=== PATIENT | male | born 1945 | race Caucasian/White ===

== ENCOUNTER 2018-11-10 18:37 | Inpatient (IN) | payer MEDICARE, OTHER ==
[2018-11-10 19:34] LABS: #Basophils 0.1 thou/uL (0.0-0.2); #Eosinphils 0.2 thou/uL (0.0-0.7); #Lymphocytes 2.7 thou/uL (1.20-3.40); #Monocytes 0.9 thou/uL (0.11-0.59); #Neutrophils 7.7 thou/uL (1.40-6.50); %Basophils 0.6 % (0.0-1.0); %Lymphocytes 23.2 % (21.0-51.0); %Neutrophils 66.1 % (42.0-75.0); Hemoglobin 15.4 g/dL (14.0-18.0); Mean Corpuscular HGB CONC 32.4 g/dL (32.0-36.0); Mean Corpuscular Hemoglobin 27.5 pg (27.0-31.0); Mean Corpuscular Volume 85.1 fL (78.0-98.0); Mean Platelet Volume 10.4 fL (7.4-10.4); Platelet Count 189 thou/uL (130-400); RBC Distribution Width 14.8 % (11.5-14.5); Red Blood Cell (RBC) Count 5.59 mill/uL (4.70-6.10); White Blood Cell (WBC) Count 11.6 thou/uL (4.8-10.8)
[2018-11-10 19:51] LABS: ALT (SGPT) 47 U/L (8-55); AST (SGOT) 32 U/L (5-34); Albumin 3.7 g/dL (3.4-4.8); Alkaline Phosphatase 95 U/L (40-150); Anion Gap 13 mmol/L (10-20); BUN (Urea Nitrogen) 23 mg/dL (8.4-25.7); Bilirubin, Total 0.4 mg/dL (0.2-1.2); CK (CPK) 64 U/L (30-200); Calc. Creatinine Clearance 0 mL/min (70-130); Carbon Dioxide 23 mmol/L (23-31); Chloride 106 mmol/L (98-107); Estimated GFR-MDRD 41; Globulin 3.9 g/dL (2.4-3.5); Glucose 282 mg/dL (83-110); Potassium 4.4 mmol/L (3.5-5.1); Protein, Total 7.6 g/dL (5.8-8.1); Sodium 138 mmol/L (136-145)
[2018-11-10] MEDS ORDERED: methylPREDNISolone Sod Succ/PF 125 MG/2 ML VIAL ONE (20:10)
[2018-11-10] MEDS ORDERED: Water For Inject, Bacteriostat 30 ML ONE (20:10)
[2018-11-10] MEDS ORDERED: Nitroglycerin 2% Ointment 1 INCH/1 GM Packet ONE (20:10)
[2018-11-10 20:13] LABS: CKMB 3.3 ng/mL (0-6.6)
[2018-11-10] MEDS ORDERED: Furosemide 40 MG/4 ML VIAL ONE (20:24)
--- NOTE | 2018-11-10 20:29 | RAD ---
PORTABLE AP CHEST X-RAY 11/10/18 HISTORY: Dyspnea. COMPARISON: 01/24/11 FINDINGS: The left subclavian Mediport catheter has been removed. The cardiac silhouette is magnified by proje ction. There is increased perihilar interstitial densities bilaterally more prominent on the left. Th e findings may be related to either asymmetric edema or an infectious process. The left lateral costo phrenic angle is excluded from view. Vascular calcifications are seen in an ectatic thoracic aorta. N o other interval change. IMPRESSION: Increased perihilar interstitial densities greater on the left which may be related to pulmonary mary a or infectious process. Follow up to resolution is recommended. POS: AMY
--- NOTE | 2018-11-10 21:33 | PDOC.FPRHP ---
- History of Present Illness Chief Complaint: dyspnea History of Present Illness: 73 yo M with PMH of HTN, T2DM, DENAE, Crohns, HLD presents for SOB. He reports always being SOB, but yesterday it began worsening. He noticed he could only walk about 15 steps before breathing hard. Today his SOB continued to worsen, so he laid down and started using his CPAP, which helped. He could not take the CPAP off without feeling more SOB. He called EMS. When they arrived, he was hypoxic to the low 80s, so he was started on Bipap and his respiratory distress improved; his O2 sats improved to low 90s. CXR showed pulmonary edema, EKG showed new LBBB, QT prolongation, and 1st degree heart block. Trop was indeterminate. He denied any chest pain or fever. He was given nitrobid paste, lasix, duoneb, and methylprednisolone His breathing improved and he was taken off Bipap, satting 92% on RA with respirations of 20/min. Patient states he has been exposed to asbestos numerous times in his life, and is being worked up at [facility] for "lung problems." - Allergies/Adverse Reactions Allergies Allergy/AdvReac Type Severity Reaction Status Date / Time Sulfa (Sulfonamide Allergy Verified 01/23/16 13:47 Antibiotics) - Home Medications Medication Instructions Recorded Confirmed Type Diphenoxylate HCl/Atropine 2 tab PO QID PRN 12/14/14 11/10/18 History [Lomotil] Insulin Aspart [NovoLOG Vial] 70 unit SC TID 12/14/14 11/10/18 History Insulin Detemir 100 UNITS/ML 105 units SC BID 12/14/14 11/10/18 History [Levemir] Metoprolol Tartrate [Lopressor] 1 tab PO BID 12/14/14 11/10/18 History Oxymetazoline HCl [Afrin Nasal 2 - 3 spray EA NARE BID PRN 12/14/14 11/10/18 History [place]] traMADol HCl [Tramadol HCl] 50 mg PO Q8HR PRN 12/14/14 11/10/18 History Amlodipine Besylate [amLODIPine 10 mg PO DAILY 11/05/15 11/10/18 History Besylate] Cyclobenzaprine [Flexeril] 10 mg PO TID PRN 11/05/15 11/10/18 History Venlafaxine HCl [Venlafaxine HCl 3 tab PO DAILY 11/05/15 11/10/18 History ER] traZODone HCl 1 tab PO HS 11/05/15 11/10/18 History rOPINIRole HCl [Ropinirole HCl] 2 mg PO HS 11/09/15 11/10/18 History Ferrous Sulfate [Feosol] 325 mg PO QAM-WM #0 tab 03/09/16 11/10/18 Rx Atorvastatin Calcium 10 mg PO DAILY 11/10/18 11/10/18 History Loperamide HCl [Imodium] 2 mg PO ASDIR PRN 11/10/18 11/10/18 History Loratadine 10 mg PO DAILY 11/10/18 11/10/18 History Multivit-Min/FA/Lycopen/Lutein 1 each PO DAILY 11/10/18 11/10/18 History [Centrum Silver Tablet] Naproxen Sodium [Aleve] 220 mg PO BID PRN 11/10/18 11/10/18 History Tamsulosin HCl 0.4 mg PO DAILY 11/10/18 11/10/18 History guaiFENesin ER [Mucinex] 600 mg PO BID PRN 11/10/18 11/10/18 History - History PMHx: DM, HTN, HLD, COPD, Crohns, DENAE, anxiety, RLS, depression PSHx: total L knee x3, Rt kidney removed for benign growth in 2003, L shoulder surgery, cholecystectomy, L femur ortho surgery FHx: Denies fam hx of cardiac issues Social: former smoker, quit 40 yrs ago, 42 yr pack history; occasional scotch use <1/month, denies drug use. Formerly in the [employer]. - Review of Systems General: reports: weight/appetite/sleep changes (unable to eat much because of SOB). denies: fever/chills Eyes: denies: eye pain, vision changes ENT: reports: nasal congestion, rhinorrhea Respiratory: reports: congestion, shortness of breath, exercise intolerance. denies: cough Cardiovascular: reports: edema (occasional minimal swelling in feet/ankles). denies: chest pain, palpitation Gastrointestinal: reports: diarrhea (occasional, crohns). denies: nausea, vomiting, constipation, abdominal pain, GI bleeding Genitourinary: denies: dysuria, polyuria Skin: denies: rashes, lesions Musculoskeletal: reports: pain (low back pain chronic). denies: stiffness, swelling, arthritis/arthralgias Neurological: denies: numbness, syncope, weakness Psychological: reports: anxiety, depression - Vital signs BP: [135/97] HR: [85] RR: [20] Tmax: [98.8] Pox: [95]% on [bipap] Wt: [133 kg ] - Physical Exam Constitutional: NAD, awake, alert and oriented HEENT: normocephalic and atraumatic, PERRLA, EOMI, conjunctiva clear, grossly normal hearing, MMM, oropharynx clear Neck: supple, no LAD Heart: RRR, normal S1/S2, no murmurs/rubs/gallops, pulses present, other (trace pitting edema in BLE) Lungs: other (Respiration 20/minute on RA, sats 92% on RA; good air movement, + expiratory wheezes more pronounced at bases) Abdomen: soft, non-tender, bowel sounds present, other (obese) Musculoskeletal: normal structure, normal tone, ROM grossly normal Neurological: no focal deficit Skin: no rash/lesions, good turgor, capillary refill <2 seconds Heme/Lymphatic: no unusual bruising or bleeding, no petechia Psychiatric: normal mood and affect, good judgment and insight, intact recent and remote memory FMR H&P: Results - Labs Result Diagrams: 11/11/18 01:28 11/11/18 01:28 Lab results: WBC 11.6 thou/uL (4.8-10.8) H 11/10/18 19:18 Hgb 15.4 g/dL (14.0-18.0) 11/10/18 19:18 Hct 47.5 % (42.0-52.0) 11/10/18 19:18 MCV 85.1 fL (78.0-98.0) 11/10/18 19:18 Plt Count 189 thou/uL (130-400) 11/10/18 19:18 Neutrophils % 66.1 % (42.0-75.0) 11/10/18 19:18 Sodium 138 mmol/L (136-145) 11/10/18 19:18 Potassium 4.4 mmol/L (3.5-5.1) 11/10/18 19:18 Chloride 106 mmol/L (98-107) 11/10/18 19:18 Carbon Dioxide 23 mmol/L (23-31) 11/10/18 19:18 BUN 23 mg/dL (8.4-25.7) 11/10/18 19:18 Creatinine 1.66 mg/dL (0.7-1.3) H 11/10/18 19:18 Glucose 282 mg/dL (83-110) H 11/10/18 19:18 Calcium 9.0 mg/dL (7.8-10.44) 11/10/18 19:18 Total Bilirubin 0.4 mg/dL (0.2-1.2) 11/10/18 19:18 AST 32 U/L (5-34) 11/10/18 19:18 ALT 47 U/L (8-55) 11/10/18 19:18 Alkaline Phosphatase 95 U/L (40-150) 11/10/18 19:18 Creatine Kinase 64 U/L (30-200) 11/10/18 19:18 CK-MB (CK-2) 3.3 ng/mL (0-6.6) 11/10/18 19:18 B-Natriuretic Peptide 400.1 pg/mL (0-100) H 11/10/18 19:18 Serum Total Protein 7.6 g/dL (5.8-8.1) 11/10/18 19:18 Albumin 3.7 g/dL (3.4-4.8) 11/10/18 19:18 - EKG Interpretation EKG: New LBBB compared to EKG in 2010, prolonged QTc (>500), WA interval of 202 ( first degree heart block) - Radiology Interpretation Chest x-ray Status: image reviewed by me, report reviewed by me Additional comment: pulmonary congestion FMR H&P: A/P - Problem List (1) Acute respiratory failure with hypoxia Current Visit: Yes Status: Acute Code(s): J96.01 - ACUTE RESPIRATORY FAILURE WITH HYPOXIA (2) New onset left bundle branch block (LBBB) Current Visit: Yes Status: Acute Code(s): I44.7 - LEFT BUNDLE-BRANCH BLOCK, UNSPECIFIED (3) GRACE (acute kidney injury) Current Visit: Yes Status: Acute Code(s): N17.9 - ACUTE KIDNEY FAILURE, UNSPECIFIED (4) CKD (chronic kidney disease) Current Visit: Yes Status: Chronic Code(s): N18.9 - CHRONIC KIDNEY DISEASE, UNSPECIFIED (5) Prolonged Q-T interval on ECG Current Visit: Yes Status: Acute Code(s): R94.31 - ABNORMAL ELECTROCARDIOGRAM [ECG] [EKG] (6) First degree heart block by electrocardiogram Current Visit: Yes Status: Acute Code(s): I44.0 - ATRIOVENTRICULAR BLOCK, FIRST DEGREE (7) T2DM (type 2 diabetes mellitus) Current Visit: Yes Status: Chronic (8) HLD (hyperlipidemia) Current Visit: Yes Status: Chronic Code(s): E78.5 - HYPERLIPIDEMIA, UNSPECIFIED (9) BPH (benign prostatic hyperplasia) Current Visit: Yes Status: Chronic Code(s): N40.0 - BENIGN PROSTATIC HYPERPLASIA WITHOUT LOWER URINRY TRACT SYMP (10) RLS (restless legs syndrome) Current Visit: Yes Status: Chronic (11) Anxiety Current Visit: Yes Status: Chronic Code(s): F41.9 - ANXIETY DISORDER, UNSPECIFIED (12) Depression Current Visit: Yes Status: Chronic Code(s): F32.9 - MAJOR DEPRESSIVE DISORDER, SINGLE EPISODE, UNSPECIFIED (13) Crohns disease Current Visit: No Status: Chronic Code(s): K50.90 - CROHN'S DISEASE, UNSPECIFIED, WITHOUT COMPLICATIONS (14) DENAE (obstructive sleep apnea) Current Visit: No Status: Chronic Code(s): G47.33 - OBSTRUCTIVE SLEEP APNEA (ADULT) (PEDIATRIC) (15) HTN (hypertension) Current Visit: No Status: Chronic Code(s): I10 - ESSENTIAL (PRIMARY) HYPERTENSION Qualifiers: Hypertension type: essential hypertension Qualified Code(s): I10 - Essential (primary) hypertension - Plan 73 yo M presents with acute hypoxic respiratory failure 2/2 COPD vs CHF #Acute hypoxic respiratory failure 2/2 COPD vs CHF - Hypoxic to 80s via EMS, placed on Bipap and respiraotry distress improved, O2 improved to low 90s on Bipap - EKG showed new LBBB, prolonged QTc and Prolonged WA - CXR showed pulmonary edema - First trop indeterminate, continue to trend - Given Lasix, nitro, bipap, and steroids - Improved to 92% on RA, taken off bipap in ED - Admit to tele inpatient - Start lasix 40 BID - fluid restrict 1800 ml/day - AM BMP - Echo tomorrow - Consult cardiology in the AM - Duoneb q4h OUSMANE, albuterol q2h PRN - 40 mg PO steroids x 4 days - Doxycycline for pneumonia prophylaxis New LBBB -Cards consult in AM GRACE vs CKD -Cr of 1.66, elevated from last record in 2016 of 1.23 -History of Rt kidney removal 2/2 benign mass -Continue to monitor, may worsen with diuresis -Strict I/Os Prolonged QTC ->500 - Aware First degree heart block -WA interval of 202 -Aware, cards consult in AM Crohns - Continue home medication of Humira, immune compromised - Doxycycline for prophylaxis DM2 - Decrease home regimen (from 100 units) to 75 units Lantus BID as starting CC diet - Aggressive SSI - CC diet with fluid restriction DENAE -Cpap HTN - Home medication HLD - Home medication, increase from 10 mg to 40 mg QHS BPH - strict I/Os - continue tamsulosin RLS - ropinorole Anxiety - Aware Depression - Aware Morbid Obesity Diet: CC, 1800 ml/day fluid restrict Ppx: lovenox, pharmacy to dose Tele inpatient Code status: Cardiac only (no intubation) Dispo: >2 midnights FMR H&P: Upper Level - Pertinent history 73 yo WM PMH HTN, DM2, Chron's disease, and unspecified lung disease undergoing evaluation at [facility]/[place]. Reports 1 day history of worsening SOB/YU. States he always has some degree of SOB at baseline for past 2-3 years. Tried to lie down which made symptoms worse. Started using his CPAP which helped with SOB. Brought to ER by EMS. Initial SpO2 was low 80s on Room air. Started on BiPAP by EMS. Was weaned off BiPAP in ER. Denies chest pain, numbness, tingling, ZHANG, or weakness. ER course: Labs, EKG, CXR, Solumedrol 125 mg, Duoneb x1, lasix 40 mg, nitro paste x1 inch. PMH Tobacco abuse, hx exposure to asbestos. - Pertinent findings Vitals: BP: 135/84, SpO2 94%/RA, otherwise WNL GEN: NAD, speaks in full sentences, A&Ox4 CV: RRR, no murmur Pulm: Normal effort, diffuse wheezing, did not appreciate bibasilar crackles. Extrem: trace edema Labs: trop 0.238, BNP 400.1, Procal 0.04 1.66, WBC 11.6 CXR: Pulmonary edema vs infiltrate EKG: rate 88, SR with PVC, LBBB (new), WA interval 202, QTc 534 - Plan Date/Time: 11/10/182132 I, Hao Crawley MD, have evaluated this patient and agree with findings/plan as outlined by internet merchant resident. Pertinent changes/additions are listed here. 1. Acute hypoxic respiratory distress (Resolved) 2/2 CHF exacerbation vs COPD exacerbation: Initially required BiPAP but was titrated off in ER. continue lasix 40 mg IVP BID, fluid restriction 1800 mL/day, daily weights. Tele monitoring. Prednisone 40 mg daily. OUSMANE q4hr Duoneb. Since he is on humeria, will start doxycycline 2. Presumed new onset CHF: No record of CHF in chart. check TTE, cardiology consult tomorrow. He is already on metoprolol so I suspect this may be a known diagnosis. Patient denies hx of CHF. 3. COPD: see #1 4. HTN: home meds, PRNs available 5. HTN urgency: improving, PRN available 6. DM2: Home meds, hold metformin, 7. DENAE: CPAP HS 8. GRACE vs CKD: repeat BMP tomorrow 9. BPH: flomax, monitor urine output. 10. Crohns disease: home meds. 11. Prolonged QTc Interval: monitor. 12. Demand ischemia: trend trop x3. - PPx: lovenox - Diet: HH, CC, fluid restrict 1800 mL - CODE: DNI - Dispo: inpatient, telemetry, >[address] Cee. Addendum - Attending - Attending Attestation Date/Time: 11/11/18 1564 I personally evaluated the patient and discussed the management with Dr. Salmon and Dr Crawley last night. I agree with the History, Examination, Assessment and Plan documented above with any addition or exceptions noted below.
[2018-11-10] MEDS ORDERED: Cyclobenzaprine 10 MG TAB PO PRN (22:54)
[2018-11-10] MEDS ORDERED: Diphenoxylate HCl/Atropine Tablet PO PRN (22:54)
[2018-11-10] MEDS ORDERED: traMADol HCl 50 MG TAB PO PRN (22:54)
[2018-11-10] MEDS ORDERED: Loratadine 10 MG TAB PO SCH (23:00)
[2018-11-10] MEDS ORDERED: Acetaminophen 325 MG TAB PO PRN ×2 (23:09→23:11)
[2018-11-10] MEDS ORDERED: Ondansetron ODT 4 MG TAB SL PRN (23:09)
[2018-11-10] MEDS ORDERED: Ondansetron PF 4 MG/2 ML Vial IVP PRN (23:09)
[2018-11-10] MEDS ORDERED: Dextrose 50% Abboject 50 ML SYRINGE SLOW IVP PRN (23:11)
[2018-11-10] MEDS ORDERED: Insulin Regular 300 UNITS/3 ML VIAL SC PRN (23:11)
[2018-11-10] MEDS ORDERED: Acetaminophen 650 MG Suppository PR PRN (23:11)
[2018-11-10] MEDS ORDERED: Dextrose 5% in Water 1,000 ML IV PRN (23:11)
[2018-11-10 23:12] LABS: Troponin I 0.308 ng/mL (< 0.028)
--- NOTE | 2018-11-11 00:05 | PDOC.EVN ---
Event Note - Event Note Event Note: Date/Time: 11/11/18 0003 I personally evaluated the patient and discussed the management with Dr. Crawley and Dr. Salmon. H&P is pending. I will review and sign when available. I agree with the History, Examination, Assessment and Plan as discussed. COPD exacerbation with some concern for CHF. GRACE vs CKD.
[2018-11-11 01:36] LABS: #Lymphocytes 1.8 thou/uL (1.20-3.40); #Monocytes 0.1 thou/uL (0.11-0.59); #Neutrophils 8.4 thou/uL (1.40-6.50); %Basophils 0.2 % (0.0-1.0); %Eosinophils 0.2 % (0.0-10.0); %Lymphocytes 17.3 % (21.0-51.0); %Monocytes 0.5 % (0.0-10.0); %Neutrophils 81.8 % (42.0-75.0); Mean Corpuscular HGB CONC 32.6 g/dL (32.0-36.0); Mean Corpuscular Hemoglobin 27.6 pg (27.0-31.0); Mean Corpuscular Volume 84.7 fL (78.0-98.0); Mean Platelet Volume 10.7 fL (7.4-10.4); Platelet Count 183 thou/uL (130-400); RBC Distribution Width 14.8 % (11.5-14.5); Red Blood Cell (RBC) Count 5.44 mill/uL (4.70-6.10); White Blood Cell (WBC) Count 10.3 thou/uL (4.8-10.8)
[2018-11-11 02:02] LABS: Troponin I 0.244 ng/mL (< 0.028)
[2018-11-11 02:06] LABS: Anion Gap 18 mmol/L (10-20); BUN (Urea Nitrogen) 25 mg/dL (8.4-25.7); Calc. Creatinine Clearance 67 mL/min (70-130); Calcium 9.2 mg/dL (7.8-10.44); Carbon Dioxide 19 mmol/L (23-31); Chloride 105 mmol/L (98-107); Estimated GFR-MDRD 36; Glucose 463 mg/dL (83-110); Sodium 138 mmol/L (136-145)
[2018-11-11] MEDS: Amlodipine 10 MG TAB PO SCH (08:39)
[2018-11-11] MEDS: Metoprolol Tartrate 100 MG TAB PO SCH ×2 (08:40→20:34)
[2018-11-11] MEDS: Doxycycline 100 MG CAP PO SCH ×2 (08:40→20:34)
[2018-11-11] MEDS: predniSONE 20 MG TAB PO SCH (08:40)
[2018-11-11] MEDS: Famotidine 20 MG TAB PO SCH (08:40)
[2018-11-11] MEDS ORDERED: Enoxaparin Sodium 40 MG/0.4 ML SYRINGE SC SCH (09:00)
[2018-11-11] MEDS ORDERED: Prevnar 13-Val Conj/PF 0.5 ML SYRINGE IM ONE (09:00)
[2018-11-11] MEDS ORDERED: Insulin Glargine 75 UNITS in Pre-Filled Syringe 1 EACH SC SCH ×2 (09:00→21:00)
--- NOTE | 2018-11-11 09:14 | PDOC.FM ---
- Subjective Subjective: Vamsi Herndon seen at bedside this morning. He came in last night with severe dyspnea, requiring BiPAP but was titrated off in the ED. Required his normal CPAP for DENAE overnight. Started on prednisone, duonebs, and doxycycline for copd exac. He is feeling better this morning, states that his dyspnea is much improved. Denies any other acute issues since moving to the floor. Denies fever, chills, chest pain, n/v, diaphoresis. - Objective MAR Reviewed: Yes Vital Signs & Weight: Vital Signs (12 hours) Temp Pulse Resp BP Pulse Ox 11/11/18 08:39 102 H 11/11/18 08:36 98.0 F 102 H 16 144/86 H 93 L 11/11/18 04:00 97.8 F 96 20 147/77 H 94 L 11/10/18 23:05 97.7 F 99 18 143/71 H 94 L Weight Weight 130.89 kg I&O: 11/10/18 11/11/18 11/12/18 06:59 06:59 06:59 Intake Total 720 240 Output Total 575 400 Balance 145 -160 Result Diagrams: 11/11/18 01:28 11/11/18 01:28 Phys Exam - Physical Examination Constitutional: NAD HEENT: moist MMs, sclera anicteric Neck: no JVD, supple, full ROM Respiratory: no rales, no rhonchi mild diffuse expiratory wheezes Cardiovascular: RRR, no significant murmur Gastrointestinal: soft, non-tender Musculoskeletal: no edema, pulses present Neurological: non-focal, normal sensation, moves all 4 limbs Psychiatric: normal affect, A&O x 3 Skin: no rash Dx/Plan (1) Acute respiratory failure with hypoxia Code(s): J96.01 - ACUTE RESPIRATORY FAILURE WITH HYPOXIA Status: Acute (2) COPD exacerbation Code(s): J44.1 - CHRONIC OBSTRUCTIVE PULMONARY DISEASE W (ACUTE) EXACERBATION Status: Acute (3) New onset of congestive heart failure Code(s): I50.9 - HEART FAILURE, UNSPECIFIED Status: Acute (4) Acute kidney injury superimposed on CKD Code(s): N17.9 - ACUTE KIDNEY FAILURE, UNSPECIFIED; N18.9 - CHRONIC KIDNEY DISEASE, UNSPECIFIED Status: Acute (5) New onset left bundle branch block (LBBB) Code(s): I44.7 - LEFT BUNDLE-BRANCH BLOCK, UNSPECIFIED Status: Acute (6) DENAE (obstructive sleep apnea) Code(s): G47.33 - OBSTRUCTIVE SLEEP APNEA (ADULT) (PEDIATRIC) Status: Chronic (7) T2DM (type 2 diabetes mellitus) Status: Chronic (8) HTN (hypertension) Code(s): I10 - ESSENTIAL (PRIMARY) HYPERTENSION Status: Chronic Qualifiers: Hypertension type: essential hypertension Qualified Code(s): I10 - Essential (primary) hypertension (9) HLD (hyperlipidemia) Code(s): E78.5 - HYPERLIPIDEMIA, UNSPECIFIED Status: Chronic (10) BPH (benign prostatic hyperplasia) Code(s): N40.0 - BENIGN PROSTATIC HYPERPLASIA WITHOUT LOWER URINRY TRACT SYMP Status: Chronic - Plan Plan: 1) Acute hypoxic respiratory distress (Resolved): - likely 2/2 COPD exacerbation, with possible new onset CHF - 50 pk year history of smoking with known COPD, 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 - Continue fluid restriction 1800 mL/day, daily weights. - Prednisone 40 mg daily. OUSMANE q4hr Duoneb, and doxycycline 2) Presumed new onset CHF: - No record of CHF in chart. - Consulted cardiology, Dr. Tran, appreciate recs. - Continue home CCB and BB - Holding off on initiating low dose ACEI and Lasix at this time due to GRACE 3) COPD: - see #1 4) HTN: - home meds, PRNs available 5) HTN urgency: - improving, PRN available 6) DM2: Home meds, hold metformin, 7) DENAE: - CPAP HS 8) GRACE vs CKD: - avoiding nephrotoxic agents, repeat BMP tomorrow 9) BPH: - flomax, monitor urine output. 10) Crohns disease: - home meds. 11) Prolonged QTc Interval: - monitor on tele, avoid QT prolonging agents 12) Demand ischemia: - 3rd trop downtrended, highest trop was 0.308 Addendum - Attending - Attending Attestation Date/Time: 11/11/18 [id number] I personally evaluated the patient and discussed the management with Dr. Alvarez. I agree with the History, Examination, Assessment and Plan documented above with any addition or exceptions noted below. Pt's breathing is better. With new onset chf will consult cardiology.
[2018-11-11 09:58] LABS: Hemoglobin A1c 7.6 % (4.0-6.0)
[2018-11-11] MEDS ORDERED: INSULIN ASPART 70 UNIT SC SCH (15:00)
[2018-11-11] MEDS: HumaLOG 300 UNITS/3 ML VIAL SC SCH ×2 (15:59→20:36)
[2018-11-11] MEDS: rOPINIRole HCl 1 MG TAB PO SCH (20:33)
[2018-11-11] MEDS: traZODone HCl 50 MG TAB PO SCH (20:34)
[2018-11-11] MEDS: Tamsulosin HCl 0.4 MG CAP PO SCH (20:34)
[2018-11-11] MEDS: Insulin Glargine 75 UNITS in Pre-Filled Syringe 1 EACH SC SCH (20:37)
[2018-11-11] MEDS ORDERED: Atorvastatin Calcium 40 MG TAB PO SCH (21:00)
[2018-11-11] MEDS ORDERED: INSULIN DETEMIR SC SCH (21:00)
--- NOTE | 2018-11-11 21:50 | CON ---
DATE OF CONSULTATION: HISTORY OF PRESENT ILLNESS: Vamsi Herndon is a 73-year-old white male, who denies any previous cardiac problems, although at times looking over his records over the past 4 or 5 years, people do state that he has coronary artery disease. He denies ever being told that he had coronary artery disease. Denies any history of myocardial infarction. He also denies any chest, arm, neck or jaw discomfort. His main problem over the last 6 months to a year has been with exertional dyspnea. He denies any episodes of PND or orthopnea. He occasionally will have some pedal edema. He now was admitted on November 10 with severe shortness of breath after just walking 15 or 20 feet. He has a CPAP machine at home and used that, but he continued to feel short of breath. He called EMS and when they arrived, his O2 sats were in the low 80s. He was placed on BiPAP. His respiratory distress improved. He was given intravenous diuretics and states that his breathing is now better. Chest x-ray in the emergency room revealed increased pulmonary vascularity consistent with pulmonary edema. He also states that he has been evaluated by a cut off operator scorer at [facility] and was told that his lung function was only 65 %. 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 OPERATIONS: Left total knee replacement in December 2014 followed by removal of the prosthesis in October 2015 secondary to infection and then placement of a new total knee in january 2016, open cholecystectomy, right kidney removal for benign growth , left shoulder surgery, left femur surgery. MEDICATIONS: 1. Amlodipine 10 mg daily. 2. Atorvastatin 10 mg daily. 3. Flexeril 10 mg t.i.d. 4. Lomotil p.r.n. 5. Ferrous sulfate 325 q.a.m. 6. Mucinex 600 mg b.i.d. p.r.n. 7. NovoLog 70 units t.i.d. 8. Levemir 105 units b.i.d. 9. Imodium p.r.n. 10. Loratadine 10 mg daily. 11. Metoprolol 100 mg b.i.d. 12. Multivitamin daily. 13. Aleve 220 mg b.i.d. p.r.n. 14. Afrin nasal spray. 15. Ropinirole 2 mg at bedtime. 16. Flomax 0.4 mg daily. 17. Tramadol 50 mg q.8 hours p.r.n. 18. Trazodone 100 mg at bedtime. 19. Venlafaxine 3 tablets daily. ALLERGIES: SULFA. SOCIAL HISTORY: Smoked 3 packs per day, but stopped over 40 years ago. He occasionally drinks scotch. FAMILY HISTORY: Unremarkable for cardiac disease. REVIEW OF SYSTEMS: A 12-point review of systems is otherwise unremarkable. PHYSICAL EXAMINATION: VITAL SIGNS: Blood pressure 129/58, pulse of 91. HEENT: PERRL. NECK: Supple. CHEST: Clear but distant. CARDIOVASCULAR: S1 and S2 normal without any S3, S4, or murmurs. ABDOMEN: Obese. Normal bowel sounds. No tenderness. EXTREMITIES: Revealed no clubbing or cyanosis. There was trace pretibial edema. NEUROLOGIC: Grossly intact. SKIN: Warm and dry. LABORATORY DATA: EKG reveals sinus rhythm with occasional PVC and left bundle-branch block (new from 2014). Hemoglobin 15.0; hematocrit 46.0; white count 10,300; platelets 186,000. Sodium 138, potassium 4.0, chloride 105, carbon dioxide 19, BUN 25, creatinine 1.87, glucose 463. Troponin I is up to 0.308. BNP 400.1. Chest x-ray reveals pulmonary edema. IMPRESSION: 1. Acute hypoxic respiratory failure. 2. Chronic obstructive pulmonary disease. 3. Possible left ventricular dysfunction with evidence of pulmonary edema on chest x-ray. 4. Hypertension. 5. Diabetes. 6. Hypercholesterolemia. 7. Former smoker. 8. Obesity. 9. Obstructive sleep apnea. 10. Restless legs syndrome. 11. Crohn disease. PLAN: The patient will continue to be gently diuresed. Echocardiogram will be performed to assess left ventricular function. Further recommendations will be dependent upon the results of his echocardiogram. Job ID: [id number] [facility]
[2018-11-12 06:02] LABS: #Lymphocytes 2.6 thou/uL (1.20-3.40); #Monocytes 1.4 thou/uL (0.11-0.59); %Basophils 0.3 % (0.0-1.0); %Eosinophils 0.1 % (0.0-10.0); %Lymphocytes 18.8 % (21.0-51.0); %Neutrophils 70.9 % (42.0-75.0); Hemoglobin 12.9 g/dL (14.0-18.0); Mean Corpuscular HGB CONC 32.8 g/dL (32.0-36.0); Mean Corpuscular Hemoglobin 27.7 pg (27.0-31.0); Mean Corpuscular Volume 84.6 fL (78.0-98.0); Mean Platelet Volume 10.7 fL (7.4-10.4); Platelet Count 196 thou/uL (130-400); RBC Distribution Width 14.7 % (11.5-14.5); Red Blood Cell (RBC) Count 4.65 mill/uL (4.70-6.10); White Blood Cell (WBC) Count 14.1 thou/uL (4.8-10.8)
[2018-11-12 06:20] LABS: Anion Gap 15 mmol/L (10-20); BUN (Urea Nitrogen) 34 mg/dL (8.4-25.7); Calc. Creatinine Clearance 76 mL/min (70-130); Calcium 9.1 mg/dL (7.8-10.44); Carbon Dioxide 22 mmol/L (23-31); Cardiac Risk 3.6 (Less than 4.5); Chloride 109 mmol/L (98-107); Cholesterol 135 mg/dl (< 200 Desired); Estimated GFR-MDRD 41; Glucose 110 mg/dL (83-110); HDL Cholesterol 37 mg/dL (>60 Neg Risk); LDL Cholesterol, Calculated 76 mg/dL; Potassium 3.7 mmol/L (3.5-5.1); Sodium 142 mmol/L (136-145); Triglycerides 108 mg/dL (Less than 150)
[2018-11-12] MEDS ORDERED: Lidocaine 1% (PF) 30 ML VIAL ONE (06:40)
--- NOTE | 2018-11-12 06:40 | PDOC.FM ---
- Subjective Subjective: Vamsi Herndon seen at bedside this morning. Yesterday, his Echo showed EF of 20- 25% and he was scheduled for cardiac cath this morning. Cath was performed successfully and showed three vessel disease and patient is now planned to undergo CABG. From a respiratory standpoint he is doing very well. Denies any respiratory distress. Denies chest pain, n/v, fevers. - Objective MAR Reviewed: Yes Vital Signs & Weight: Vital Signs (12 hours) Temp Pulse Resp BP Pulse Ox 11/12/18 04:00 99.4 F 78 18 133/60 95 11/12/18 02:18 90 16 95 11/11/18 22:12 87 16 95 11/11/18 20:20 98.8 F 90 18 131/60 92 L Weight Weight 130.89 kg I&O: 11/10/18 11/11/18 11/12/18 06:59 06:59 06:59 Intake Total 720 1240 Output Total 575 800 Balance 145 440 Result Diagrams: 11/12/18 04:25 11/12/18 04:25 Phys Exam - Physical Examination Constitutional: NAD HEENT: moist MMs, sclera anicteric Neck: supple, full ROM Respiratory: no wheezing, no rales, no rhonchi, clear to auscultation bilateral Cardiovascular: RRR, no significant murmur Gastrointestinal: soft, non-tender, no distention Musculoskeletal: no edema, pulses present Neurological: non-focal, normal sensation, moves all 4 limbs Psychiatric: normal affect, A&O x 3 Skin: no rash Dx/Plan (1) Acute respiratory failure with hypoxia Code(s): J96.01 - ACUTE RESPIRATORY FAILURE WITH HYPOXIA Status: Resolved (2) COPD exacerbation Code(s): J44.1 - CHRONIC OBSTRUCTIVE PULMONARY DISEASE W (ACUTE) EXACERBATION Status: Acute (3) New onset of congestive heart failure Code(s): I50.9 - HEART FAILURE, UNSPECIFIED Status: Acute (4) Acute kidney injury superimposed on CKD Code(s): N17.9 - ACUTE KIDNEY FAILURE, UNSPECIFIED; N18.9 - CHRONIC KIDNEY DISEASE, UNSPECIFIED Status: Acute (5) New onset left bundle branch block (LBBB) Code(s): I44.7 - LEFT BUNDLE-BRANCH BLOCK, UNSPECIFIED Status: Acute (6) DENAE (obstructive sleep apnea) Code(s): G47.33 - OBSTRUCTIVE SLEEP APNEA (ADULT) (PEDIATRIC) Status: Chronic (7) T2DM (type 2 diabetes mellitus) Status: Chronic (8) HTN (hypertension) Code(s): I10 - ESSENTIAL (PRIMARY) HYPERTENSION Status: Chronic Qualifiers: Hypertension type: essential hypertension Qualified Code(s): I10 - Essential (primary) hypertension (9) HLD (hyperlipidemia) Code(s): E78.5 - HYPERLIPIDEMIA, UNSPECIFIED Status: Chronic (10) BPH (benign prostatic hyperplasia) Code(s): N40.0 - BENIGN PROSTATIC HYPERPLASIA WITHOUT LOWER URINRY TRACT SYMP Status: Chronic - Plan Plan: 1) Acute hypoxic respiratory distress (Resolved): - likely 2/2 COPD exacerbation, with possible new onset CHF - 50 pk year history of smoking with known COPD, 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 - Continue fluid restriction 1800 mL/day, daily weights. - Prednisone 40 mg daily. PRN q4hr Duoneb, and doxycycline 2) Presumed new onset CHF: - No record of CHF in chart. - Consulted cardiology, Dr. Tran, appreciate recs. - Continue home CCB and BB - Holding off on initiating low dose ACEI and Lasix at this time due to GRACE - Echo showed depressed LV function, EF of 20-25% - Underwent Cardiac Cath this morning showed 3 vessel disease - CV Surg has been consulted for CABG 3) COPD: - see #1 4) HTN: - home meds, PRNs available 5) HTN urgency: resolved - PRN available 6) DM2: - Home meds, hold metformin 7) DENAE: - CPAP HS 8) GRACE vs CKD: - avoiding nephrotoxic agents, repeat BMP tomorrow 9) BPH: - flomax, monitor urine output. 10) Crohns disease: - home meds. 11) Prolonged QTc Interval: - monitor on tele, avoid QT prolonging agents 12) Demand ischemia: - 3rd trop downtrended, highest trop was 0.308 Addendum - Attending - Attending Attestation Date/Time: 11/12/18 0729 I personally evaluated the patient and discussed the management with Dr. Alvarez. I agree with the History, Examination, Assessment and Plan documented above with any addition or exceptions noted below. Echo shows reduced ejection fraction. Pt taken to clinical laboratory technologist today which showed multi-vessel disease. CV surg will be consulted for CABG. Continue COPD treatment as well.
[2018-11-12] MEDS ORDERED: Heparin 10,000 UNITS/1 ML VIAL ONE (06:47)
[2018-11-12] MEDS ORDERED: Sodium Chloride 0.9% 1,000 ML IV SCH ×2 (07:30→08:46)
[2018-11-12] MEDS ORDERED: Communication Order-Pharmacy FS SCH ×2 (07:30→16:23)
[2018-11-12] MEDS ORDERED: Fentanyl 100 MCG/2 ML VIAL ONE (07:44)
[2018-11-12] MEDS ORDERED: Midazolam HCl 2 mg/2 ml Vial ONE (07:44)
[2018-11-12] MEDS ORDERED: Furosemide 40 MG/4 ML VIAL ONE (08:08)
[2018-11-12] MEDS ORDERED: Nitroglycerin 4.9 GM Bottle ONE (08:11)
[2018-11-12] MEDS ORDERED: Protamine Sulfate 50 MG/5 ML VIAL ONE (08:14)
[2018-11-12] MEDS ORDERED: Nitroglycerin 0.4 MG TAB (25 Tab Bottle) SL PRN (08:44)
[2018-11-12] MEDS ORDERED: traMADol HCl 50 MG TAB PO PRN (08:44)
[2018-11-12] MEDS ORDERED: Acetaminophen/Codeine 30-300mg Tablet PO PRN (08:44)
[2018-11-12] MEDS ORDERED: Sodium Chloride 0.9% 200 ML IV PRN (08:45)
[2018-11-12] MEDS: Amlodipine 10 MG TAB PO SCH (10:23)
[2018-11-12] MEDS: predniSONE 20 MG TAB PO SCH (10:24)
[2018-11-12] MEDS: Famotidine 20 MG TAB PO SCH (10:24)
[2018-11-12] MEDS: HumaLOG 300 UNITS/3 ML VIAL SC SCH ×3 (10:24→20:28)
[2018-11-12] MEDS: Doxycycline 100 MG CAP PO SCH ×2 (10:24→20:27)
[2018-11-12] MEDS: Metoprolol Tartrate 100 MG TAB PO SCH ×2 (10:24→20:31)
[2018-11-12] MEDS: Insulin Glargine 75 UNITS in Pre-Filled Syringe 1 EACH SC SCH ×2 (10:25→20:30)
[2018-11-12] MEDS ORDERED: Iopamidol 370 76% 100 ML VIAL ONE (10:53)
[2018-11-12] MEDS ORDERED: Iopamidol 370 76% 50 ML VIAL FS ONE (10:53)
--- NOTE | 2018-11-12 14:53 | CON ---
DATE OF CONSULTATION: 11/12/2018 REQUESTING PHYSICIAN: Dr. Tran. CHIEF COMPLAINT: Shortness of breath. HISTORY OF PRESENT ILLNESS: The patient is 73-year-old diabetic man, who for about two years has had problems with dyspnea on exertion. Up until that time, he maintained a reasonably active lifestyle, taking care of his horses, but over the last two years has had to slow down to the point, where when he brings hay from the [facility], he can only unload a couple of javid at a time before having to catch his breath. He had been at about that baseline for most of the last two years during which time he had gained a considerable amount of weight because of his decreasing level of activity, but then over the new year's holiday, he became dramatically much more short of breath. He does not recall any particular chest pain, pressure, or squeezing, or any other such symptoms radiating into his throat, jaws, back, shoulders, or arms. He tried to wait until the holiday passed to get an appointment with the doctor at the [facility], but after roughly a day of these symptoms gradually getting worse, he decided to come to the emergency room instead. At that point, he was only able to walk 20 feet or so before becoming profoundly short of breath. He had noticed some swelling in his legs, but he had not had any orthopnea or PND. His initial cardiac enzymes were elevated and a followup set did rise a little bit and then fall, but he did not have a dramatic spike. His initial BNP was elevated. His EKG showed a left bundle-branch block, which was new compared to an EKG several years ago. 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 MEDICATIONS: His home medications are; 1. Norvasc 10 mg a day. 2. Lopressor 100 mg b.i.d. 3. Lipitor 10 mg a day. 4. Flomax one a day. 5. Levemir insulin 105 units b.i.d. 6. NovoLog insulin 70 units t.i.d. 7. Ropinirole 2 mg a day. 8. Trazodone 100 mg a day. 9. Effexor, unquantified dose, three tablets a day. ALLERGIES: HE REPORTS ALLERGIES TO SULFA, WHICH CAUSES ITCHING. SOCIAL HISTORY: At one time smoked about three packs of cigarettes a day, but quit about 40 years ago. FAMILY HISTORY: He denies any of family history of coronary artery disease, but his father was diabetic. 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 REVIEW OF SYSTEMS: Negative for any transient eye, speech, facial, or extremity symptoms consistent with TIAs, negative for any extremity paresthesias. Negative for any claudication symptoms. Negative for any orthopnea or PND. Positive for some dependent edema. PHYSICAL EXAMINATION: VITAL SIGNS: He is 5 feet 11 inches, weighs 288 pounds, and appears reasonably comfortable. Heart rate is 84, blood pressure 143/67, temperature is 97.7, and room air O2 saturations are now 95%. By report, they were in the low 80s when EMS arrived. In the emergency room, there were 88% on room air, but came up to 99% on BiPAP. NECK: He has no JVD. No carotid bruits. CHEST: Clear to auscultation. HEART: He has regular rate and rhythm. ABDOMEN: His abdomen is protuberant, but soft and nontender. He has easily palpable radial, dorsalis pedis, and posterior tibial pulses. He has brisk capillary refill in his feet. He has 1+ pitting edema at the ankle. NEUROLOGIC: Grossly nonfocal. LABORATORY DATA: White count 11.6, hemoglobin 15.4, hematocrit 47.5, and platelets 189,000. Sodium 138, potassium 4.4, chloride 106, CO2 of 23, glucose 282, BUN 23, creatinine 1.66, estimated GFR was 41. His creatinine has remained stable during this brief hospitalization. His hemoglobin A1c was 7.6, calcium was 9.0, protein 7.6, albumin 3.7, bilirubin 0.4, alkaline phosphatase 95, AST 32, ALT 47. His initial troponin at about 0715 hours in the evening of the 1st was 0.238, at about 1030 hours was 0.308, and about 0115 hours on the 2nd, it was 0.244. His initial BNP was 400.1. Creatinine this morning was 1.66. Fasting lipids, triglycerides 108, cholesterol 135, LDL 76, HDL 37. DIAGNOSTIC DATA: His chest x-ray shows prominent pulmonary markings consistent with pulmonary edema. His EKG shows a left bundle-branch block. His cardiac catheterization shows right dominant system. He has a long area of high-grade stenosis between the relatively distal takeoff of a ramus type vessel bifurcated first diagonal, that diagonal has a high-grade lesion in its main trunk. The ramus type vessel is bifurcated and is large and reasonably normal. The groove circumflex appears to give off an occluded obtuse marginal filled by left-sided collaterals. The right coronary system has about a 60% or 70% mid lesion in it with a fairly large posterior descending. LVEF is around 20% to 30%. Aortic pressure is 138/72. LV pressures were 139/9 and 134/16 with EDPs of 29 and 36 respectively. IMPRESSION AND RECOMMENDATIONS: The patient may or may not have had a [id number] myocardial infarction precipitating this acute decompensation. He has been having failure symptoms that sound like they have been attributed to pulmonary disease for about two years now. When I asked him blow out hard against my hand, he was able to do so fairly forcefully, while at increased risk primarily from his cardiomyopathy. His best long-term outlook would be from successful coronary artery bypass surgery given his mild renal insufficiency at baseline and is dilated today. We will defer coronary artery bypass grafting to Friday. Job ID: [id number]
[2018-11-12] MEDS: Atorvastatin Calcium 20 MG TAB PO SCH (20:27)
[2018-11-12] MEDS: traZODone HCl 50 MG TAB PO SCH (20:31)
[2018-11-12] MEDS: Tamsulosin HCl 0.4 MG CAP PO SCH (20:31)
[2018-11-12] MEDS: Acetaminophen/Codeine 30-300mg Tablet PO PRN (20:36)
[2018-11-12] MEDS: rOPINIRole HCl 1 MG TAB PO SCH (22:46)
[2018-11-13 06:12] LABS: #Basophils 0.1 thou/uL (0.0-0.2); #Lymphocytes 3.5 thou/uL (1.20-3.40); #Monocytes 1.2 thou/uL (0.11-0.59); #Neutrophils 8.9 thou/uL (1.40-6.50); %Basophils 0.7 % (0.0-1.0); %Eosinophils 0.3 % (0.0-10.0); %Lymphocytes 25.3 % (21.0-51.0); %Monocytes 8.6 % (0.0-10.0); %Neutrophils 65.1 % (42.0-75.0); Hemoglobin 13.9 g/dL (14.0-18.0); Mean Corpuscular HGB CONC 32.2 g/dL (32.0-36.0); Mean Corpuscular Hemoglobin 27.4 pg (27.0-31.0); Mean Corpuscular Volume 85.1 fL (78.0-98.0); Mean Platelet Volume 10.2 fL (7.4-10.4); Platelet Count 199 thou/uL (130-400); Red Blood Cell (RBC) Count 5.05 mill/uL (4.70-6.10); White Blood Cell (WBC) Count 13.7 thou/uL (4.8-10.8)
[2018-11-13 06:32] LABS: Anion Gap 14 mmol/L (10-20); BUN (Urea Nitrogen) 30 mg/dL (8.4-25.7); Calc. Creatinine Clearance 86 mL/min (70-130); Calcium 8.5 mg/dL (7.8-10.44); Carbon Dioxide 22 mmol/L (23-31); Chloride 107 mmol/L (98-107); Estimated GFR-MDRD 49; Glucose 84 mg/dL (83-110); Potassium 4.2 mmol/L (3.5-5.1); Sodium 139 mmol/L (136-145)
--- NOTE | 2018-11-13 06:37 | PDOC.FM ---
- Subjective Subjective: Vamsi Herndon seen at bedside this morning. He is feeling well, he has no complaints and had no acute events overnight. From a respiratory standpoint, he is doing well. He is scheduled for a CABG on Friday11/16/18. Denies fever, chills, chest pain, dyspnea, n/v. - Objective MAR Reviewed: Yes Vital Signs & Weight: Vital Signs (12 hours) Temp Pulse Resp BP Pulse Ox 11/13/18 05:35 97 11/13/18 04:00 98.4 F 72 20 118/67 97 11/12/18 19:10 97.1 F L 83 18 139/64 95 Weight Weight 128.82 kg I&O: 11/11/18 11/12/18 11/13/18 06:59 06:59 06:59 Intake Total 720 2200 2440 Output Total 575 1425 3825 Balance 145 775 -1385 Result Diagrams: 11/13/18 05:58 11/13/18 05:58 Phys Exam - Physical Examination Constitutional: NAD HEENT: moist MMs, sclera anicteric Neck: supple, full ROM Respiratory: no wheezing, no rales, no rhonchi Cardiovascular: RRR, no significant murmur Gastrointestinal: soft, non-tender, no distention Musculoskeletal: no edema, pulses present Neurological: non-focal, normal sensation Psychiatric: normal affect, A&O x 3 Skin: no rash Dx/Plan (1) Acute respiratory failure with hypoxia Code(s): J96.01 - ACUTE RESPIRATORY FAILURE WITH HYPOXIA Status: Resolved (2) COPD exacerbation Code(s): J44.1 - CHRONIC OBSTRUCTIVE PULMONARY DISEASE W (ACUTE) EXACERBATION Status: Resolved (3) New onset of congestive heart failure Code(s): I50.9 - HEART FAILURE, UNSPECIFIED Status: Acute (4) Acute kidney injury superimposed on CKD Code(s): N17.9 - ACUTE KIDNEY FAILURE, UNSPECIFIED; N18.9 - CHRONIC KIDNEY DISEASE, UNSPECIFIED Status: Acute (5) New onset left bundle branch block (LBBB) Code(s): I44.7 - LEFT BUNDLE-BRANCH BLOCK, UNSPECIFIED Status: Acute (6) DENAE (obstructive sleep apnea) Code(s): G47.33 - OBSTRUCTIVE SLEEP APNEA (ADULT) (PEDIATRIC) Status: Chronic (7) T2DM (type 2 diabetes mellitus) Status: Chronic (8) HTN (hypertension) Code(s): I10 - ESSENTIAL (PRIMARY) HYPERTENSION Status: Chronic Qualifiers: Hypertension type: essential hypertension Qualified Code(s): I10 - Essential (primary) hypertension (9) HLD (hyperlipidemia) Code(s): E78.5 - HYPERLIPIDEMIA, UNSPECIFIED Status: Chronic (10) BPH (benign prostatic hyperplasia) Code(s): N40.0 - BENIGN PROSTATIC HYPERPLASIA WITHOUT LOWER URINRY TRACT SYMP Status: Chronic (11) CAD (coronary artery disease) Code(s): I25.10 - ATHSCL HEART DISEASE OF [place] CORONARY ARTERY W/O ANG PCTRS Status: Acute - Plan Plan: 1) Acute hypoxic respiratory distress (Resolved): - likely 2/2 COPD exacerbation, with possible new onset CHF - 50 pk year history of smoking with known COPD, 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 - Continue fluid restriction 1800 mL/day, daily weights. - Prednisone 40 mg daily. PRN q4hr Duoneb, and doxycycline 2) New onset CHF: - No record of CHF in chart. - Consulted cardiology, Dr. Tran, appreciate recs. - Continue home CCB and BB - Mild improvement in kidney function, starting low dose ACEI for cardiac remodeling - Echo showed depressed LV function, EF of 20-25% - Underwent Cardiac Cath this morning showed 3 vessel disease - CV Surg has been consulted for CABG 3) COPD: - see #1 4) HTN: - home meds, PRNs available 5) HTN urgency: resolved - PRN available 6) DM2: - Home meds, hold metformin 7) DENAE: - CPAP HS 8) GRACE vs CKD: - avoiding nephrotoxic agents, repeat BMP tomorrow 9) BPH: - flomax, monitor urine output. 10) Crohns disease: - home meds. 11) Prolonged QTc Interval: - monitor on tele, avoid QT prolonging agents 12) Demand ischemia: - 3rd trop downtrended, highest trop was 0.308 13) CAD: - known 3 vessel disease, s/p cardiac cath - scheduled for CABG on 11/16/18 Addendum - Attending - Attending Attestation Date/Time: 11/13/18 6598 I personally evaluated the patient and discussed the management with Dr. Antonio. I agree with the History, Examination, Assessment and Plan documented above with any addition or exceptions noted below. The patient is doing well. Will have cabg on Friday. Pt is helping administer his own insulin according to the sliding scale he follows.
[2018-11-13] MEDS: Doxycycline 100 MG CAP PO SCH ×2 (08:55→21:46)
[2018-11-13] MEDS: predniSONE 20 MG TAB PO SCH (08:55)
[2018-11-13] MEDS: Metoprolol Tartrate 100 MG TAB PO SCH ×2 (08:55→21:47)
[2018-11-13] MEDS: Amlodipine 10 MG TAB PO SCH (08:56)
[2018-11-13] MEDS: Acetaminophen/Codeine 30-300mg Tablet PO PRN (08:56)
[2018-11-13] MEDS: HumaLOG 300 UNITS/3 ML VIAL SC SCH ×3 (08:57→21:59)
[2018-11-13] MEDS: Famotidine 20 MG TAB PO SCH (08:57)
[2018-11-13] MEDS: Insulin Glargine 75 UNITS in Pre-Filled Syringe 1 EACH SC SCH ×2 (09:43→22:00)
[2018-11-13] MEDS: Lisinopril 2.5 MG TAB PO SCH (09:45)
--- NOTE | 2018-11-13 11:49 | PQF ---
CLINICAL DOCUMENTATION IMPROVEMENT CLARIFICATION FORM: ICD-10 Updated PLEASE DO AN ADDENDUM TO THE PROGRESS NOTE WITH ANY DOCUMENTATION UPDATES OR ADDITIONS AND CARRY THROUGH TO DC SUMMARY. THANK YOU. DATE: 11/13/18 ATTN : DR. ARMAS Please exercise your independent, professional judgment in responding to the clarification form. Clinical indicators are provided on the bottom of this form for your review Please check appropriate box(s): HEART FAILURE: A. TYPE: [ ] Systolic / HFrEF [ ] Diastolic / HFpEF [ x ] Combined Systolic / Diastolic B. ACUITY [ x ] Acute [ ] Acute on Chronic [ ] Chronic [ ] Other diagnosis [ ] Unable to determine In addition, please specify: Present on Admission (POA): [ x ] Yes [ ] No [ ] Unable to determine For continuity of documentation, please document condition throughout progress notes and discharge summary. Thank You. CLINICAL INDICATORS - SIGNS / SYMPTOMS / LABS PROGRESS NOTE 11/13: "NEW ONSET OF CONGESTIVE HEART FAILURE" ECHO REPORT: "EJECTION FRACTION IS VISUALLY ESTIMATED AT 20-25 %. BNP 400.1 RISKS: GRACE MORBID OBESITY HYPERTENSION TREATMENT: LASIX IV (ER) BIPAP DUONEBS (ER) NORVASC (1-PRESENT) LISINOPRIL (ORDERED 11/13) CARDIAC MONITORING CARDIOLOGY CONSULT ECHOCARDIOGRAM FLUID RESTRICTION MTDD
--- NOTE | 2018-11-13 15:12 | PDOC.CTH ---
Cardiology Progress Note - Subjective The pt seen and examined. No overnight events. No cardiac complaints. - Objective Vital Signs Temp Pulse Resp BP Pulse Ox 11/13/18 12:08 98.5 F 67 19 141/71 H 93 L 11/13/18 07:45 97.9 F 67 23 H 143/70 H 94 L 11/13/18 05:35 97 11/13/18 04:00 98.4 F 72 20 118/67 97 Weight 284 lb 11/12/18 11/13/18 11/14/18 06:59 06:59 06:59 Intake Total 2200 2440 Output Total 1425 3825 Balance 775 -1385 - Physical Examination General/Neuro: alert & oriented x3 Neck: no JVD present Lungs: CTA Heart: RRR Abdomen: soft Extremities: other: (No edema) - Telemetry Telemetry Rhythm: SR 70s - Labs Result Diagrams: 11/13/18 05:58 11/13/18 05:58 Troponin/CKMB CK-MB (CK-2) 3.3 ng/mL (0-6.6) 11/10/18 19:18 Troponin I 0.244 ng/mL (< 0.028) H 11/11/18 01:16 - Assessment/Plan 1. CAD with S/p LHC on 11/12/2018 with 30% stenosis in LMCA, 70% in Dig1, 70% in mid LAD, 100% in OM1, and 70% in prox. RCA - stable with Bblocker, statin and QUAN. Plan for CABG on Friday. Will start Heparin 500units SUBQ BID. Acute on chronic systolic HF with EF 20-25% - stable with no Diuretic and Bblocker and QUAN. Cont. to monitor 2. Acute hypoxic respiratory distress - stable 3. COPD ex - stable 4. HTN - stable with current med 5. GRACE - improving 6. DM type 2 - HgbA1c was 7.6. managed by PCP 7. Hyperlipidemia - on Statin 8. DENAE - on Home Cpap 9. Obesity - weight management education given to the pt. 10. Ex-smoker - smoking cessation education given to the pt 11. Crohns disease - MAR reviewed * Dr Tran's pt. Pt. seen and eval. by me. I agree with the A/P by the ACCOUNTS RECEIVABLE REPRESENTATIVE. He denies any complaints at this time. Chest clear. RRR. Plan for CABG next week.Add lovenox for now. Review of Systems - Review of Systems Constitutional: reports: no symptoms reported EENTM: reports: no symptoms reported Respiratory: reports: no symptoms reported Cardiac (ROS): reports: no symptoms reported ABD/GI: reports: no symptoms reported : reports: no symptoms reported Musculoskeletal: reports: no symptoms reported Skin: reports: no symptoms reported
[2018-11-13] MEDS: rOPINIRole HCl 1 MG TAB PO SCH (21:45)
[2018-11-13] MEDS: Tamsulosin HCl 0.4 MG CAP PO SCH (21:46)
[2018-11-13] MEDS: Atorvastatin Calcium 20 MG TAB PO SCH (21:46)
[2018-11-13] MEDS: Heparin 5,000 UNITS/ML VIAL SC SCH (21:47)
[2018-11-13] MEDS: traZODone HCl 50 MG TAB PO SCH (21:47)
--- NOTE | 2018-11-14 05:33 | PDOC.FM ---
- Subjective Subjective: Vamsi Herdnon seen at bedside this morning. He is doing well, has no complaints other than wanting to make sure he can watch the [employer] playoff game today. There were no acute events overnight. He has been sleeping well with CPAP. He is scheduled for CABG on Friday. Denies fever, chills, chest pain, dyspnea, n/v/ d. - Objective MAR Reviewed: Yes Vital Signs & Weight: Vital Signs (12 hours) Temp Pulse Resp BP Pulse Ox 11/14/18 03:20 96 11/14/18 03:09 98.1 F 64 14 124/60 94 L 11/13/18 20:40 98.6 F 69 19 147/70 H 94 L Weight Weight 128.82 kg I&O: 11/12/18 11/13/18 11/14/18 06:59 06:59 06:59 Intake Total 2200 2440 Output Total 1425 3825 Balance 775 -1385 Result Diagrams: 11/14/18 05:46 11/14/18 05:46 Phys Exam - Physical Examination Constitutional: NAD HEENT: moist MMs, sclera anicteric Neck: no JVD, supple, full ROM Respiratory: no wheezing, no rales, no rhonchi, clear to auscultation bilateral Cardiovascular: RRR, no significant murmur Gastrointestinal: soft, non-tender, no distention Musculoskeletal: no edema, pulses present Neurological: non-focal, normal sensation, moves all 4 limbs Psychiatric: normal affect, A&O x 3 Dx/Plan (1) Acute respiratory failure with hypoxia Code(s): J96.01 - ACUTE RESPIRATORY FAILURE WITH HYPOXIA Status: Resolved (2) COPD exacerbation Code(s): J44.1 - CHRONIC OBSTRUCTIVE PULMONARY DISEASE W (ACUTE) EXACERBATION Status: Resolved (3) New onset of congestive heart failure Code(s): I50.9 - HEART FAILURE, UNSPECIFIED Status: Acute (4) Acute kidney injury superimposed on CKD Code(s): N17.9 - ACUTE KIDNEY FAILURE, UNSPECIFIED; N18.9 - CHRONIC KIDNEY DISEASE, UNSPECIFIED Status: Acute (5) New onset left bundle branch block (LBBB) Code(s): I44.7 - LEFT BUNDLE-BRANCH BLOCK, UNSPECIFIED Status: Acute (6) DENAE (obstructive sleep apnea) Code(s): G47.33 - OBSTRUCTIVE SLEEP APNEA (ADULT) (PEDIATRIC) Status: Chronic (7) T2DM (type 2 diabetes mellitus) Status: Chronic (8) HTN (hypertension) Code(s): I10 - ESSENTIAL (PRIMARY) HYPERTENSION Status: Chronic Qualifiers: Hypertension type: essential hypertension Qualified Code(s): I10 - Essential (primary) hypertension (9) HLD (hyperlipidemia) Code(s): E78.5 - HYPERLIPIDEMIA, UNSPECIFIED Status: Chronic (10) BPH (benign prostatic hyperplasia) Code(s): N40.0 - BENIGN PROSTATIC HYPERPLASIA WITHOUT LOWER URINRY TRACT SYMP Status: Chronic (11) CAD (coronary artery disease) Code(s): I25.10 - ATHSCL HEART DISEASE OF [place] CORONARY ARTERY W/O ANG PCTRS Status: Acute - Plan Plan: 1) Acute hypoxic respiratory distress (Resolved): - likely 2/2 COPD exacerbation, with possible new onset CHF - 50 pk year history of smoking with known COPD, 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 - Day #4 of Prednisone 40 mg daily. PRN q4hr Duoneb, and doxycycline day #4 2) New onset CHF: - No record of CHF in chart. - Consulted cardiology, Dr. Tran, appreciate recs. - Continue home CCB and BB and ACEI - Mild improvement in kidney function - Echo showed depressed LV function, EF of 20-25% - Underwent Cardiac Cath this morning showed 3 vessel disease - CV Surg consulted, scheduled for CABG on Friday 3) COPD: - see #1 4) HTN: - home meds, PRNs available 5) HTN urgency: resolved - PRN available 6) DM2: - Home meds, hold metformin 7) DENAE: - CPAP HS 8) GRACE vs CKD: - avoiding nephrotoxic agents, repeat BMP tomorrow 9) BPH: - flomax, monitor urine output. 10) Crohns disease: - home meds. 11) Prolonged QTc Interval: - monitor on tele, avoid QT prolonging agents 12) Demand ischemia: - 3rd trop downtrended, highest trop was 0.308 13) CAD: - known 3 vessel disease, s/p cardiac cath - scheduled for CABG on 11/16/18 Addendum - Attending - Attending Attestation Date/Time: 11/14/18 0955 I personally evaluated the patient and discussed the management with Dr. Alvarez. I agree with the History, Examination, Assessment and Plan documented above with any addition or exceptions noted below. Patient doing well. Awaiting CABG Friday. Adjust HTN meds as needed in the interim. No concerns at this time.
[2018-11-14 06:49] LABS: #Basophils 0.1 thou/uL (0.0-0.2); #Eosinphils 0.1 thou/uL (0.0-0.7); #Lymphocytes 4.2 thou/uL (1.20-3.40); #Monocytes 1.3 thou/uL (0.11-0.59); #Neutrophils 7.8 thou/uL (1.40-6.50); %Basophils 0.9 % (0.0-1.0); %Eosinophils 0.9 % (0.0-10.0); %Lymphocytes 31.3 % (21.0-51.0); %Monocytes 9.4 % (0.0-10.0); %Neutrophils 57.5 % (42.0-75.0); Hemoglobin 13.7 g/dL (14.0-18.0); Mean Corpuscular HGB CONC 30.6 g/dL (32.0-36.0); Mean Corpuscular Hemoglobin 26.3 pg (27.0-31.0); Mean Corpuscular Volume 85.9 fL (78.0-98.0); Mean Platelet Volume 10.7 fL (7.4-10.4); Platelet Count 209 thou/uL (130-400); RBC Distribution Width 14.8 % (11.5-14.5); Red Blood Cell (RBC) Count 5.21 mill/uL (4.70-6.10); White Blood Cell (WBC) Count 13.5 thou/uL (4.8-10.8)
[2018-11-14 06:58] LABS: Anion Gap 12 mmol/L (10-20); BUN (Urea Nitrogen) 25 mg/dL (8.4-25.7); Calc. Creatinine Clearance 60 mL/min (70-130); Calcium 8.4 mg/dL (7.8-10.44); Carbon Dioxide 23 mmol/L (23-31); Chloride 106 mmol/L (98-107); Estimated GFR-MDRD 52; Glucose 129 mg/dL (83-110); Potassium 4.2 mmol/L (3.5-5.1); Sodium 137 mmol/L (136-145)
[2018-11-14] MEDS: Metoprolol Tartrate 100 MG TAB PO SCH ×2 (08:58→20:38)
[2018-11-14] MEDS: Famotidine 20 MG TAB PO SCH (08:58)
[2018-11-14] MEDS: Amlodipine 10 MG TAB PO SCH (08:58)
[2018-11-14] MEDS: Lisinopril 2.5 MG TAB PO SCH (08:58)
[2018-11-14] MEDS: Doxycycline 100 MG CAP PO SCH ×2 (08:58→20:38)
[2018-11-14] MEDS: Heparin 5,000 UNITS/ML VIAL SC SCH ×2 (08:59→20:38)
[2018-11-14] MEDS: HumaLOG 300 UNITS/3 ML VIAL SC SCH ×3 (08:59→20:37)
[2018-11-14] MEDS: Insulin Glargine 75 UNITS in Pre-Filled Syringe 1 EACH SC SCH ×2 (08:59→20:37)
[2018-11-14] MEDS: predniSONE 20 MG TAB PO SCH (09:05)
--- NOTE | 2018-11-14 12:09 | RAD ---
CHEST 2 VIEWS: Date: 11/14/18 HISTORY: CHF. COMPARISON: 11/10/18. FINDINGS: Cardiac silhouette and pulmonary vasculature are now unremarkable. Lungs remain slightly hyperinflate d. Mild left basilar atelectasis. Pleural thickening along the lateral margin of each hemithorax is s imilar in appearance to the prior study. No confluent air space consolidation, pneumothorax, or pleur al fluid. diet technician registered leads overlie the chest. IMPRESSION: Interval improvement and resolution of pulmonary vascular congestion. No new abnormalities are demons trated. POS: SONIDO
[2018-11-14] MEDS: rOPINIRole HCl 1 MG TAB PO SCH (20:38)
[2018-11-14] MEDS: Atorvastatin Calcium 20 MG TAB PO SCH (20:38)
[2018-11-14] MEDS: traZODone HCl 50 MG TAB PO SCH (20:38)
[2018-11-14] MEDS: Tamsulosin HCl 0.4 MG CAP PO SCH (20:38)
--- NOTE | 2018-11-14 21:17 | PDOC.CTH ---
Cardiology Progress Note - Subjective The pt seen and examined. No overnight events. No cardiac complaints. - Objective Vital Signs Temp Pulse Resp BP Pulse Ox 11/14/18 15:50 98.0 F 68 18 116/59 L 94 L 11/14/18 12:21 97.9 F 68 18 123/56 L 93 L Weight 288 lb 3.2 oz 11/13/18 11/14/18 11/15/18 06:59 06:59 06:59 Intake Total 2440 240 Output Total 3825 1175 Balance -1385 -935 - Physical Examination General/Neuro: alert & oriented x3 Neck: no JVD present Lungs: CTA Heart: RRR Abdomen: soft Extremities: other: - Telemetry Telemetry Rhythm: SR 70s - Labs Result Diagrams: 11/14/18 05:46 11/14/18 05:46 Troponin/CKMB CK-MB (CK-2) 3.3 ng/mL (0-6.6) 11/10/18 19:18 Troponin I 0.244 ng/mL (< 0.028) H 11/11/18 01:16 - Assessment/Plan 1. CAD with S/p LHC on 11/12/2018 with 30% stenosis in LMCA, 70% in Dig1, 70% in mid LAD, 100% in OM1, and 70% in prox. RCA - stable with Bblocker, statin, Heparin subq, and QUAN. Plan for CABG on Friday. 2. Acute on chronic systolic HF with EF 20-25% - stable with no Diuretic. On Bblocker and QUAN. Cont. to monitor 3. Acute hypoxic respiratory distress - stable 4. COPD ex - stable 5. HTN - stable with current med 6. GRACE - improving 7. DM type 2 - HgbA1c was 7.6. managed by PCP 8. Hyperlipidemia - on Statin 9. DENAE - on Home Cpap 10. Obesity - weight management education given to the pt. 11. Ex-smoker - smoking cessation education given to the pt 12. Crohns disease - MAR reviewed * Dr Tran's pt. Review of Systems - Review of Systems Constitutional: reports: no symptoms reported EENTM: reports: no symptoms reported Respiratory: reports: no symptoms reported Cardiac (ROS): reports: no symptoms reported ABD/GI: reports: no symptoms reported : reports: no symptoms reported Musculoskeletal: reports: no symptoms reported Skin: reports: no symptoms reported
--- NOTE | 2018-11-15 05:36 | PDOC.FM ---
- Subjective Subjective: Vamsi Herndon seen at bedside this morning. He is doing well, he has no complaints, and there were no acute events overnight. He states that he is ready to get his surgery done. Scheduled for CABG tomorrow morning. He denies any chest pain, fever, chills, dyspnea, n/v. - Objective MAR Reviewed: Yes Vital Signs & Weight: Vital Signs (12 hours) Temp Pulse Resp BP Pulse Ox 11/15/18 04:00 97.7 F 64 16 132/71 93 L 11/14/18 20:00 96 11/14/18 19:56 98.2 F 71 16 135/64 96 Weight Weight 136.35 kg I&O: 11/13/18 11/14/18 11/15/18 06:59 06:59 06:59 Intake Total 2440 240 Output Total 3825 1175 Balance -1385 -935 Result Diagrams: 11/14/18 05:46 11/15/18 06:01 Phys Exam - Physical Examination Constitutional: NAD HEENT: moist MMs, sclera anicteric Neck: supple, full ROM Respiratory: no wheezing, no rales, no rhonchi, clear to auscultation bilateral Cardiovascular: RRR, no significant murmur Gastrointestinal: soft, non-tender, no distention Musculoskeletal: no edema, pulses present Neurological: non-focal, normal sensation, moves all 4 limbs Psychiatric: normal affect, A&O x 3 Skin: no rash Dx/Plan (1) Acute respiratory failure with hypoxia Code(s): J96.01 - ACUTE RESPIRATORY FAILURE WITH HYPOXIA Status: Resolved (2) COPD exacerbation Code(s): J44.1 - CHRONIC OBSTRUCTIVE PULMONARY DISEASE W (ACUTE) EXACERBATION Status: Resolved (3) New onset of congestive heart failure Code(s): I50.9 - HEART FAILURE, UNSPECIFIED Status: Acute (4) Acute kidney injury superimposed on CKD Code(s): N17.9 - ACUTE KIDNEY FAILURE, UNSPECIFIED; N18.9 - CHRONIC KIDNEY DISEASE, UNSPECIFIED Status: Acute (5) New onset left bundle branch block (LBBB) Code(s): I44.7 - LEFT BUNDLE-BRANCH BLOCK, UNSPECIFIED Status: Acute (6) DENAE (obstructive sleep apnea) Code(s): G47.33 - OBSTRUCTIVE SLEEP APNEA (ADULT) (PEDIATRIC) Status: Chronic (7) T2DM (type 2 diabetes mellitus) Status: Chronic (8) HTN (hypertension) Code(s): I10 - ESSENTIAL (PRIMARY) HYPERTENSION Status: Chronic Qualifiers: Hypertension type: essential hypertension Qualified Code(s): I10 - Essential (primary) hypertension (9) HLD (hyperlipidemia) Code(s): E78.5 - HYPERLIPIDEMIA, UNSPECIFIED Status: Chronic (10) BPH (benign prostatic hyperplasia) Code(s): N40.0 - BENIGN PROSTATIC HYPERPLASIA WITHOUT LOWER URINRY TRACT SYMP Status: Chronic (11) CAD (coronary artery disease) Code(s): I25.10 - ATHSCL HEART DISEASE OF [place] CORONARY ARTERY W/O ANG PCTRS Status: Acute - Plan Plan: 1) Acute hypoxic respiratory distress (Resolved): - likely 2/2 COPD exacerbation, with possible new onset CHF - 50 pk year history of smoking with known COPD, 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 - Day #5 of Prednisone 40 mg daily. PRN q4hr Duoneb, and doxycycline day #5 2) New onset CHF: - No record of CHF in chart. - Consulted cardiology, Dr. Tran, appreciate recs. - Continue home CCB and BB and ACEI - Mild improvement in kidney function - Echo showed depressed LV function, EF of 20-25% - Underwent Cardiac Cath, showed 3 vessel disease - CV Surg consulted, scheduled for CABG on Friday 3) COPD: - see #1 4) HTN: - home meds, PRNs available 5) HTN urgency: resolved - PRN available 6) DM2: - Home meds, hold metformin 7) DENAE: - CPAP HS 8) GRACE vs CKD: improving - avoiding nephrotoxic agents 9) BPH: - flomax 10) Crohns disease: - home meds. 11) Prolonged QTc Interval: - monitor on tele, avoid QT prolonging agents 12) Demand ischemia: - 3rd trop downtrended, highest trop was 0.308 13) CAD: - known 3 vessel disease, s/p cardiac cath - scheduled for CABG on 11/16/18 Addendum - Attending - Attending Attestation Date/Time: 11/15/18 8418 I personally evaluated the patient and discussed the management with Dr. Alvarez. I agree with the History, Examination, Assessment and Plan documented above with any addition or exceptions noted below. Patient doing well and in good spirits this morning. Awaiting CABG tomorrow. No acute events and no changes to regimen today.
[2018-11-15 06:24] LABS: INR-International Normal Ratio 1.1; PTT 30.4 SEC (22.9-36.1); Prothrombin Time 14.3 SEC (12.0-14.7)
[2018-11-15 06:38] LABS: Anion Gap 13 mmol/L (10-20); BUN (Urea Nitrogen) 26 mg/dL (8.4-25.7); Calc. Creatinine Clearance 90 mL/min (70-130); Calcium 8.8 mg/dL (7.8-10.44); Carbon Dioxide 23 mmol/L (23-31); Chloride 106 mmol/L (98-107); Estimated GFR-MDRD 50; Glucose 105 mg/dL (83-110); Potassium 3.8 mmol/L (3.5-5.1); Sodium 138 mmol/L (136-145)
[2018-11-15] MEDS: Heparin 5,000 UNITS/ML VIAL SC SCH ×2 (09:09→20:46)
[2018-11-15] MEDS: Doxycycline 100 MG CAP PO SCH ×2 (09:10→20:46)
[2018-11-15] MEDS: Metoprolol Tartrate 100 MG TAB PO SCH ×2 (09:10→20:45)
[2018-11-15] MEDS: Lisinopril 2.5 MG TAB PO SCH (09:10)
[2018-11-15] MEDS: predniSONE 20 MG TAB PO SCH (09:10)
[2018-11-15] MEDS: Amlodipine 10 MG TAB PO SCH (09:10)
[2018-11-15] MEDS: Famotidine 20 MG TAB PO SCH (09:10)
[2018-11-15] MEDS: Insulin Glargine 75 UNITS in Pre-Filled Syringe 1 EACH SC SCH (09:11)
[2018-11-15] MEDS: HumaLOG 300 UNITS/3 ML VIAL SC SCH (13:50)
[2018-11-15] MEDS: NOVOLOG SC SCH ×2 (13:50→18:52)
[2018-11-15] MEDS ORDERED: NOVOLOG SC SCH (17:00)
--- NOTE | 2018-11-15 17:44 | PDOC.CTH ---
Cardiology Progress Note - Subjective The pt seen and examined. No overnight events. No cardiac complaints. - Objective Vital Signs Temp Pulse Resp BP Pulse Ox 11/15/18 15:51 98.0 F 70 18 140/67 94 L 11/15/18 12:00 98.1 F 68 18 121/68 94 L 11/15/18 09:15 95 11/15/18 07:35 97.9 F 76 18 140/72 95 Weight 290 lb 4.8 oz 11/14/18 11/15/18 11/16/18 06:59 06:59 06:59 Intake Total 240 Output Total 1175 Balance -935 - Physical Examination General/Neuro: alert & oriented x3 Neck: no JVD present Lungs: other: (diminished at bases) Heart: RRR Abdomen: soft Extremities: other: (No edema) - Telemetry Telemetry Rhythm: SR - Labs Result Diagrams: 11/14/18 05:46 11/16/18 05:16 Troponin/CKMB CK-MB (CK-2) 3.3 ng/mL (0-6.6) 11/10/18 19:18 Troponin I 0.244 ng/mL (< 0.028) H 11/11/18 01:16 - Assessment/Plan 1. CAD with S/p LHC on 11/12/2018 with 30% stenosis in LMCA, 70% in Dig1, 70% in mid LAD, 100% in OM1, and 70% in prox. RCA - stable with Bblocker, statin, Heparin subq, and QUAN. Plan for CABG on Friday. 2. Acute on chronic systolic HF with EF 20-25% - stable with no Diuretic. On Bblocker and QUAN. Cont. to monitor 3. Acute hypoxic respiratory distress - stable 4. COPD ex - stable 5. HTN - stable with current med 6. GRACE - improving 7. DM type 2 - HgbA1c was 7.6. managed by PCP 8. Hyperlipidemia - on Statin 9. DENAE - on Home Cpap 10. Obesity - weight management education given to the pt. 11. Ex-smoker - smoking cessation education given to the pt 12. Crohns disease - MAR reviewed Pt. seen and eval. by me. I agree with the A/P by the COMMUNITY DIETITIAN. Chest clear. RRR, No edema.Pt. waiting for CABG. * Dr Tran's pt. * Plan for CABG on Friday by Dr Tran. Review of Systems - Review of Systems Constitutional: reports: no symptoms reported EENTM: reports: no symptoms reported Respiratory: reports: no symptoms reported Cardiac (ROS): reports: no symptoms reported ABD/GI: reports: no symptoms reported : reports: no symptoms reported Musculoskeletal: reports: no symptoms reported
[2018-11-15] MEDS: traZODone HCl 50 MG TAB PO SCH (20:45)
[2018-11-15] MEDS: Tamsulosin HCl 0.4 MG CAP PO SCH (20:46)
[2018-11-15] MEDS: Atorvastatin Calcium 20 MG TAB PO SCH (20:46)
[2018-11-15] MEDS: rOPINIRole HCl 1 MG TAB PO SCH (20:48)
[2018-11-15] MEDS ORDERED: LEVEMIR SC SCH (21:00)
[2018-11-15] MEDS ORDERED: HumaLOG 300 UNITS/3 ML VIAL SC SCH (21:00)
[2018-11-16] MEDS: Lisinopril 2.5 MG TAB PO SCH (05:40)
[2018-11-16] MEDS: Metoprolol Tartrate 100 MG TAB PO SCH (05:41)
[2018-11-16 06:14] LABS: Anion Gap 14 mmol/L (10-20); BUN (Urea Nitrogen) 29 mg/dL (8.4-25.7); Calc. Creatinine Clearance 103 mL/min (70-130); Calcium 8.7 mg/dL (7.8-10.44); Carbon Dioxide 25 mmol/L (23-31); Chloride 105 mmol/L (98-107); Estimated GFR-MDRD 44; Glucose 179 mg/dL (83-110); Potassium 4.7 mmol/L (3.5-5.1); Sodium 139 mmol/L (136-145)
[2018-11-16] MEDS ORDERED: CABG-Vancomycin 1 GM in Premix Bag 1 BAG IVPB SCH (06:30)
[2018-11-16] MEDS ORDERED: Albumin 5% 500 ML ONE (06:42)
[2018-11-16] MEDS ORDERED: Midazolam HCl 2 mg/ml Syrup 5 ml UD Cup ONE (07:05)
[2018-11-16] MEDS ORDERED: Fentanyl 250 MCG/5 ML VIAL ONE (07:22)
[2018-11-16] MEDS ORDERED: Midazolam HCl 5 mg/5 ml Vial ONE (07:23)
[2018-11-16] MEDS ORDERED: Heparin 10,000 UNITS/1 ML VIAL 30,000 UNITS in Sodium Chloride 0.9% 1,000 ML FS SCH (08:15)
[2018-11-16] MEDS ORDERED: Ondansetron PF 4 MG/2 ML Vial IVP PRN (08:33)
[2018-11-16] MEDS ORDERED: Mag-Al 1200 mg/1200 mg/30 ML UDCUP PO PRN (08:33)
[2018-11-16] MEDS ORDERED: hydrALAZINE 20 MG/ML VIAL SLOW IVP PRN (08:33)
[2018-11-16] MEDS ORDERED: Nitroglycerin 50 MG/250 ML BOT 250 ML IVPB PRN (08:33)
[2018-11-16] MEDS ORDERED: Fentanyl 100 MCG/2 ML VIAL SLOW IVP PRN (08:33)
[2018-11-16] MEDS ORDERED: Bisacodyl 10 MG SUPP PR PRN (08:33)
[2018-11-16] MEDS ORDERED: Hetastarch 6% 500 ML 500 ML IVPB PRN (08:33)
[2018-11-16] MEDS ORDERED: Acetaminophen 325 MG TAB PO PRN (08:33)
[2018-11-16] MEDS ORDERED: Promethazine HCl 25 MG/ML VIAL IM PRN (08:33)
[2018-11-16] MEDS ORDERED: Bisacodyl 5 MG TAB PO PRN (08:33)
[2018-11-16] MEDS ORDERED: Post-Op Insulin Drip Protocol IVPB ONE (08:33)
[2018-11-16] MEDS ORDERED: Guaifenesin DM 100-10/5 ML UDCUP PO PRN (08:33)
[2018-11-16] MEDS ORDERED: Insulin Regular 300 UNITS/3 ML VIAL SC PRN (08:56)
[2018-11-16] MEDS ORDERED: Dextrose 50% Abboject 50 ML SYRINGE SLOW IVP PRN (08:56)
[2018-11-16] MEDS ORDERED: HUMULIN R 100 UNITS in Sodium Chloride 0.9% 100 ML IVPB SCH (08:56)
[2018-11-16] MEDS ORDERED: Dextrose 5% in Water 1,000 ML IV PRN (08:56)
[2018-11-16] MEDS ORDERED: Milrinone 10 MG/10 ML VIAL ONE (09:15)
[2018-11-16] MEDS ORDERED: PHENYLEPHRINE-NS 100 MCG/ML 10 ML SYRINGE ONE ×3 (09:31→13:40)
--- NOTE | 2018-11-16 09:34 | PDOC.FM ---
- Subjective Subjective: Vamsi Herndon seen early this morning at bedside prior being taken down to OR for CABG. He is doing well, in good spirits. States he is ready to get this operation over. He has no complaints and there were not acute events overnight. He denies any fever, chills, chest pain, dyspnea, n/v, abdominal pain. - Objective MAR Reviewed: Yes Vital Signs & Weight: Vital Signs (12 hours) Temp Pulse Resp BP BP Pulse Ox 11/16/18 05:40 70 145/73 H 11/16/18 04:00 98 F 70 14 145/73 H 95 Weight Weight 167.194 kg I&O: 11/15/18 11/16/18 11/17/18 06:59 06:59 06:59 Intake Total 400 Output Total 1475 Balance -1075 Result Diagrams: 11/17/18 05:37 11/17/18 05:37 Phys Exam - Physical Examination Constitutional: NAD HEENT: moist MMs, sclera anicteric Neck: no JVD, supple, full ROM Respiratory: no wheezing, no rales, no rhonchi, clear to auscultation bilateral Cardiovascular: RRR, no significant murmur Gastrointestinal: soft, non-tender, no distention Musculoskeletal: no edema, pulses present Neurological: non-focal, normal sensation, moves all 4 limbs Psychiatric: normal affect, A&O x 3 Skin: no rash Dx/Plan (1) Acute respiratory failure with hypoxia Code(s): J96.01 - ACUTE RESPIRATORY FAILURE WITH HYPOXIA Status: Resolved (2) COPD exacerbation Code(s): J44.1 - CHRONIC OBSTRUCTIVE PULMONARY DISEASE W (ACUTE) EXACERBATION Status: Resolved (3) New onset of congestive heart failure Code(s): I50.9 - HEART FAILURE, UNSPECIFIED Status: Acute (4) Acute kidney injury superimposed on CKD Code(s): N17.9 - ACUTE KIDNEY FAILURE, UNSPECIFIED; N18.9 - CHRONIC KIDNEY DISEASE, UNSPECIFIED Status: Acute (5) New onset left bundle branch block (LBBB) Code(s): I44.7 - LEFT BUNDLE-BRANCH BLOCK, UNSPECIFIED Status: Acute (6) DENAE (obstructive sleep apnea) Code(s): G47.33 - OBSTRUCTIVE SLEEP APNEA (ADULT) (PEDIATRIC) Status: Chronic (7) T2DM (type 2 diabetes mellitus) Status: Chronic (8) HTN (hypertension) Code(s): I10 - ESSENTIAL (PRIMARY) HYPERTENSION Status: Chronic Qualifiers: Hypertension type: essential hypertension Qualified Code(s): I10 - Essential (primary) hypertension (9) HLD (hyperlipidemia) Code(s): E78.5 - HYPERLIPIDEMIA, UNSPECIFIED Status: Chronic (10) BPH (benign prostatic hyperplasia) Code(s): N40.0 - BENIGN PROSTATIC HYPERPLASIA WITHOUT LOWER URINRY TRACT SYMP Status: Chronic (11) CAD (coronary artery disease) Code(s): I25.10 - ATHSCL HEART DISEASE OF [place] CORONARY ARTERY W/O ANG PCTRS Status: Acute - Plan Plan: 1) Acute hypoxic respiratory distress (Resolved): - likely 2/2 COPD exacerbation, with possible new onset CHF - 50 pk year history of smoking with known COPD, 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 - Completed full course of prednisone and is on Day #6 of Doxycycline - Duonebs prn 2) New onset CHF: - No record of CHF in chart. - Consulted cardiology, Dr. Tran, appreciate recs. - Continue home CCB and BB and ACEI - Echo showed depressed LV function, EF of 20-25% - Underwent Cardiac Cath, showed 3 vessel disease - CV Surg consulted, going down for CABG this morning 3) COPD: - see #1 4) HTN: - home meds, PRNs available 5) HTN urgency: resolved - PRN available 6) DM2: - Home meds, hold metformin 7) DENAE: - CPAP HS 8) GRACE vs CKD: improving - avoiding nephrotoxic agents - kidney function has stabilized 9) BPH: - flomax 10) Crohns disease: - home meds. 11) Prolonged QTc Interval: - monitor on tele, avoid QT prolonging agents 12) Demand ischemia: - 3rd trop downtrended, highest trop was 0.308 13) CAD: - known 3 vessel disease, s/p cardiac cath - scheduled for CABG on 11/16/18 Addendum - Attending - Attending Attestation Date/Time: 11/16/18 1750 I personally discussed the management with Dr. Alvarez I agree with the History, Examination, Assessment and Plan documented above with any addition or exceptions noted below. Will follow alongside CV surg while in ICU. s/p CABG. Delgado
[2018-11-16] MEDS ORDERED: Insulin Regular 300 UNITS/3 ML VIAL ONE (10:31)
[2018-11-16] MEDS: Sodium Chloride 0.9% 1,000 ML IV SCH ×2 (12:55→22:56)
[2018-11-16] MEDS: Norepinephrine 8 MG/0.9% NS 250 ML IVPB PRN ×2 (12:55→21:51)
[2018-11-16 12:56] LABS: Actual Bicarbonate (HCO3a) 21.1 mEq/L (22-28); Base Excess (BEa) -4.4 mEq/L (-2.0 to +3.0); CO2 Tension 40.2 mmHg (35.0-45.0); Calcium, Ionized 1.14 mmol/L (1.12-1.30); Carboxyhemoglobin (COHb) 1.9 gm% (0.0-3.0); Hemoglobin (Hb) 12.6 g/dL (14.0-18.0); Potassium - ABG Lab 3.87 mmol/L (3.70-5.30); pH, Arterial 7.34 (7.35-7.45)
[2018-11-16 12:57] LABS: O2 Tension (PaO2) 58.5 mmHg (> 70.0)
[2018-11-16 12:58] LABS: Puncture Site ALINE
[2018-11-16 12:59] LABS: Hemoglobin 11.8 g/dL (14.0-18.0); Mean Corpuscular HGB CONC 32.2 g/dL (32.0-36.0); Mean Corpuscular Hemoglobin 27.1 pg (27.0-31.0); Mean Corpuscular Volume 84.2 fL (78.0-98.0); Mean Platelet Volume 10.4 fL (7.4-10.4); Platelet Count 157 thou/uL (130-400); RBC Distribution Width 14.3 % (11.5-14.5); Red Blood Cell (RBC) Count 4.37 mill/uL (4.70-6.10); White Blood Cell (WBC) Count 38.4 thou/uL (4.8-10.8)
[2018-11-16 13:10] LABS: INR-International Normal Ratio 1.3; Prothrombin Time 16.1 SEC (12.0-14.7)
[2018-11-16 13:12] LABS: PTT 18.8 SEC (22.9-36.1)
[2018-11-16 13:17] LABS: Potassium 3.9 mmol/L (3.5-5.1)
[2018-11-16 13:18] LABS: Anion Gap 12 mmol/L (10-20); BUN (Urea Nitrogen) 28 mg/dL (8.4-25.7); Calc. Creatinine Clearance 103 mL/min (70-130); Calcium 7.8 mg/dL (7.8-10.44); Carbon Dioxide 19 mmol/L (23-31); Chloride 111 mmol/L (98-107); Estimated GFR-MDRD 44; Glucose 238 mg/dL (83-110); Potassium 3.9 mmol/L (3.5-5.1); Sodium 138 mmol/L (136-145)
[2018-11-16 13:22] LABS: Band 16 % (5-11); Lymphocytes 6 % (21-51); MDiff Complete? YES; Monocytes 8 % (0-10); Neutrophil 70 % (42-75); Platelet Morphology Comment Appears Adequate
[2018-11-16] MEDS: Famotidine/PF 20 mg/2ml Vial SLOW IVP SCH ×2 (13:26→19:55)
[2018-11-16] MEDS: Aspirin 325 MG TAB PO SCH (13:26)
[2018-11-16] MEDS ORDERED: PROPOFOL 200 MG/20 ML VIAL ONE (13:40)
[2018-11-16] MEDS ORDERED: Heparin 5,000 UNITS/ML VIAL ONE (13:40)
[2018-11-16] MEDS ORDERED: Lidocaine 2% PF 100 mg/5 ml Syringe ONE (13:40)
[2018-11-16] MEDS ORDERED: Heparin 30,000 units/30 ml VIAL ONE (13:40)
[2018-11-16] MEDS ORDERED: Cardioplegic Soln 1,000 ML BAG ONE (13:40)
[2018-11-16] MEDS ORDERED: Ondansetron PF 4 MG/2 ML Vial ONE (13:40)
[2018-11-16] MEDS ORDERED: DOPamine 400 MG/10 ML VIAL ONE (13:40)
[2018-11-16] MEDS ORDERED: Potassium Chloride 60 MEQ/30 ML VIAL ONE (13:40)
[2018-11-16] MEDS ORDERED: Calcium Chloride 1 GM/10 ML Abboject SYRINGE ONE (13:40)
[2018-11-16] MEDS ORDERED: Vecuronium 10 MG VIAL ONE (13:40)
[2018-11-16] MEDS ORDERED: Thrombin 5000 UNITS/5 ML VIAL ONE (13:40)
[2018-11-16] MEDS ORDERED: Aminocaproic Acid 5 GM/20 ML VIAL ONE (13:40)
[2018-11-16] MEDS ORDERED: Rocuronium Bromide 10 MG/ML (10ML VIAL) ONE (13:40)
[2018-11-16] MEDS ORDERED: Magnesium 5 GM/10 ML VIAL ONE (13:40)
[2018-11-16] MEDS ORDERED: Mannitol 12.5 GM/50 ML ONE (13:40)
[2018-11-16] MEDS ORDERED: Protamine Sulfate 250 MG/25 ML VIAL ONE (13:40)
[2018-11-16] MEDS ORDERED: Papaverine 60 MG/2 ML VIAL ONE (13:40)
[2018-11-16] MEDS ORDERED: Albumin 25% 25 GM/100 ML BOT ONE (13:40)
[2018-11-16] MEDS ORDERED: Sodium Bicarb 50 MEQ/50 ML Abboject 8.4% SYRINGE ONE (13:40)
[2018-11-16] MEDS: Potassium Chloride 20 MEQ/100 ML PREMIX BAG IVPB PRN ×2 (14:07→18:21)
--- NOTE | 2018-11-16 14:28 | RAD ---
CHEST 1 VIEW: HISTORY: Post CABG. COMPARISON: Radiograph 2 days prior. FINDINGS: The exam is limited due to rightward patient rotation. The central venous catheter tip is at the inf erior SVC. There is new ectasia of the aortic knob. Bilateral effusions. Endotracheal tube tip is above the clavicles. Mediastinal drains are present. IMPRESSION: New enlargement of soft tissue attenuation around the aortic knob. Close attention on followup imagi ng is recommended. The remainder of the findings are expected post coronary artery bypass graft. POS: CET
[2018-11-16] MEDS: DOPamine 400 MG/D5W 250 ML 250 ML IVPB SCH ×2 (15:35→22:26)
--- NOTE | 2018-11-16 17:23 | EKG ---
Test Reason : POST CABG Blood Pressure : / mmHG Vent. Rate : 094 BPM Atrial Rate : 094 BPM P-R Int : 164 ms QRS Dur : 100 ms QT Int : 394 ms P-R-T Axes : 070 037 088 degrees QTc Int : 492 ms Normal sinus rhythm Low voltage QRS Nonspecific ST and T wave abnormality Prolonged QT Abnormal ECG Confirmed by DR. Ez JIMÉNEZ (3) on 11/16/2018 5:23:16 PM Referred By: NELLIE Confirmed By:DR. Ez JIMÉNEZ
[2018-11-16 17:38] LABS: Actual Bicarbonate (HCO3a) 23.1 mEq/L (22-28); Base Excess (BEa) -3.4 mEq/L (-2.0 to +3.0); CO2 Tension 47.3 mmHg (35.0-45.0); Calcium, Ionized 1.13 mmol/L (1.12-1.30); Carboxyhemoglobin (COHb) 1.5 gm% (0.0-3.0); Potassium - ABG Lab 3.78 mmol/L (3.70-5.30); pH, Arterial 7.31 (7.35-7.45)
[2018-11-16 17:48] LABS: ALV-art Gradient 207.625 (0-20); O2 Tension (PaO2) 54.1 mmHg (> 70.0); Puncture Site ALINE
[2018-11-16] MEDS: Fentanyl 100 MCG/2 ML VIAL SLOW IVP PRN ×2 (17:54→19:55)
[2018-11-16] MEDS: HYDROcodone/Acetaminophen 5/325 mg Tablet PO PRN (19:00)
--- NOTE | 2018-11-16 21:38 | OP ---
DATE OF PROCEDURE: 11/16/2018 PROCEDURES PERFORMED: Coronary artery bypass grafting x4 with left internal mammary artery to the mid LAD and reverse greater saphenous vein graft from the aorta to the PDA, and sequential reverse greater saphenous vein graft from the aorta to the medial branch of the diagonal to the obtuse marginal branch; bilateral femoral arterial line placement with ultrasound guidance. PREOPERATIVE DIAGNOSIS: Coronary artery disease with ischemic cardiomyopathy. POSTOPERATIVE DIAGNOSIS: Coronary artery disease with ischemic cardiomyopathy. CONSTRUCTION PRODUCER: Gino. ANESTHESIA: General endotracheal anesthesia. INDICATIONS: The patient is a 73-year-old poorly-controlled diabetic man with significant obesity. He presented with worsening of his baseline failure symptoms. He was found to have significantly decreased LV function and 3-vessel coronary disease. He was diuresed and taken to the operating room for surgical revascularization. FINDINGS: Pump time 95 minutes. Cross-clamp time 47 minutes. Large heart, good quality. Left internal mammary artery utilized. Saphenous vein was of good quality, but it required harvest from both thighs because of large size of the heart. The distal location of targets and the vein becoming quite thin-walled in the distal thighs. The LAD was about 2.5 mm, intramyocardial vessel were grafted. The proximal trunk in the lateral branch of the diagonal were involved with hard plaque. The medial branch was of better quality and about 1.5 to 2 mm in diameter. The posterior lateral branch of the circumflex system was about 1.5 mm. The PDA proximally had heavy plaquing, but just beyond that where it was grafted. It was a good quality 2.5 mm vessel. The pericardium was closed. Problems with the preoperatively placed right radial arterial line prompted placement of a left femoral arterial line under ultrasonographic guidance toward the end of the case. The left femoral arterial line began to damp. There was significant disparity in pressure readings, prompting placement of a right femoral arterial line for pressure monitoring. NARRATIVE REPORT: After informed consent was obtained, the patient was taken to the operating room and placed in supine position on the operating table. Ultrasonographic mapping of his left greater saphenous vein and his left common femoral artery were performed. The patient's right upper chest was prepped and draped in sterile fashion. A triple lumen central line kit was used to place a right subclavian central line by the Seldinger technique. All 3 ports of the line were aspirated and flushed, and the line was secured. The patient's torso, groins, and lower extremities were prepped and draped in sterile fashion. Saphenous vein was exposed just above the left knee and was endoscopically immobilized from that point proximally up to the groin and for about a handbreadth below the knee. The endoscopic technique was converted to an open technique, however, because of difficulties with visualization and manipulation of the cautery component of the endoscopic instrument. Since the heart was very large and the vein in the distal thigh proved to be somewhat small and very thin walled, the vein was harvested by an open technique from the right thigh. Those harvest sites were closed in layers of subcutaneous and subcuticular Vicryl. Meanwhile, a median sternotomy was performed and the left internal mammary artery was mobilized as a skeletonized in-situ graft through an extrapleural exposure. One rent in the pleura along the hilar aspect where it was being mobilized, was repaired with 6-0 Prolene suture. The patient was heparinized. The mammary was ligated and divided distally. There was excellent flow through the mammary, which was instilled intraluminally with papaverine solution. The mammary bed was inspected for hemostasis. Shortly prior to heparinization, the waveforms on the right radial arterial line began to damp and they could not be aspirated or flushed, prompting placement of a left femoral arterial line. This was done with ultrasonographic guidance using a 5-Setswana sheath kit and Seldinger technique. The line was pulsatile. The wire and catheter were easily advanced, withdrew, and flushed. After inspecting the mammary bed for hemostasis, the LIBRADO retractor was replaced with a Clements retractor. Pericardium was opened and marsupialized. The aorta was palpated and was soft. A double concentric pursestring of 2-0 Ethibond was placed in the ascending aorta just beyond the pericardial reflection and a single pursestring was placed in the right atrial appendage. Aortic and venous cannulae were inserted and secured by their pursestrings. Cardiopulmonary bypass was instituted and the patient was systemically cooled. Heart was examined and the vessels to be bypassed were identified. A longitudinal slit was made in the pericardium anterior to the left phrenic nerve through which the mammary was passed. The aortic cross-clamp was applied and cardioplegia was administered through an aortic root needle when arrest have been achieved, attention was turned to the distal right coronary system. The PDA was exposed and opened proximally just beyond some heavy plaquing. Saphenous vein was anastomosed to it end-to-side with running Prolene suture and the anastomosis was tested by flushing cold cardioplegia down the graft. Attention was then turned to the circumflex system. The larger and longer branch of the posterior lateral marginal was opened and graft in a similar fashion. A 1 mm probe easily passed through the toe of the anastomosis. The lie of mammary and vein graft to the posterior lateral marginal were both tested and I had concerns about how the mammary would lie going from diagonal to midportion of the LAD, which looks like the portion that would be most amenable to exposure and grafting. The length of vein to the posterolateral marginal appeared to be adequate to allow for sequential grafting technique to the diagonal without kinking, causing obstruction of flow into the posterior lateral branch. The medial branch of the diagonal was opened and that vein graft to the posterior lateral marginal was anastomosed there [id number], orienting the anastomosis perpendicular to the axis of the coronary. The LAD was then opened, where it ran into an intramyocardial course in its midportion as distally, it appeared rather small. There was some concerns about adequacy of length of the mammary all the way out to the apex and the intervening segment was knotted all appreciable on the epicardial surface of the heart. The mammary was anastomosed to the mid LAD with running 7-0 Prolene and tacked to the epicardium. The aortic cross-clamp was replaced with a partial occluding clamp and aortotomy was then made in the ascending aorta with a scalpel and punch, incorporating the root needle site for one of those aortotomies. The PDA graft was brought along the right side of the heart and anastomosed to the more proximal aortotomy. The sequential vein graft to the diagonal and posterolateral marginal was brought along the left side of the heart and anastomosed to the more distal aortotomy. The partial occluding clamp was removed and the vein grafts were de-aired. The bulldogs were removed from them. The proximal anastomoses were marked with small hemoclips. The anastomoses were inspected for hemostasis. A posterior pericardial drain was brought out through a separate incision and secured with suture. Right atrial and right ventricular temporary epicardial pacing wires were placed. At about this point, the pressures on the left femoral arterial line were dropping and were much lower than estimates of aortic pressure upon palpation of the aorta and when transducing the side port on the aortic cannula, the pressures were considerably higher. Attempts at flushing the femoral line did not improve the situation and became apparent that that line was not going to be usable. The patient was weaned from cardiopulmonary bypass. Aortic and venous cannulae were removed and their pursestrings secured. A blood pressure cuff was placed below the drapes on the patient's right ankle to monitor pressure in that manner until the chest could be closed and attention returned to the groin. When hemostasis was adequate, an anterior mediastinal drain was placed and the pericardium was easily closed over with running Vicryl. Vancomycin paste and platelet rich GPS were applied to the cut surfaces of the sternum, which was then reapproximated with #7 stainless steel wires. The soft tissues were then irrigated and treated with platelet poor GPS. The fascia was closed over the wires with heavy Vicryl. Subcutaneous tissue was reapproximated with 2-0 Vicryl and the skin was closed with Vicryl subcuticular stitch. Sterile ultrasound was brought to the field to examine the right groin and a second 5-Setswana sheath kit was brought to the field. The right femoral artery was cannulated at a more shallow angle that it had been used to cannulate the left groin. The wire was easily passed through the needle and catheter easily passed over the wire. There was good pulsations from the catheter when the wire was removed. A stopcock was affixed to that catheter, which was secured to the skin with suture. Pressure lines were switched and flushed, and that line was dressed along with the patient's wounds. The patient was then transported to the intensive care unit in stable condition. Job ID: [id number]
[2018-11-17] MEDS: HYDROcodone/Acetaminophen 5/325 mg Tablet PO PRN ×5 (00:45→23:40)
[2018-11-17] MEDS: Fentanyl 100 MCG/2 ML VIAL SLOW IVP PRN ×2 (04:38→08:10)
[2018-11-17] MEDS: DOPamine 400 MG/D5W 250 ML 250 ML IVPB SCH (05:48)
[2018-11-17] MEDS: Sodium Chloride 0.9% 1,000 ML IV SCH ×2 (05:48→11:58)
[2018-11-17 05:54] LABS: #Basophils 0.1 thou/uL (0.0-0.2); #Lymphocytes 2.5 thou/uL (1.20-3.40); #Monocytes 1.7 thou/uL (0.11-0.59); #Neutrophils 8.9 thou/uL (1.40-6.50); %Basophils 0.5 % (0.0-1.0); %Eosinophils 0.1 % (0.0-10.0); %Lymphocytes 18.8 % (21.0-51.0); %Monocytes 12.7 % (0.0-10.0); %Neutrophils 67.9 % (42.0-75.0); Hemoglobin 10.7 g/dL (14.0-18.0); Mean Corpuscular HGB CONC 31.8 g/dL (32.0-36.0); Mean Corpuscular Hemoglobin 27.3 pg (27.0-31.0); Mean Corpuscular Volume 85.6 fL (78.0-98.0); Mean Platelet Volume 9.8 fL (7.4-10.4); Platelet Count 137 thou/uL (130-400); RBC Distribution Width 14.3 % (11.5-14.5); Red Blood Cell (RBC) Count 3.92 mill/uL (4.70-6.10)
[2018-11-17 06:10] LABS: Anion Gap 9 mmol/L (10-20); BUN (Urea Nitrogen) 27 mg/dL (8.4-25.7); Calc. Creatinine Clearance 97 mL/min (70-130); Calcium 7.5 mg/dL (7.8-10.44); Carbon Dioxide 23 mmol/L (23-31); Chloride 113 mmol/L (98-107); Estimated GFR-MDRD 41; Glucose 114 mg/dL (83-110); Potassium 4.7 mmol/L (3.5-5.1); Sodium 140 mmol/L (136-145)
--- NOTE | 2018-11-17 07:06 | PDOC.FM ---
- Subjective Subjective: Vamsi Herndon seen at bedside this morning. He has no complaints, there were no acute events. He is s/p CABG X4 vessel, POD #1. His post op pain has been well controlled. He is currently on dopamine and levophed ggt. He denies any fever, chills, dyspnea, n/v. Extubated on 11/16/18 - Objective MAR Reviewed: Yes Vital Signs & Weight: Vital Signs (12 hours) Temp Pulse Ox 11/17/18 04:00 98.8 F 11/16/18 20:00 98 Weight Weight 136.4 kg Most Recent Monitor Data Heart Rate from ECG 83 NIBP 113/77 NIBP BP-Mean 89 Respiration from ECG 19 SpO2 95 I&O: 11/16/18 11/17/18 11/18/18 06:59 06:59 06:59 Intake Total 400 2710.2 Output Total 1475 2590 Balance -1075 120.2 Result Diagrams: 11/17/18 05:37 11/17/18 05:37 Phys Exam - Physical Examination Constitutional: NAD HEENT: moist MMs, sclera anicteric Neck: supple, full ROM Respiratory: no wheezing, no rales, no rhonchi, clear to auscultation bilateral Cardiovascular: RRR, no significant murmur Gastrointestinal: soft, non-tender Musculoskeletal: no edema, pulses present Neurological: non-focal, moves all 4 limbs Psychiatric: normal affect, A&O x 3 Skin: no rash Dx/Plan (1) S/P CABG x 4 Status: Acute (2) Acute respiratory failure with hypoxia Code(s): J96.01 - ACUTE RESPIRATORY FAILURE WITH HYPOXIA Status: Resolved (3) COPD exacerbation Code(s): J44.1 - CHRONIC OBSTRUCTIVE PULMONARY DISEASE W (ACUTE) EXACERBATION Status: Resolved (4) New onset of congestive heart failure Code(s): I50.9 - HEART FAILURE, UNSPECIFIED Status: Acute (5) Acute kidney injury superimposed on CKD Code(s): N17.9 - ACUTE KIDNEY FAILURE, UNSPECIFIED; N18.9 - CHRONIC KIDNEY DISEASE, UNSPECIFIED Status: Acute (6) New onset left bundle branch block (LBBB) Code(s): I44.7 - LEFT BUNDLE-BRANCH BLOCK, UNSPECIFIED Status: Acute (7) DENAE (obstructive sleep apnea) Code(s): G47.33 - OBSTRUCTIVE SLEEP APNEA (ADULT) (PEDIATRIC) Status: Chronic (8) T2DM (type 2 diabetes mellitus) Status: Chronic (9) HTN (hypertension) Code(s): I10 - ESSENTIAL (PRIMARY) HYPERTENSION Status: Chronic Qualifiers: Hypertension type: essential hypertension Qualified Code(s): I10 - Essential (primary) hypertension (10) HLD (hyperlipidemia) Code(s): E78.5 - HYPERLIPIDEMIA, UNSPECIFIED Status: Chronic (11) BPH (benign prostatic hyperplasia) Code(s): N40.0 - BENIGN PROSTATIC HYPERPLASIA WITHOUT LOWER URINRY TRACT SYMP Status: Chronic (12) CAD (coronary artery disease) Code(s): I25.10 - ATHSCL HEART DISEASE OF [place] CORONARY ARTERY W/O ANG PCTRS Status: Acute - Plan Plan: 1) CAD S/p CABG X4 vessel: Post Op Day #1 - CABG X4 vessel on 11/16/18 - Post op management per CV Surg - Extubated on 11/16/18 - Currently on Dopamine, 7 mcg, and Levophed, 2.5 mcg, ggts 2) Acute hypoxic respiratory distress (Resolved): - likely 2/2 COPD exacerbation, with possible new onset CHF - 50 pk year history of smoking with known COPD, 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 - Completed full course of prednisone and is on Day #6 of Doxycycline - Duonebs prn 3) New onset CHF: - No record of CHF in chart. - Consulted cardiology, Dr. Tran, appreciate recs. - Continue home CCB and BB and ACEI - Echo showed depressed LV function, EF of 20-25% - Underwent Cardiac Cath, showed 3 vessel disease - CV Surg consulted, going down for CABG this morning 4) COPD: - see #1 5) HTN: - home meds, PRNs available 6) HTN urgency: resolved - PRN available 7) DM2: - Home meds, hold metformin 8) DENAE: - CPAP HS 9) GRACE vs CKD: improving - avoiding nephrotoxic agents - kidney function has stabilized 10) BPH: - flomax 11) Crohns disease: - home meds. 12) Prolonged QTc Interval: - monitor on tele, avoid QT prolonging agents Addendum - Attending - Attending Attestation Date/Time: 11/17/18 3672 I personally evaluated the patient and discussed the management with Dr. Alvarez. I agree with the History, Examination, Assessment and Plan documented above with any addition or exceptions noted below. Patient doing well POD1 from CABG. Continue post CABG mgmt per CV surgery team. Creatinine stable and mildly hyperchloremic that should improve as we can d/c his IVF with advancing diet. Continue therapy and HF meds.
[2018-11-17] MEDS: Aspirin 325 MG TAB PO SCH (08:30)
[2018-11-17] MEDS: Famotidine 20 MG TAB PO SCH ×2 (08:30→20:26)
--- NOTE | 2018-11-17 09:45 | RAD ---
PORTABLE SEMIUPRIGHT FRONTAL CHEST RADIOGRAPH: Date: 11-17-18 Comparison: 11-16-18 History: Evaluate chest following open heart surgery. FINDINGS: Midline sternotomy wires are present and unchanged. Heart and mediastinal contours are stable. There is increased density in the perihilar and suprahilar region on the left which may represent vascular prominence and/or volume loss. Continued follow up advised. Blunting of the costophrenic angle is not ed which may signify bilateral small pleural effusions and/or prominent extrapleural fat. Dense opaci ty in the left base suggests left lower lobe consolidation/collapse. Right vascular catheter in place . Two drainage catheters overlie the mediastinum. IMPRESSION: Post-operative changes as detailed above. Increased density in the left perihilar/suprahilar region, left lung base, and bilateral costophrenic angles as detailed above. POS: [facility]
[2018-11-17] MEDS ORDERED: Insulin Glargine 10 UNITS in Pre-Filled Syringe 1 EACH SC SCH (11:45)
[2018-11-17] MEDS ORDERED: Furosemide 40 MG/4 ML VIAL SLOW IVP SCH (12:00)
--- NOTE | 2018-11-17 12:19 | CON ---
DATE OF CONSULTATION: 11/17/2018 REASON FOR CONSULTATION: ICU stay. HISTORY OF PRESENT ILLNESS: The patient is a 73-year-old male, who underwent coronary artery bypass grafting surgery yesterday. He remains on dopamine and Levophed that is yet to be weaned. He has been extubated, but is wearing his nasal CPAP. He still has a mediastinal tubes in place. PAST MEDICAL HISTORY: 1. Chronic obstructive pulmonary disease. 2. Obstructive sleep apnea. 3. Coronary artery disease. 4. Crohn disease. 5. Hyperlipidemia. 6. Morbid obesity. 7. Hypertension. 8. Diabetes. PAST SURGICAL HISTORY: 1. Left total knee replacement. 2. Recent CABG yesterday. 3. Cholecystectomy. 4. Right kidney removal for benign growth. 5. Left femur surgery. MEDICATIONS: 1. Aspirin 325 mg daily. 2. Lipitor 20 mg daily. 3. Dopamine drip. 4. Pepcid 20 mg every 12 hours. 5. Fentanyl as needed. 6. Lasix 40 mg IV daily. 7. Lantus insulin. 8. Regular sliding scale insulin. 9. Levophed drip. 10. Promethazine. 11. Sodium chloride. ALLERGIES: SULFA DRUGS. SOCIAL HISTORY: Quit smoking over 40 years ago after smoking three packs per day. He gets most of his healthcare through the [employer] system. Occasionally drinks scotch. FAMILY MEDICAL HISTORY: Unremarkable. REVIEW OF SYSTEMS: A 12-point review of system is otherwise negative. PHYSICAL EXAMINATION: VITAL SIGNS: Temperature 97.5, pulse 80, blood pressure 122/60, and O2 saturation 97%. GENERAL: He is currently on CPAP, resting comfortably. He is on a dopamine drip at 2.5 mcg/minute and norepinephrine drip at 2.5 mcg/minute. HEENT: Remarkable for the nasal CPAP mask. NECK: No JVD. LUNGS: Clear anteriorly. CARDIAC: S1 and S2, regular. Mediastinal chest tubes noted. ABDOMEN: Morbidly obese, soft, and nontender. EXTREMITIES: No edema. LABORATORY DATA: Sodium 140, potassium 4.7, chloride 113, CO2 of 23, BUN 27, creatinine 1.6, and glucose 114. White blood cell count 13, hematocrit 33.6, and platelet count 137. Chest x-ray shows a tortuous trachea slightly wide of mediastinum post sternotomy wires in place. He has bilateral small effusions. ASSESSMENT: 1. Post coronary artery bypass graft. 2. Sleep apnea. 3. Diabetes mellitus. 4. History of other medical problems as listed above. PLAN: Wean off vasopressors, and send out of the floor once the vasopressors are off and his mediastinal tubes have been pulled. Continue CPAP as needed for care for sleep apnea. Agree with other interventions. Job ID: [id number]
[2018-11-17 13:47] LABS: Actual Bicarbonate (HCO3a) 21.2 mEq/L (22-28); Analyzer IN Cardio OR; Base Excess (BEa) -4.6 mEq/L (-2.0 to +3.0); CO2 Tension 42.2 mmHg (35.0-45.0); Calcium, Ionized 1.11 mmol/L (1.12-1.30); Carboxyhemoglobin (COHb) 0.1 gm% (0.0-3.0); Hemoglobin (Hb) 9.7 g/dL (14.0-18.0); O2 Tension (PaO2) 75.4 mmHg (> 70.0); Potassium - ABG Lab 3.57 mmol/L (3.70-5.30); pH, Arterial 7.32 (7.35-7.45)
[2018-11-17 13:47] LABS: Actual Bicarbonate (HCO3a) 22.1 mEq/L (22-28); Analyzer IN Cardio OR; Base Excess (BEa) -3.4 mEq/L (-2.0 to +3.0); CO2 Tension 41.5 mmHg (35.0-45.0); Carboxyhemoglobin (COHb) 0.3 gm% (0.0-3.0); O2 Tension (PaO2) 357.5 mmHg (> 70.0); pH, Arterial 7.34 (7.35-7.45)
[2018-11-17 13:48] LABS: Puncture Site ALINE
[2018-11-17 13:48] LABS: Puncture Site ALINE
[2018-11-17 13:49] LABS: Actual Bicarbonate (HCO3a) 19.5 mEq/L (22-28); Analyzer IN Cardio OR; Base Excess (BEa) -5.5 mEq/L (-2.0 to +3.0); CO2 Tension 36.3 mmHg (35.0-45.0); Calcium, Ionized 1.06 mmol/L (1.12-1.30); Carboxyhemoglobin (COHb) 0.5 gm% (0.0-3.0); Hemoglobin (Hb) 12.7 g/dL (14.0-18.0); O2 Tension (PaO2) 184.7 mmHg (> 70.0); Potassium - ABG Lab 4.08 mmol/L (3.70-5.30); pH, Arterial 7.35 (7.35-7.45)
[2018-11-17 13:49] LABS: Analyzer IN Cardio OR; CO2 Tension 32.2 mmHg (35.0-45.0); Calcium, Ionized 1.07 mmol/L (1.12-1.30); Carboxyhemoglobin (COHb) 0.5 gm% (0.0-3.0); Hemoglobin (Hb) 12.6 g/dL (14.0-18.0); pH, Arterial 7.39 (7.35-7.45)
[2018-11-17 13:49] LABS: Actual Bicarbonate (HCO3a) 19.7 mEq/L (22-28); Base Excess (BEa) -4.9 mEq/L (-2.0 to +3.0); Carboxyhemoglobin (COHb) 0.3 gm% (0.0-3.0); Potassium - ABG Lab 4.18 mmol/L (3.70-5.30); pH, Arterial 7.37 (7.35-7.45)
[2018-11-17 13:50] LABS: Puncture Site ALINE
[2018-11-17 13:50] LABS: Actual Bicarbonate (HCO3a) 20.3 mEq/L (22-28); Analyzer IN Cardio OR; Base Excess (BEa) -4.1 mEq/L (-2.0 to +3.0); CO2 Tension 34.3 mmHg (35.0-45.0); Calcium, Ionized 0.97 mmol/L (1.12-1.30); Carboxyhemoglobin (COHb) 0.3 gm% (0.0-3.0); Hemoglobin (Hb) 9.9 g/dL (14.0-18.0); O2 Tension (PaO2) 433.3 mmHg (> 70.0); Potassium - ABG Lab 4.35 mmol/L (3.70-5.30); pH, Arterial 7.39 (7.35-7.45)
[2018-11-17 13:50] LABS: Analyzer IN Cardio OR; Calcium, Ionized 0.97 mmol/L (1.12-1.30)
[2018-11-17 13:51] LABS: O2 Tension (PaO2) 527.6 mmHg (> 70.0)
[2018-11-17 13:51] LABS: Puncture Site ALINE
[2018-11-17 13:52] LABS: Puncture Site ALINE
[2018-11-17 13:52] LABS: Puncture Site ALINE
[2018-11-17] MEDS ORDERED: Artificial Tears 18 DROP/0.9 ML EA EYE PRN (18:17)
[2018-11-17] MEDS ORDERED: HumaLOG 300 UNITS/3 ML VIAL SC PRN (18:17)
[2018-11-17] MEDS ORDERED: diphenhydrAMINE 25 MG CAP PO PRN (18:17)
[2018-11-17] MEDS ORDERED: Nitroglycerin 0.4 MG TAB (25 Tab Bottle) SL PRN (18:17)
[2018-11-17] MEDS ORDERED: Bisacodyl 5 MG TAB PO PRN (18:17)
[2018-11-17] MEDS ORDERED: Dextrose 5% in Water 1,000 ML IV PRN (18:17)
[2018-11-17] MEDS ORDERED: Mag-Al 1200 mg/1200 mg/30 ML UDCUP PO PRN (18:17)
[2018-11-17] MEDS ORDERED: Guaifenesin DM 100-10/5 ML UDCUP PO PRN (18:17)
[2018-11-17] MEDS ORDERED: Dextrose 50% Abboject 50 ML SYRINGE SLOW IVP PRN (18:17)
[2018-11-17] MEDS ORDERED: Mineral Oil ENEMA PR PRN (18:17)
[2018-11-17] MEDS ORDERED: Zolpidem Tartrate 5 MG TAB PO PRN (18:17)
[2018-11-17] MEDS ORDERED: Bisacodyl 10 MG SUPP PR PRN (18:17)
[2018-11-17] MEDS: Atorvastatin Calcium 20 MG TAB PO SCH (20:26)
[2018-11-18] MEDS: HYDROcodone/Acetaminophen 5/325 mg Tablet PO PRN ×6 (04:51→21:45)
[2018-11-18 05:45] LABS: Anion Gap 11 mmol/L (10-20); BUN (Urea Nitrogen) 21 mg/dL (8.4-25.7); Calc. Creatinine Clearance 97 mL/min (70-130); Carbon Dioxide 23 mmol/L (23-31); Chloride 106 mmol/L (98-107); Estimated GFR-MDRD 52; Glucose 171 mg/dL (83-110); Potassium 4.3 mmol/L (3.5-5.1); Sodium 136 mmol/L (136-145)
--- NOTE | 2018-11-18 06:40 | PDOC.FM ---
- Subjective Subjective: Vamsi Herndon is seen at bedside this morning. He is doing well, he has no complaints and there were no acute events overnight. He states that his pain is well controlled. Chest tubes are still in place and have drained 250 cc since yesterday. Denies fever, chills, dyspnea, n/v. - Objective MAR Reviewed: Yes Vital Signs & Weight: Vital Signs (12 hours) Temp Pulse Resp BP Pulse Ox 11/18/18 04:00 98.1 F 87 18 161/74 H 94 L 11/17/18 23:45 96 11/17/18 23:44 98.7 F 76 16 167/78 H 96 11/17/18 20:00 98 11/17/18 19:00 98.2 F Weight Weight 137.438 kg Most Recent Monitor Data Heart Rate from ECG 98 NIBP 118/66 NIBP BP-Mean 83 Respiration from ECG 20 SpO2 95 I&O: 11/16/18 11/17/18 11/18/18 06:59 06:59 06:59 Intake Total 400 2710.2 2515 Output Total 1475 2590 3940 Balance -1075 120.2 -1425 Result Diagrams: 11/18/18 04:53 11/18/18 04:53 Phys Exam - Physical Examination Constitutional: NAD HEENT: moist MMs, sclera anicteric Neck: supple, full ROM Respiratory: no wheezing, no rales, no rhonchi, clear to auscultation bilateral Cardiovascular: RRR, no significant murmur Gastrointestinal: soft, non-tender Musculoskeletal: no edema, pulses present Neurological: moves all 4 limbs Psychiatric: normal affect, A&O x 3 Deviation from normal: dressing intact and dry, no surrounding erythema Dx/Plan (1) S/P CABG x 4 Status: Acute (2) Acute respiratory failure with hypoxia Code(s): J96.01 - ACUTE RESPIRATORY FAILURE WITH HYPOXIA Status: Resolved (3) COPD exacerbation Code(s): J44.1 - CHRONIC OBSTRUCTIVE PULMONARY DISEASE W (ACUTE) EXACERBATION Status: Resolved (4) New onset of congestive heart failure Code(s): I50.9 - HEART FAILURE, UNSPECIFIED Status: Acute (5) Acute kidney injury superimposed on CKD Code(s): N17.9 - ACUTE KIDNEY FAILURE, UNSPECIFIED; N18.9 - CHRONIC KIDNEY DISEASE, UNSPECIFIED Status: Acute (6) New onset left bundle branch block (LBBB) Code(s): I44.7 - LEFT BUNDLE-BRANCH BLOCK, UNSPECIFIED Status: Acute (7) DENAE (obstructive sleep apnea) Code(s): G47.33 - OBSTRUCTIVE SLEEP APNEA (ADULT) (PEDIATRIC) Status: Chronic (8) T2DM (type 2 diabetes mellitus) Status: Chronic (9) HTN (hypertension) Code(s): I10 - ESSENTIAL (PRIMARY) HYPERTENSION Status: Chronic Qualifiers: Hypertension type: essential hypertension Qualified Code(s): I10 - Essential (primary) hypertension (10) HLD (hyperlipidemia) Code(s): E78.5 - HYPERLIPIDEMIA, UNSPECIFIED Status: Chronic (11) BPH (benign prostatic hyperplasia) Code(s): N40.0 - BENIGN PROSTATIC HYPERPLASIA WITHOUT LOWER URINRY TRACT SYMP Status: Chronic (12) CAD (coronary artery disease) Code(s): I25.10 - ATHSCL HEART DISEASE OF [place] CORONARY ARTERY W/O ANG PCTRS Status: Acute - Plan Plan: 1) CAD S/p CABG X4 vessel: Post Op Day #2 - CABG X4 vessel on 11/16/18 - Post op management per CV Surg - Extubated on 11/16/18 - Off Dopamine and Levophed ggts - out of ICU 2) Acute hypoxic respiratory distress (Resolved): - likely 2/2 COPD exacerbation, with possible new onset CHF - 50 pk year history of smoking with known COPD, 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 - Completed full course of prednisone and complete course of doxycycline - Duonebs prn 3) New onset CHF: - No record of CHF in chart. - Consulted cardiology, Dr. Tran, appreciate recs. - Continue home CCB and BB and ACEI - Echo showed depressed LV function, EF of 20-25% - Underwent Cardiac Cath, showed 3 vessel disease - CV Surg consulted, going down for CABG this morning 4) COPD: - see #1 5) HTN: - home meds, PRNs available 6) HTN urgency: resolved - PRN available 7) DM2: - Home meds, hold metformin 8) DENAE: - CPAP HS 9) GRACE vs CKD: improving - avoiding nephrotoxic agents - kidney function has stabilized 10) BPH: - flomax 11) Crohns disease: - home meds. 12) Prolonged QTc Interval: - monitor on tele, avoid QT prolonging agents Addendum - Attending - Attending Attestation Date/Time: 11/18/18 1032 I personally evaluated the patient and discussed the management with Dr. Alvarez. I agree with the History, Examination, Assessment and Plan documented above with any addition or exceptions noted below. Patient doing well POD2 from CABG. BP could use some improved control but he is only being restarted on meds this morning. Will titrate as needed. Creatinine improving. Continue PT and await further recs per CV surg.
[2018-11-18 08:03] LABS: #Basophils 0.1 thou/uL (0.0-0.2); #Eosinphils 0.3 thou/uL (0.0-0.7); #Lymphocytes 2.5 thou/uL (1.20-3.40); #Monocytes 1.2 thou/uL (0.11-0.59); #Neutrophils 6.4 thou/uL (1.40-6.50); %Basophils 0.8 % (0.0-1.0); %Eosinophils 3.1 % (0.0-10.0); %Lymphocytes 24.1 % (21.0-51.0); %Monocytes 11.4 % (0.0-10.0); %Neutrophils 60.6 % (42.0-75.0); Hemoglobin 10.2 g/dL (14.0-18.0); MDiff Complete? YES; Mean Corpuscular HGB CONC 31.6 g/dL (32.0-36.0); Mean Corpuscular Volume 85.5 fL (78.0-98.0); Mean Platelet Volume 7.5 fL (7.4-10.4); Platelet Count 117 thou/uL (130-400); Platelet Morphology Comment Appears Decreased; Polychromasia SLIGHT = 2-3 cells (100X) (0-2/hpf); RBC Distribution Width 14.5 % (11.5-14.5); Red Blood Cell (RBC) Count 3.77 mill/uL (4.70-6.10); White Blood Cell (WBC) Count 10.6 thou/uL (4.8-10.8)
--- NOTE | 2018-11-18 08:14 | RAD ---
PORTABLE CHEST: History: Post op sternotomy follow up. Comparison: 11-17-18 FINDINGS: There is atelectasis and/or infiltrate in the left lung base. Right lung is clear. Heart is mildly en larged with post op sternotomy change. Central line appears in adequate position. IMPRESSION: Left basilar atelectasis and/or infiltrate. POS: [facility]
[2018-11-18] MEDS: Carvedilol 3.125 MG TAB PO SCH ×2 (08:44→17:56)
[2018-11-18] MEDS: Famotidine 20 MG TAB PO SCH ×2 (08:45→21:44)
[2018-11-18] MEDS: Aspirin 325 mg Enteric Coated Tablet PO SCH (08:45)
[2018-11-18] MEDS: HumaLOG 300 UNITS/3 ML VIAL SC PRN ×2 (12:29→17:05)
[2018-11-18] MEDS ORDERED: Carvedilol 6.25 MG TAB PO SCH ×2 (21:00)
[2018-11-18] MEDS: Atorvastatin Calcium 20 MG TAB PO SCH (21:43)
[2018-11-19] MEDS: HYDROcodone/Acetaminophen 5/325 mg Tablet PO PRN ×5 (03:28→20:46)
[2018-11-19 05:46] LABS: #Basophils 0.1 thou/uL (0.0-0.2); #Eosinphils 0.3 thou/uL (0.0-0.7); #Lymphocytes 2.4 thou/uL (1.20-3.40); #Neutrophils 5.5 thou/uL (1.40-6.50); %Basophils 0.8 % (0.0-1.0); %Eosinophils 3.2 % (0.0-10.0); %Lymphocytes 26.3 % (21.0-51.0); %Monocytes 10.4 % (0.0-10.0); %Neutrophils 59.3 % (42.0-75.0); Hemoglobin 10.3 g/dL (14.0-18.0); Mean Corpuscular HGB CONC 31.4 g/dL (32.0-36.0); Mean Corpuscular Hemoglobin 27.2 pg (27.0-31.0); Mean Corpuscular Volume 86.7 fL (78.0-98.0); Mean Platelet Volume 10.3 fL (7.4-10.4); Platelet Count 134 thou/uL (130-400); RBC Distribution Width 14.5 % (11.5-14.5); Red Blood Cell (RBC) Count 3.78 mill/uL (4.70-6.10); White Blood Cell (WBC) Count 9.2 thou/uL (4.8-10.8)
--- NOTE | 2018-11-19 06:07 | PDOC.FM ---
- Subjective Subjective: Vamsi Herndon seen at bedside this morning. He is doing well. He has no complaints and no acute events overnight. He has had about 200 cc of output from chest tubes since yesterday. He states his pain is well controlled, he has been using his incentive spirometer. He denies fever, chills, dyspnea, n/v. - Objective MAR Reviewed: Yes Vital Signs & Weight: Vital Signs (12 hours) Temp Pulse Resp BP Pulse Ox 11/19/18 03:13 99.8 F H 81 20 144/70 H 95 11/18/18 20:00 98.6 F 90 20 157/86 H 95 Weight Weight 134.859 kg Most Recent Monitor Data Heart Rate from ECG 98 NIBP 118/66 NIBP BP-Mean 83 Respiration from ECG 20 SpO2 95 I&O: 11/17/18 11/18/18 11/19/18 06:59 06:59 06:59 Intake Total 2710.2 2515 Output Total 2590 4140 525 Balance 120.2 -1625 -525 Result Diagrams: 11/19/18 04:22 11/19/18 04:21 Phys Exam - Physical Examination Constitutional: NAD HEENT: moist MMs, sclera anicteric Neck: supple, full ROM Respiratory: no wheezing, no rales, no rhonchi, clear to auscultation bilateral Cardiovascular: RRR, no significant murmur Gastrointestinal: soft, non-tender Musculoskeletal: no edema, pulses present Neurological: non-focal, normal sensation, moves all 4 limbs Psychiatric: normal affect, A&O x 3 Dx/Plan (1) S/P CABG x 4 Status: Acute (2) Acute respiratory failure with hypoxia Code(s): J96.01 - ACUTE RESPIRATORY FAILURE WITH HYPOXIA Status: Resolved (3) COPD exacerbation Code(s): J44.1 - CHRONIC OBSTRUCTIVE PULMONARY DISEASE W (ACUTE) EXACERBATION Status: Resolved (4) New onset of congestive heart failure Code(s): I50.9 - HEART FAILURE, UNSPECIFIED Status: Acute (5) Acute kidney injury superimposed on CKD Code(s): N17.9 - ACUTE KIDNEY FAILURE, UNSPECIFIED; N18.9 - CHRONIC KIDNEY DISEASE, UNSPECIFIED Status: Acute (6) New onset left bundle branch block (LBBB) Code(s): I44.7 - LEFT BUNDLE-BRANCH BLOCK, UNSPECIFIED Status: Acute (7) DENAE (obstructive sleep apnea) Code(s): G47.33 - OBSTRUCTIVE SLEEP APNEA (ADULT) (PEDIATRIC) Status: Chronic (8) T2DM (type 2 diabetes mellitus) Status: Chronic (9) HTN (hypertension) Code(s): I10 - ESSENTIAL (PRIMARY) HYPERTENSION Status: Chronic Qualifiers: Hypertension type: essential hypertension Qualified Code(s): I10 - Essential (primary) hypertension (10) HLD (hyperlipidemia) Code(s): E78.5 - HYPERLIPIDEMIA, UNSPECIFIED Status: Chronic (11) BPH (benign prostatic hyperplasia) Code(s): N40.0 - BENIGN PROSTATIC HYPERPLASIA WITHOUT LOWER URINRY TRACT SYMP Status: Chronic (12) CAD (coronary artery disease) Code(s): I25.10 - ATHSCL HEART DISEASE OF [place] CORONARY ARTERY W/O ANG PCTRS Status: Acute - Plan Plan: 1) CAD S/p CABG X4 vessel: Post Op Day #3 - CABG X4 vessel on 11/16/18 - Post op management per CV Surg - Extubated on 11/16/18 - Off Dopamine and Levophed ggts - out of ICU 2) Acute hypoxic respiratory distress (Resolved): - likely 2/2 COPD exacerbation, with possible new onset CHF - 50 pk year history of smoking with known COPD, 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 - Completed full course of prednisone and complete course of doxycycline - Duonebs prn 3) New onset CHF: - No record of CHF in chart. - Consulted cardiology, Dr. Tran, appreciate recs. - Continue home CCB and BB and ACEI - Echo showed depressed LV function, EF of 20-25% - Underwent Cardiac Cath, showed 3 vessel disease - CABG on 11/16 4) COPD: - see #1 5) HTN: - home meds, PRNs available 6) HTN urgency: resolved - PRN available 7) DM2: - Home meds, hold metformin 8) DENAE: - CPAP HS 9) GRACE vs CKD: improving - avoiding nephrotoxic agents - kidney function has stabilized 10) BPH: - flomax 11) Crohns disease: - home meds. 12) Prolonged QTc Interval: - monitor on tele, avoid QT prolonging agents Addendum - Attending - Attending Attestation Date/Time: 11/19/18 1090 I personally evaluated the patient and discussed the management with Dr. Alvarez. I agree with the History, Examination, Assessment and Plan documented above with any addition or exceptions noted below. Patient doing well. Continue post CABG care and therapy. BP meds increased and improved.
[2018-11-19 06:32] LABS: Anion Gap 10 mmol/L (10-20); BUN (Urea Nitrogen) 17 mg/dL (8.4-25.7); Calc. Creatinine Clearance 99 mL/min (70-130); Calcium 8.4 mg/dL (7.8-10.44); Carbon Dioxide 27 mmol/L (23-31); Chloride 105 mmol/L (98-107); Estimated GFR-MDRD 54; Glucose 221 mg/dL (83-110); Potassium 4.1 mmol/L (3.5-5.1); Sodium 138 mmol/L (136-145)
--- NOTE | 2018-11-19 07:58 | RAD ---
CHEST 1 VIEW: INDICATION: History of CABG. COMPARISON: Prior exam dated 11/18/2018. FINDINGS: Small left pleural effusion with basilar atelectasis persists. The right subclavian central venous c atheter is unchanged. Midline sternotomy change is similar-appearing. There is a small left pneumot horax that is slightly smaller than on comparison dated 11/18/2018. Right subclavian central venous ca theter is unchanged. Osseous structures are similar-appearing. IMPRESSION: Decreasing size of small left hydropneumothorax. There is persistent mild left basilar atelectasis. Right subclavian central venous catheter is unchanged. Midline sternotomy changes are similar-appea ring. The right lung is clear. Findings were called to Darlene Amezquita RN, caring for this patient, at 7:46 a.m. on 11/19/2018. CODE CR POS: [facility]
[2018-11-19] MEDS: Carvedilol 6.25 MG TAB PO SCH ×2 (08:33→16:46)
[2018-11-19] MEDS: Aspirin 325 mg Enteric Coated Tablet PO SCH (08:34)
[2018-11-19] MEDS: Famotidine 20 MG TAB PO SCH ×2 (08:34→21:04)
[2018-11-19] MEDS: HumaLOG 300 UNITS/3 ML VIAL SC PRN ×3 (09:36→16:47)
[2018-11-19] MEDS: Atorvastatin Calcium 20 MG TAB PO SCH (20:46)
[2018-11-19] MEDS: hydrALAZINE 25 MG TAB PO SCH (21:04)
[2018-11-20] MEDS: HYDROcodone/Acetaminophen 5/325 mg Tablet PO PRN ×5 (00:44→21:14)
--- NOTE | 2018-11-20 06:19 | PDOC.FM ---
- Subjective Subjective: Vamsi Herndon seen at bedside this morning. He is doing well, he has no complaints and there were no acute events overnight. He no longer has any tubes , he is using incentive spirometry, and ambulating without complication. At discharge, he plans to do rehab at his sister's house. He is going to be set up with a [facility]. Denies fever, chills, chest pain, dyspnea, n/v. - Objective MAR Reviewed: Yes Vital Signs & Weight: Vital Signs (12 hours) Temp Pulse Resp BP Pulse Ox 11/20/18 03:12 99.4 F 80 14 169/76 H 96 11/19/18 21:04 72 11/19/18 19:23 99.1 F 78 18 165/76 H 95 Weight Weight 131.74 kg Most Recent Monitor Data Heart Rate from ECG 98 NIBP 118/66 NIBP BP-Mean 83 Respiration from ECG 20 SpO2 95 I&O: 11/18/18 11/19/18 11/20/18 06:59 06:59 06:59 Intake Total 2515 1550 Output Total 4140 525 1800 Balance -1625 -525 -250 Result Diagrams: 11/20/18 05:54 11/20/18 05:54 Phys Exam - Physical Examination Constitutional: NAD HEENT: moist MMs, sclera anicteric Neck: supple, full ROM Respiratory: no wheezing, no rales, no rhonchi, clear to auscultation bilateral Cardiovascular: RRR, no significant murmur Gastrointestinal: soft, non-tender Musculoskeletal: no edema, pulses present Neurological: moves all 4 limbs Psychiatric: normal affect, A&O x 3 Dx/Plan (1) S/P CABG x 4 Status: Acute (2) Acute respiratory failure with hypoxia Code(s): J96.01 - ACUTE RESPIRATORY FAILURE WITH HYPOXIA Status: Resolved (3) COPD exacerbation Code(s): J44.1 - CHRONIC OBSTRUCTIVE PULMONARY DISEASE W (ACUTE) EXACERBATION Status: Resolved (4) New onset of congestive heart failure Code(s): I50.9 - HEART FAILURE, UNSPECIFIED Status: Acute (5) Acute kidney injury superimposed on CKD Code(s): N17.9 - ACUTE KIDNEY FAILURE, UNSPECIFIED; N18.9 - CHRONIC KIDNEY DISEASE, UNSPECIFIED Status: Acute (6) New onset left bundle branch block (LBBB) Code(s): I44.7 - LEFT BUNDLE-BRANCH BLOCK, UNSPECIFIED Status: Acute (7) DENAE (obstructive sleep apnea) Code(s): G47.33 - OBSTRUCTIVE SLEEP APNEA (ADULT) (PEDIATRIC) Status: Chronic (8) T2DM (type 2 diabetes mellitus) Status: Chronic (9) HTN (hypertension) Code(s): I10 - ESSENTIAL (PRIMARY) HYPERTENSION Status: Chronic Qualifiers: Hypertension type: essential hypertension Qualified Code(s): I10 - Essential (primary) hypertension (10) HLD (hyperlipidemia) Code(s): E78.5 - HYPERLIPIDEMIA, UNSPECIFIED Status: Chronic (11) BPH (benign prostatic hyperplasia) Code(s): N40.0 - BENIGN PROSTATIC HYPERPLASIA WITHOUT LOWER URINRY TRACT SYMP Status: Chronic (12) CAD (coronary artery disease) Code(s): I25.10 - ATHSCL HEART DISEASE OF [place] CORONARY ARTERY W/O ANG PCTRS Status: Acute - Plan Plan: 1) CAD S/p CABG X4 vessel: Post Op Day #3 - CABG X4 vessel on 11/16/18 - Post op management per CV Surg - Extubated on 11/16/18 - Off Dopamine and Levophed ggts - out of ICU 2) Acute hypoxic respiratory distress (Resolved): - likely 2/2 COPD exacerbation, with possible new onset CHF - 50 pk year history of smoking with known COPD, 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 - Completed full course of prednisone and complete course of doxycycline - Duonebs prn 3) New onset CHF: - No record of CHF in chart. - Consulted cardiology, Dr. Tran, appreciate recs. - Continue home meds - Echo showed depressed LV function, EF of 20-25% - Underwent Cardiac Cath, showed 3 vessel disease - CABG on 11/16 - will be set up with [facility] prior to D/c 4) COPD: - see #1 5) HTN: - home meds, PRNs available - started hydralazine over lisinopril on 11/19, per Dr. Horton 6) HTN urgency: resolved - PRN available 7) DM2: - Home meds, hold metformin 8) DENAE: - CPAP HS 9) GRACE vs CKD: resolved - avoiding nephrotoxic agents - kidney function has stabilized 10) BPH: - flomax 11) Crohns disease: - home meds. 12) Prolonged QTc Interval: - monitor on tele, avoid QT prolonging agents Addendum - Attending - Attending Attestation Date/Time: 11/20/18 1006 I personally evaluated the patient and discussed the management with Dr. Alvarez. I agree with the History, Examination, Assessment and Plan documented above with any addition or exceptions noted below. Patient doing well. Continues s/p CABG care and BP mgmt. Further recs per CV surgery and anticipate that discharge is nearing.
[2018-11-20 06:30] LABS: #Basophils 0.1 thou/uL (0.0-0.2); #Eosinphils 0.3 thou/uL (0.0-0.7); #Lymphocytes 2.8 thou/uL (1.20-3.40); #Monocytes 1.1 thou/uL (0.11-0.59); #Neutrophils 5.7 thou/uL (1.40-6.50); %Basophils 0.9 % (0.0-1.0); %Eosinophils 3.3 % (0.0-10.0); %Monocytes 11.2 % (0.0-10.0); %Neutrophils 56.6 % (42.0-75.0); Hemoglobin 10.4 g/dL (14.0-18.0); Mean Corpuscular Hemoglobin 27.3 pg (27.0-31.0); Mean Corpuscular Volume 85.2 fL (78.0-98.0); Mean Platelet Volume 10.2 fL (7.4-10.4); Platelet Count 170 thou/uL (130-400); RBC Distribution Width 14.4 % (11.5-14.5); Red Blood Cell (RBC) Count 3.82 mill/uL (4.70-6.10); White Blood Cell (WBC) Count 10.1 thou/uL (4.8-10.8)
[2018-11-20 06:47] LABS: Anion Gap 12 mmol/L (10-20); BUN (Urea Nitrogen) 15 mg/dL (8.4-25.7); Calc. Creatinine Clearance 110 mL/min (70-130); Calcium 8.5 mg/dL (7.8-10.44); Carbon Dioxide 26 mmol/L (23-31); Chloride 105 mmol/L (98-107); Estimated GFR-MDRD 63; Glucose 190 mg/dL (83-110); Potassium 4.1 mmol/L (3.5-5.1); Sodium 139 mmol/L (136-145)
[2018-11-20] MEDS: Aspirin 325 mg Enteric Coated Tablet PO SCH (08:13)
[2018-11-20] MEDS: Carvedilol 6.25 MG TAB PO SCH ×3 (08:13→21:22)
[2018-11-20] MEDS: Famotidine 20 MG TAB PO SCH ×2 (08:14→21:23)
[2018-11-20] MEDS: hydrALAZINE 25 MG TAB PO SCH (08:14)
[2018-11-20] MEDS ORDERED: Lisinopril 5 MG TAB PO SCH ×2 (09:00→21:00)
--- NOTE | 2018-11-20 11:28 | RAD ---
PORTABLE CHEST: Date: 11-20-18 Provided Clinical History: Shortness of breath. FINDINGS: Comparison 11-19-18. Cardiac and mediastinal silhouette is unchanged in appearance. Median sternotomy changes are seen. Ri ght subclavian central line is again seen with tip projecting in the region of the cavoatrial junctio n. Left basilar pleural and parenchymal opacity is redemonstrated. Asymmetric lucency at the left farrah g apex is demonstrated with less well visualized pleural line likely reflecting persistent small left apical pneumothorax. IMPRESSION: 1. Stable radiographic appearance of the chest. POS: [facility]
[2018-11-20] MEDS: HumaLOG 300 UNITS/3 ML VIAL SC PRN (12:01)
--- NOTE | 2018-11-20 14:13 | EKG ---
Test Reason : SOB Blood Pressure : / mmHG Vent. Rate : 088 BPM Atrial Rate : 088 BPM P-R Int : 202 ms QRS Dur : 162 ms QT Int : 442 ms P-R-T Axes : 043 030 094 degrees QTc Int : 534 ms Sinus rhythm with occasional , and consecutive Premature ventricular complexes and Fusion complexes Left bundle branch block Abnormal ECG Confirmed by GERHARD SHARPE D.O. ([id number]), department editor YADIRA CURRY ([id number]) on 11/20/2018 2:13:25 PM Referred By: WM Confirmed By:GERHARD SHARPE D.O.
[2018-11-20] MEDS ORDERED: Furosemide 40 MG/4 ML VIAL SLOW IVP SCH (14:45)
[2018-11-20] MEDS: ALPRAZolam 0.25 MG TAB PO PRN (16:15)
--- NOTE | 2018-11-20 17:49 | PDOC.EVN ---
Event Note - Event Note Event Note: Note from visit with patient this afternoon. He feels that he could better manage his insulin than the nurses and with the sliding scale. Says he takes 100 units BID levemir and 30-70 units mealtime insulin. Says that no matter what he is given in the hospital he will manage his insulin as he wants when he gets home. Will start NPH to correlate with SSI requirement over past 24 hours.
[2018-11-20] MEDS: Atorvastatin Calcium 20 MG TAB PO SCH (21:23)
[2018-11-20] MEDS: NPH, Human Insulin Isophane 300 UNIT/3 ML VIAL SC SCH (21:31)
--- NOTE | 2018-11-21 06:41 | PDOC.FM ---
- Subjective Subjective: Patient doing very well this AM. No significant overnight events. Patient has no complaints this AM. Denies chest pain, shortness of breath, N/V. - Objective MAR Reviewed: Yes Vital Signs & Weight: Vital Signs (12 hours) Temp Pulse Resp BP BP Pulse Ox 11/21/18 03:52 98.2 F 70 16 131/63 96 11/20/18 23:48 98.0 F 76 16 147/72 H 96 11/20/18 21:23 82 165/66 H 11/20/18 21:22 165/66 H 11/20/18 20:30 98.8 F 82 19 165/66 H 96 Weight Weight 129.41 kg Most Recent Monitor Data Heart Rate from ECG 98 NIBP 118/66 NIBP BP-Mean 83 Respiration from ECG 20 SpO2 95 I&O: 11/19/18 11/20/18 11/21/18 06:59 06:59 06:59 Intake Total 1550 1800 Output Total 525 1800 3800 Balance -525 -410 -0696 Result Diagrams: 11/21/18 06:05 11/21/18 06:05 EKG Reviewed by me: Yes Radiology Reviewed by me: Yes Phys Exam - Physical Examination Constitutional: NAD HEENT: moist MMs Neck: supple Respiratory: clear to auscultation bilateral Cardiovascular: RRR, no significant murmur Gastrointestinal: soft, non-tender Musculoskeletal: no edema, pulses present Neurological: non-focal Psychiatric: normal affect, A&O x 3 Skin: cap refill <2 seconds Deviation from normal: sternotomy site clean, dry, intact Dx/Plan (1) GRACE (acute kidney injury) Code(s): N17.9 - ACUTE KIDNEY FAILURE, UNSPECIFIED Status: Acute (2) Acute kidney injury superimposed on CKD Code(s): N17.9 - ACUTE KIDNEY FAILURE, UNSPECIFIED; N18.9 - CHRONIC KIDNEY DISEASE, UNSPECIFIED Status: Acute (3) CAD (coronary artery disease) Code(s): I25.10 - ATHSCL HEART DISEASE OF [place] CORONARY ARTERY W/O ANG PCTRS Status: Acute (4) First degree heart block by electrocardiogram Code(s): I44.0 - ATRIOVENTRICULAR BLOCK, FIRST DEGREE Status: Acute (5) New onset left bundle branch block (LBBB) Code(s): I44.7 - LEFT BUNDLE-BRANCH BLOCK, UNSPECIFIED Status: Acute (6) New onset of congestive heart failure Code(s): I50.9 - HEART FAILURE, UNSPECIFIED Status: Acute (7) Prolonged Q-T interval on ECG Code(s): R94.31 - ABNORMAL ELECTROCARDIOGRAM [ECG] [EKG] Status: Acute (8) S/P CABG x 4 Status: Acute (9) Anxiety Code(s): F41.9 - ANXIETY DISORDER, UNSPECIFIED Status: Chronic (10) BPH (benign prostatic hyperplasia) Code(s): N40.0 - BENIGN PROSTATIC HYPERPLASIA WITHOUT LOWER URINRY TRACT SYMP Status: Chronic (11) CKD (chronic kidney disease) Code(s): N18.9 - CHRONIC KIDNEY DISEASE, UNSPECIFIED Status: Chronic (12) Depression Code(s): F32.9 - MAJOR DEPRESSIVE DISORDER, SINGLE EPISODE, UNSPECIFIED Status : Chronic (13) HLD (hyperlipidemia) Code(s): E78.5 - HYPERLIPIDEMIA, UNSPECIFIED Status: Chronic (14) RLS (restless legs syndrome) Status: Chronic (15) T2DM (type 2 diabetes mellitus) Status: Chronic (16) Acute respiratory failure with hypoxia Code(s): J96.01 - ACUTE RESPIRATORY FAILURE WITH HYPOXIA Status: Resolved (17) COPD exacerbation Code(s): J44.1 - CHRONIC OBSTRUCTIVE PULMONARY DISEASE W (ACUTE) EXACERBATION Status: Resolved - Plan Plan: 1) CAD S/p CABG X4 vessel: Post Op Day #4 - CABG X4 vessel on 11/16/18 - Post op management per CV Surg - Extubated on 11/16/18 - Off Dopamine and Levophed ggts - Increased to high intensity statin 2) Acute hypoxic respiratory distress (Resolved): - likely 2/2 COPD exacerbation, with possible new onset CHF - 50 pk year history of smoking with known COPD, 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 - Completed full course of prednisone and complete course of doxycycline - Duonebs prn 3) New onset CHF: - No record of CHF in chart. - Consulted cardiology, Dr. Tran, appreciate recs. - Continue home meds - Echo showed depressed LV function, EF of 20-25% - Underwent Cardiac Cath, showed 3 vessel disease - CABG on 11/16 - Will be set up with lifevest prior to D/c - Continue BB, QUAN-I 4) COPD: - See #2 5) HTN: - home meds, PRNs available - lisinopril started by Dr. Tran; increased dose for better control 6) HTN urgency: resolved - PRN available 7) DM2: - Home meds - May restart metformin 8) DENAE: - CPAP HS 9) GRACE vs CKD; resolved - avoiding nephrotoxic agents if possible - kidney function has stabilized 10) BPH: - flomax 11) Crohns disease: - home meds. 12) Prolonged QTc Interval: - monitor on tele, avoid QT prolonging agents Dispo: Stable. Will await recs from [facility] regarding d/c home. Patient will need lifevest prior to d/c. Addendum - Attending - Attending Attestation Date/Time: 11/21/18 7201 I personally evaluated the patient and discussed the management with Dr. Laughlin. I agree with the History, Examination, Assessment and Plan documented above with any addition or exceptions noted below. Adjusting statin and lisinopril dosing for better bp control. Doing well. Will f/u with CV surg recs.
[2018-11-21 06:44] LABS: #Basophils 0.1 thou/uL (0.0-0.2); #Eosinphils 0.4 thou/uL (0.0-0.7); #Lymphocytes 2.7 thou/uL (1.20-3.40); #Monocytes 0.9 thou/uL (0.11-0.59); #Neutrophils 5.7 thou/uL (1.40-6.50); %Basophils 1.5 % (0.0-1.0); %Eosinophils 3.8 % (0.0-10.0); %Lymphocytes 27.3 % (21.0-51.0); %Monocytes 9.5 % (0.0-10.0); %Neutrophils 57.9 % (42.0-75.0); Hemoglobin 10.6 g/dL (14.0-18.0); Mean Corpuscular HGB CONC 31.7 g/dL (32.0-36.0); Mean Corpuscular Hemoglobin 27.1 pg (27.0-31.0); Mean Corpuscular Volume 85.6 fL (78.0-98.0); Mean Platelet Volume 9.8 fL (7.4-10.4); Platelet Count 202 thou/uL (130-400); RBC Distribution Width 14.6 % (11.5-14.5); White Blood Cell (WBC) Count 9.8 thou/uL (4.8-10.8)
[2018-11-21 06:51] LABS: Anion Gap 13 mmol/L (10-20); BUN (Urea Nitrogen) 15 mg/dL (8.4-25.7); Calc. Creatinine Clearance 102 mL/min (70-130); Calcium 8.6 mg/dL (7.8-10.44); Carbon Dioxide 28 mmol/L (23-31); Chloride 104 mmol/L (98-107); Estimated GFR-MDRD 59; Glucose 148 mg/dL (83-110); Potassium 3.8 mmol/L (3.5-5.1); Sodium 141 mmol/L (136-145)
[2018-11-21] MEDS: Carvedilol 6.25 MG TAB PO SCH ×3 (09:07→21:34)
[2018-11-21] MEDS: Lisinopril 10 MG TAB PO SCH ×2 (09:08→21:33)
[2018-11-21] MEDS: HYDROcodone/Acetaminophen 5/325 mg Tablet PO PRN ×4 (09:08→21:33)
[2018-11-21] MEDS: Aspirin 325 mg Enteric Coated Tablet PO SCH (09:08)
[2018-11-21] MEDS: Furosemide 40 MG TAB PO SCH (09:08)
[2018-11-21] MEDS: Famotidine 20 MG TAB PO SCH ×2 (09:08→21:34)
[2018-11-21] MEDS: NPH, Human Insulin Isophane 300 UNIT/3 ML VIAL SC SCH ×2 (09:09→21:35)
[2018-11-21 15:07] VITALS: BMI 39.7
[2018-11-21] MEDS ORDERED: Atorvastatin Calcium 40 MG TAB PO SCH (21:00)
[2018-11-21] MEDS: ALPRAZolam 0.25 MG TAB PO PRN (21:33)
[2018-11-22] MEDS: HYDROcodone/Acetaminophen 5/325 mg Tablet PO PRN ×2 (04:45→09:43)
[2018-11-22 05:07] LABS: #Basophils 0.1 thou/uL (0.0-0.2); #Eosinphils 0.3 thou/uL (0.0-0.7); #Lymphocytes 2.8 thou/uL (1.20-3.40); #Neutrophils 5.8 thou/uL (1.40-6.50); %Basophils 1.4 % (0.0-1.0); %Eosinophils 3.4 % (0.0-10.0); %Monocytes 9.6 % (0.0-10.0); %Neutrophils 57.6 % (42.0-75.0); Hemoglobin 10.7 g/dL (14.0-18.0); Mean Corpuscular Hemoglobin 27.3 pg (27.0-31.0); Mean Corpuscular Volume 85.4 fL (78.0-98.0); Mean Platelet Volume 9.3 fL (7.4-10.4); Platelet Count 208 thou/uL (130-400); RBC Distribution Width 14.6 % (11.5-14.5); Red Blood Cell (RBC) Count 3.91 mill/uL (4.70-6.10); White Blood Cell (WBC) Count 10.1 thou/uL (4.8-10.8)
[2018-11-22 05:53] LABS: Anion Gap 15 mmol/L (10-20); BUN (Urea Nitrogen) 22 mg/dL (8.4-25.7); Calc. Creatinine Clearance 88 mL/min (70-130); Calcium 8.4 mg/dL (7.8-10.44); Carbon Dioxide 21 mmol/L (23-31); Chloride 106 mmol/L (98-107); Estimated GFR-MDRD 50; Glucose 117 mg/dL (83-110); Potassium 3.9 mmol/L (3.5-5.1); Sodium 138 mmol/L (136-145)
--- NOTE | 2018-11-22 07:35 | PDOC.FM ---
- Subjective Subjective: Patient doing well this AM. No significant overnight events. Patient is ready to go home. He is going to live with his sister while he undergoes rehab. Patient denies chest pain, palpitations, shortness of breath, or swelling. - Objective MAR Reviewed: Yes Vital Signs & Weight: Vital Signs (12 hours) Temp Pulse Resp BP BP Pulse Ox 11/22/18 03:34 98.1 F 68 16 134/63 96 11/21/18 21:33 141/61 H 11/21/18 21:30 95 11/21/18 21:29 98.2 F 72 16 141/61 H 95 Weight Admit Weight 130.861 kg Weight 126.552 kg Most Recent Monitor Data Heart Rate from ECG 98 NIBP 118/66 NIBP BP-Mean 83 Respiration from ECG 20 SpO2 95 I&O: 11/21/18 11/22/18 11/23/18 06:59 06:59 06:59 Intake Total 1800 240 Output Total 3800 525 Balance -1999 Result Diagrams: 11/22/18 04:36 11/22/18 04:36 EKG Reviewed by me: Yes Radiology Reviewed by me: Yes Phys Exam - Physical Examination Constitutional: NAD HEENT: moist MMs Respiratory: wheezing present Cardiovascular: RRR, no significant murmur Gastrointestinal: soft, non-tender, no distention, positive bowel sounds Musculoskeletal: no edema, pulses present Neurological: non-focal Psychiatric: normal affect, A&O x 3 Skin: no rash, cap refill <2 seconds Dx/Plan (1) Acute kidney injury superimposed on CKD Code(s): N17.9 - ACUTE KIDNEY FAILURE, UNSPECIFIED; N18.9 - CHRONIC KIDNEY DISEASE, UNSPECIFIED Status: Acute (2) CAD (coronary artery disease) Code(s): I25.10 - ATHSCL HEART DISEASE OF [place] CORONARY ARTERY W/O ANG PCTRS Status: Acute (3) First degree heart block by electrocardiogram Code(s): I44.0 - ATRIOVENTRICULAR BLOCK, FIRST DEGREE Status: Acute (4) New onset left bundle branch block (LBBB) Code(s): I44.7 - LEFT BUNDLE-BRANCH BLOCK, UNSPECIFIED Status: Acute (5) New onset of congestive heart failure Code(s): I50.9 - HEART FAILURE, UNSPECIFIED Status: Acute (6) Prolonged Q-T interval on ECG Code(s): R94.31 - ABNORMAL ELECTROCARDIOGRAM [ECG] [EKG] Status: Acute (7) S/P CABG x 4 Status: Acute (8) Anxiety Code(s): F41.9 - ANXIETY DISORDER, UNSPECIFIED Status: Chronic (9) BPH (benign prostatic hyperplasia) Code(s): N40.0 - BENIGN PROSTATIC HYPERPLASIA WITHOUT LOWER URINRY TRACT SYMP Status: Chronic (10) CKD (chronic kidney disease) Code(s): N18.9 - CHRONIC KIDNEY DISEASE, UNSPECIFIED Status: Chronic (11) Depression Code(s): F32.9 - MAJOR DEPRESSIVE DISORDER, SINGLE EPISODE, UNSPECIFIED Status : Chronic (12) HLD (hyperlipidemia) Code(s): E78.5 - HYPERLIPIDEMIA, UNSPECIFIED Status: Chronic (13) RLS (restless legs syndrome) Status: Chronic (14) T2DM (type 2 diabetes mellitus) Status: Chronic (15) Acute respiratory failure with hypoxia Code(s): J96.01 - ACUTE RESPIRATORY FAILURE WITH HYPOXIA Status: Resolved (16) COPD exacerbation Code(s): J44.1 - CHRONIC OBSTRUCTIVE PULMONARY DISEASE W (ACUTE) EXACERBATION Status: Resolved - Plan Plan: 1) CAD S/p CABG X4 vessel: Post Op Day #5 - CABG X4 vessel on 11/16/18 - Post op management per CV Surg - Extubated on 11/16/18 - Continue high intensity statin 2) Acute hypoxic respiratory distress (Resolved): - likely 2/2 COPD exacerbation, with new onset CHF (20-25%) - 50 pk year history of smoking with known COPD, 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 - Completed full course of prednisone and complete course of doxycycline - Duonebs prn 3) New onset CHF: - No record of CHF in chart. - Consulted cardiology, Dr. Tran, appreciate recs. - Continue home meds - Echo showed depressed LV function, EF of 20-25% - Underwent Cardiac Cath, showed 3 vessel disease - CABG on 11/16 - Life[facility] has been set up - Continue BB, QUAN-I 4) COPD: - See #2 5) HTN: - home meds, PRNs available - continue QUAN-I 6) HTN urgency: resolved - PRN available 7) DM2: - Home meds - May restart metformin 8) DENAE: - CPAP HS 9) GRACE vs CKD; resolved - avoiding nephrotoxic agents if possible - kidney function has stabilized 10) BPH: - flomax 11) Crohns disease: - home meds. 12) Prolonged QTc Interval: - monitor on tele, avoid QT prolonging agents Dispo: Stable. [facility] has been set up for patient. Awaiting d/c approval by [facility]. Remove central line prior to d/c. Addendum - Attending - Attending Attestation Date/Time: 11/22/18 5332 I personally evaluated the patient and discussed the management with Dr. Laughlin. I agree with the History, Examination, Assessment and Plan documented above with any addition or exceptions noted below. Patient received the life vest yesterday. He is feeling well and hoping to go home. We are waiting on CV surgery clearance. Hypertension is improved with adjustment of lisinopril.
[2018-11-22] MEDS: Aspirin 325 mg Enteric Coated Tablet PO SCH (09:41)
[2018-11-22] MEDS: Famotidine 20 MG TAB PO SCH (09:42)
[2018-11-22] MEDS: Lisinopril 10 MG TAB PO SCH (09:42)
[2018-11-22] MEDS: Furosemide 40 MG TAB PO SCH (09:42)
[2018-11-22] MEDS: Carvedilol 6.25 MG TAB PO SCH ×2 (09:42→14:41)
[2018-11-22] MEDS: NPH, Human Insulin Isophane 300 UNIT/3 ML VIAL SC SCH (09:43)
[2018-11-22 15:39] VITALS: BP 142/67; TEMP 98.3
--- NOTE | 2018-11-25 14:59 | DIS ---
DATE OF ADMISSION: 11/10/2018 DATE OF DISCHARGE: 11/22/2018 RESIDENT: Erick Alvarez MD ADMITTING ATTENDING: Dr. Marcin Cee. DISCHARGE ATTENDING: Dr. Patito Domínguez. CONSULTS: 1. Pulmonology, Dr. Griggs on 11/17/2018. 2. Cardiology, Dr. Tran on 11/11/2018. 3. Cardiovascular Surgery, Dr. Christian on 11/12/2018. 4. Cardiac rehab inpatient. 5. Cardiac rehab outpatient. 6. CT team routine. 7. Heart Failure Clinic routine. PROCEDURES: 1. Chest x-ray on 11/10/2018, impression; increased perihilar interstitial densities greater on the left, which may be related to pulmonary edema or infectious process. 2. EKG on 11/10/2018, sinus rhythm with occasional and consecutive premature ventricular complexes, left bundle branch block. 3. Cardiac catheterization on 11/10/2018, procedure summary 3-vessel coronary artery disease, severely impaired ventricular function. 4. Echocardiogram on 11/11/2018, summary; ejection fraction is visually estimated at 20% to 25%, E/A flow reversal noted suggestive of diastolic dysfunction, moderate mitral regurgitation is present, left atrium is mildly dilated. 5. Chest x-ray on 11/14/2018, impression; interval improvement and resolution of pulmonary vascular congestion. No new abnormalities are demonstrated. 6. Chest x-ray on 11/16/2018, impression; new enlargement of soft tissue attenuation around the aortic knob. Close attention on followup imaging is recommended. Remainder of the findings is expected post coronary artery bypass graft. 7. Coronary artery bypass graft on 11/16/2018: CABG x4 with left internal mammary artery to the mid LAD and reversed greater saphenous vein graft from the aorta to the PDA and sequential reversed greater saphenous vein graft from the aorta to the medial branch of the diagonal to the obtuse marginal branch, bilateral femoral arterial line placement with ultrasound guidance. 8. Chest x-ray on 11/17/2018, impression; postop changes as increased density in the left perihilar, suprahilar region in left lung base and bilateral costophrenic angles. 9. Chest x-ray on 11/18/2018, in the left basilar atelectasis and/or infiltrate. 10. Chest x-ray on 11/19/2018, decreasing size of small left hydropneumothorax. There is persistent mild left basilar atelectasis, right subclavian central venous catheter is unchanged, midline sternotomy changes are similar appearing. The right lung is clear. 11. Chest x-ray on 11/20/2018, stable radiographics appearance of the chest. PRIMARY DIAGNOSES: 1. Acute hypoxic respiratory failure. 2. Chronic obstructive pulmonary disease exacerbation. 3. New onset congestive heart failure. 4. New onset left bundle branch block. SECONDARY DIAGNOSES: 1. Acute kidney injury on chronic kidney disease. 2. Hyperlipidemia. 3. Type 2 diabetes mellitus. 4. BPH. 5. Restless legs syndrome. 6. Anxiety. 7. Depression. 8. Crohn disease. 9. Obstructive sleep apnea. 10. Hypertension. DISCHARGE MEDICATIONS: Resume home medications includin. Tramadol HCL 50 mg p.o. q.8 hours p.r.n. 2. Metoprolol tartrate 100 mg tablet 1 tablet p.o. b.i.d. 3. Insulin detemir 105 units subcu b.i.d. 4. Insulin aspart 70 units t.i.d. 5. Lomotil 2 tablets p.o. q.i.d. p.r.n. 6. Oxymetazoline 2 to 3 sprays each naris b.i.d. p.r.n. 7. Trazodone 100 mg one tablet p.o. at bedtime. 8. Flexeril 10 mg p.o. t.i.d. p.r.n. 9. Venlafaxine 75 mg tablet 3 tablets p.o. daily. 10. Ropinirole 2 mg p.o. at bedtime. 11. Ferrous sulfate 325 mg p.o. q.a.m. with meals. 12. Centrum Silver tablet 1 tablet p.o. daily. 13. Loratadine 10 mg tablet p.o. daily. 14. Naproxen 220 mg p.o. b.i.d. p.r.n. 15. Tamsulosin 0.4 mg p.o. daily. 16. Imodium 2 mg p.o. p.r.n. 17. Mucinex 600 mg p.o. b.i.d. p.r.n. New home medications include: 1. Aspirin 325 mg p.o. daily. 2. Atorvastatin calcium 40 mg p.o. at bedtime. 3. Carvedilol 6.25 mg p.o. t.i.d. 4. Lasix 40 mg p.o. daily a.c. 5. Lisinopril 10 mg p.o. b.i.d. 6. [place] 5/325 one or two tablets p.o. q.4 hours p.r.n. HISTORY OF PRESENT ILLNESS/HOSPITAL COURSE: Vamsi Herndon is a 73-year-old male with past medical history of hypertension, type 2 diabetes, obstructive sleep apnea, Crohn disease, and hyperlipidemia, who presented to the ED with shortness of breath. He reports always being short of breath, but over the last few days prior to admission, began worsening. He knows he currently walk about 15 steps before becoming very short of breath. On the day of admission, it became its worst and he tried to use the CPAP, which helped him slightly, but he cannot take off his CPAP without becoming short of breath, so he called the EMS. When they arrived, he was hypoxic to the low 80s, started him on BiPAP and his respiratory distress improved. His O2 sats improved to low 90s. On chest x-ray, it showed pulmonary edema and EKG showed a new left bundle branch block and QT prolongation as well as first-degree heart block. The patient denied by active chest pain or fever. He was given nitropaste, Lasix, DuoNeb, and methylprednisolone in the ED, and his breathing had improved and he was able to be taken off BiPAP and satting 92% on room air with respirations of 20 per minute. The patient was admitted for acute hypoxic respiratory failure secondary to combined COPD exacerbation and new onset congestive heart failure. The patient was treated for COPD exacerbation with 5 days of prednisone, doxycycline, and scheduled DuoNebs and Cardiology, Dr. Tran was consulted on day #1 of this admission per new onset congestive heart failure with new left bundle branch block. The patient was taken to the labor and delivery nurse on 11/10/2018 and found to have 3-vessel coronary artery disease. Dr. Tran consulted CV surgery, Dr. Linares, who decided to pursue coronary artery bypass graft. This was performed on 11/16/2018. By this time, the patient had already fully recovered from the COPD and CHF exacerbation. He was back to his normal respiratory baseline. He was satting well on room air and continue to use the CPAP at night. After CABG, he was immediately placed in ICU for post coronary artery bypass graft management. Postop management was uncomplicated. The patient recovered well from his CABG. Chest tubes were removed on postop day. The patient was extubated on 11/16/2018, which the day of procedure. He was weaned off dopamine and levophed drips quickly thereafter, and chest tubes were pulled on postop day #3. The patient was cleared for discharge by CT surgery and Cardiology on 11/22/2018. After a quick postop recovery, he was discharged to home. He will be standing with his sister while he continues rehab with instruction to follow up with primary care provider on 11/27/2018, follow up with Dr. Tran, Cardiology in 3 to 4 weeks and follow up with Dr. Linares on 12/08/2018 as well as following up with Cardiac Rehab and Heart Failure Clinic. DISPOSITION: Stable. The patient is doing well and recovered well from coronary artery bypass graft as well as COPD and CHF exacerbations. He should do well if he continues his medication regimen that was prescribed upon discharge and keeps his normal followup appointments. DISCHARGE INSTRUCTIONS: 1. Location: Home with sister. 2. Diet: Heart healthy and diabetic diet. 3. Activity: Cardiopulmonary limits. 4. Followup: Follow up with Dr. Linares on 12/08/2018, Dr. Tran in 3 to 4 weeks, Dr. Yang on 11/27/2018, and Heart Failure Clinic and Cardiac Rehab. Job ID: [id number]
== END 2018-11-22 16:29 | disposition home or self-care (01) | DRG 233 ==
LOC: ERS 18:37 → 2NO 20:57 → CCU 11-16 06:36 → 2NO 11-17 23:40
PROVIDERS: ADMIT Family Medicine; ATTEND Family Medicine
PROC: 5A09357 Assistance with Respiratory Ventilation, Less than 24 Consecutive Hours, Continuous Positive Airway Pressure (ICD-10-PCS; 2018-11-11)
PROC: 4A023N7 Measurement of Cardiac Sampling and Pressure, Left Heart, Percutaneous Approach (ICD-10-PCS; 2018-11-12)
PROC: B2111ZZ Fluoroscopy of Multiple Coronary Arteries using Low Osmolar Contrast (ICD-10-PCS; 2018-11-12)
PROC: B2151ZZ Fluoroscopy of Left Heart using Low Osmolar Contrast (ICD-10-PCS; 2018-11-12)
PROC: 02100Z9 Bypass Coronary Artery, One Artery from Left Internal Mammary, Open Approach (ICD-10-PCS; principal; 2018-11-16)
PROC: 021209W Bypass Coronary Artery, Three Arteries from Aorta with Autologous Venous Tissue, Open Approach (ICD-10-PCS; 2018-11-16)
PROC: 06BQ0ZZ Excision of Left Saphenous Vein, Open Approach (ICD-10-PCS; 2018-11-16)
PROC: 06BP0ZZ Excision of Right Saphenous Vein, Open Approach (ICD-10-PCS; 2018-11-16)
PROC: 5A1221Z Performance of Cardiac Output, Continuous (ICD-10-PCS; 2018-11-16)
PROC: 04HY32Z Insertion of Monitoring Device into Lower Artery, Percutaneous Approach (ICD-10-PCS; 2018-11-16)
DX: I13.0 Hypertensive heart and chronic kidney disease with heart failure and stage 1 through stage 4 chronic kidney disease, or unspecified chronic kidney disease (principal); J96.01 Acute respiratory failure with hypoxia; J44.1 Chronic obstructive pulmonary disease with (acute) exacerbation; N17.9 Acute kidney failure, unspecified; K50.90 Crohn's disease, unspecified, without complications; I50.41 Acute combined systolic (congestive) and diastolic (congestive) heart failure; E11.22 Type 2 diabetes mellitus with diabetic chronic kidney disease; I24.8 Other forms of acute ischemic heart disease; I25.10 Atherosclerotic heart disease of native coronary artery without angina pectoris; I25.5 Ischemic cardiomyopathy; I16.0 Hypertensive urgency; N18.9 Chronic kidney disease, unspecified; E78.5 Hyperlipidemia, unspecified; N40.0 Benign prostatic hyperplasia without lower urinary tract symptoms; G25.81 Restless legs syndrome; F41.9 Anxiety disorder, unspecified; F32.9 Major depressive disorder, single episode, unspecified; G47.33 Obstructive sleep apnea (adult) (pediatric); E66.9 Obesity, unspecified; I44.7 Left bundle-branch block, unspecified; Z68.38 Body mass index [BMI] 38.0-38.9, adult; Z87.891 Personal history of nicotine dependence; Z88.2 Allergy status to sulfonamides; Z79.4 Long term (current) use of insulin; Z79.899 Other long term (current) drug therapy; Z96.652 Presence of left artificial knee joint; Z90.5 Acquired absence of kidney
CPT/HCPCS: 36415; 36416; 36430; 71045; 71046; 80048; 80053; 80061; 82550; 82553; 82805; 83036; 83880; 84145; 84484; 85025; 85347; 85610; 85730; 86850; 86900; 86901; 90471; 90662; 90670; 93005; 93010; 93306; 93458; 93798; 94640; 94660; 96374; 96375; 99152; 99153; C1769; G0008; G0009; J1265; J1642; J1644; J1650; J1815; J1940; J2001; J2150; J2250; J2260; J2405; J2440; J2704; J2720; J2930; J3010; J3370; J3475; J3480; J7050; J7506; J7620; P9045; P9047; S0017; S0028

== ENCOUNTER 2019-03-24 16:19 | Observation (INO) | payer MEDICARE ==
[2019-03-24] MEDS ORDERED: methylPREDNISolone Sod Succ/PF 125 MG/2 ML VIAL ONE (17:12)
[2019-03-24] MEDS ORDERED: Ondansetron PF 4 MG/2 ML Vial IVP PRN (18:37)
[2019-03-24] MEDS ORDERED: Acetaminophen 325 MG TAB PO PRN (18:37)
[2019-03-24] MEDS ORDERED: Ondansetron ODT 4 MG TAB PO PRN (18:37)
[2019-03-24] MEDS ORDERED: Dextrose 5% in Water 1,000 ML IV PRN (18:37)
[2019-03-24] MEDS ORDERED: Dextrose 50% Abboject 50 ML SYRINGE SLOW IVP PRN (18:37)
[2019-03-24] MEDS ORDERED: Calcium Carbonate 500 MG ChewTAB PO PRN (18:37)
[2019-03-24] MEDS ORDERED: HumaLOG 300 UNITS/3 ML VIAL SC PRN (18:40)
[2019-03-24 19:55] LABS: Troponin I 0.021 ng/mL (< 0.028)
[2019-03-24] MEDS ORDERED: Furosemide 40 MG/4 ML VIAL SLOW IVP SCH (21:33)
[2019-03-24 22:25] LABS: Troponin I 0.019 ng/mL (< 0.028)
[2019-03-24 23:38] VITALS: BMI 33.6
--- NOTE | 2019-03-25 02:13 | HP ---
LOCATION: [facility] in [place], [place]. HISTORY OF PRESENT ILLNESS: The patient is a 73-year-old male, who has a past medical history of hypertension, heart failure, diabetes, history of pacemaker, and self-reported Crohn disease, although it is unclear as he reports onset was approximately 10 years ago after an episode of sepsis. Additionally, the patient has a history of hypertension, peripheral neuropathy, restless legs syndrome, and hyperlipidemia. He underwent pacemaker placement approximately one month ago and is currently on Plavix as well. He presents with a 2 week history of increasing dyspnea and fatigue. The patient reports that he received 1 unit of blood about one month ago, when he had his pacemaker placed and feels like his blood has steadily been decreasing. In the outpatient setting, he was supposed to be set up with an appointment for GI specialist; however, he reports he is unable to get in with that specialist. His most recent known blood level was 8.8 approximately 2 to 3 weeks ago and his repeat today was 7.9. When questioned, the patient denies any bright red blood per rectum. He denies coffee-ground emesis. Denies hematemesis, although he does report that his stool has been slightly darker since he started his iron supplementation. He denies abdominal pain, nausea, vomiting, early satiety , abdominal distention, bloating, or any abdominal complaint whatsoever. He also denies any chest pain. Has no increased peripheral edema. No diaphoresis. However, he does report an increasing shortness of breath with exertion over the last two weeks, which has progressively worsened. On presentation to the [place] [facility], the patient was found to have a hemoglobin of 7.9. He was worked up for shortness of breath, which included a D-dimer, that was found to be elevated at 1.04, at which point he had a CTA, which showed no evidence of a pulmonary embolism. Other labs included a troponin, which was 0.012 and a BNP, which was 66.1. Of note, the patient is on Entresto for presumed heart failure; however, he is unaware of any of these diagnoses. Additionally, the patient is noted to have an GRACE with creatinine of 1.42 and upon evaluation of previous records, it appears on 11/22/2018, he had a creatinine of 1.41, which would be his presumed baseline. Otherwise, the patient has no complaints and reports when he is resting in bed, he feels fine. REVIEW OF SYSTEMS: GENERAL: The patient denies fever or chills. CARDIOVASCULAR: The patient denies chest pain. Denies diaphoresis. Denies nausea or vomiting. Denies increasing peripheral edema. RESPIRATORY: The patient reports shortness of breath with exertion. ABDOMEN: The patient denies nausea, vomiting, diarrhea, or constipation. He denies hematochezia. Denies hematemesis. Denies coffee-ground emesis. Reports dark stools after initiation of iron supplementation. NEURO: The patient denies any weakness or headaches. PHYSICAL EXAMINATION: VITAL SIGNS: The patient's vitals in the ED; blood pressure 135/66, respiratory rate 20, O2 saturation 100% on room air, temp 98.1, and pulse 76 beats per minute. GENERAL: The patient in no acute distress. Resting comfortably in bed. HEENT: Normocephalic, atraumatic. Extraocular muscles are intact. Pupils are equal, round, and reactive to light with accommodation. No evidence of JVD or hepatojugular reflux. CARDIOVASCULAR: Heart is regular rate and rhythm. Distant heart sounds. No murmurs, rubs, or gallops. Peripheral pulses are intact. There is no peripheral edema present. RESPIRATORY: Lungs are clear to auscultation bilaterally without wheezes, rales , or rhonchi. ABDOMEN: Protuberant, soft, nontender, nondistended with bowel sounds normoactive x4 quadrants. EXTREMITIES: No clubbing, cyanosis, or edema. NEURO: No focal deficits. Normal sensation. PSYCH: Alert and oriented and appropriately interactive. PERTINENT LABORATORY RESULTS: Hemoglobin 7.9. D-dimer 1.04 with a negative CTA. Creatinine is 1.42, estimated GFR is 49. LFTs are within normal limits. The patient's MCV is 75. ASSESSMENT AND PLAN: 1. Symptomatic anemia with hemoglobin of 7.9. The patient will be admitted to tele observation and will be transfused 2 units of packed red blood cells. We will trend CBC and monitor for signs of any bleeding. 2. Elevated creatinine. This is likely secondary to chronic kidney disease from underlying diabetes mellitus. On review of previous labs, the last creatinine in our system appears to be 1.41 on 11/22/2018. 3. Heart failure with reduced ejection fraction. The patient had an echo on 11/21/2018 that showed an EF of 20% to 25% and there is also E/A reversal noted with suggestion of diastolic dysfunction. The patient will be again admitted to tele observation and transfuse 2 units of packed red blood cells. We will check daily weights and monitor strict I's and O's. The patient will be resumed on his home heart failure medicine. He does not appear fluid overloaded and again, his BNP was 66. Additionally, we will trend troponins x3 to ensure no cardiac involvement. 4. Restless legs syndrome. Continue home medications. 5. Peripheral neuropathy as a complication of type 2 diabetes mellitus. We will continue home medications. 6. Hyperlipidemia. Continue home medicines. 7. Diabetes mellitus. The patient will be given Lantus 30 units subcu a.m. and mild sliding scale insulin in addition to Accu-Cheks a.c. and at bedtime. PRIMARY CARE PROVIDER: John SILVEIR[facility] DISPOSITION: The patient is stable, will be admitted to tele observation for blood products. We will consider GI consult for further workup. Attending Note: Patient was seen and examined by me alongside resident. Chart reviewed by myself. Agree with documented H&P as above. Will continue transfusion of RBCs. Monitor closely due to risk for fluid overload. Consult GI for endo in AM. Will discuss if able to start prep tonight. Delgado Job ID: [id number] [facility]
[2019-03-25] MEDS ORDERED: Furosemide 40 MG/4 ML VIAL SLOW IVP SCH (03:15)
--- NOTE | 2019-03-25 05:51 | PDOC.FM ---
- Subjective Subjective: Pt reports he is feeling much improved this morning. He denies sob, chest pain, abdominal pain, or nausea/vomiting. He denies recent bright red blood per rectum , vomiting blood, but does report darker stools. - Objective MAR Reviewed: Yes Vital Signs & Weight: Vital Signs (12 hours) Temp Pulse Resp BP Pulse Ox 03/25/19 03:11 98.7 F 98 12 148/67 H 95 03/24/19 22:04 98.1 F 86 19 127/59 L 97 03/24/19 21:52 98.2 F 89 19 133/63 96 03/24/19 18:38 97 Weight Weight 109.361 kg I&O: 03/23/19 03/24/19 03/25/19 06:59 06:59 06:59 Intake Total 350 Balance 350 Result Diagrams: 03/25/19 05:24 03/25/19 05:24 Phys Exam - Physical Examination Constitutional: NAD HEENT: moist MMs Neck: no JVD, full ROM Respiratory: no wheezing, no rales, clear to auscultation bilateral Cardiovascular: RRR, no significant murmur, no rub Gastrointestinal: soft, non-tender, no distention, positive bowel sounds Rectal exam shows dark stool, no bright red blood or hemorrhoids Prostate was enlarged with no masses or nodules, stool sent for FOBT Musculoskeletal: no edema, pulses present Neurological: normal sensation, moves all 4 limbs Psychiatric: normal affect, A&O x 3 Skin: cap refill <2 seconds Dx/Plan (1) HFrEF (heart failure with reduced ejection fraction) Code(s): I50.20 - UNSPECIFIED SYSTOLIC (CONGESTIVE) HEART FAILURE Status: Acute (2) Acute kidney injury superimposed on CKD Code(s): N17.9 - ACUTE KIDNEY FAILURE, UNSPECIFIED; N18.9 - CHRONIC KIDNEY DISEASE, UNSPECIFIED Status: Acute (3) RLS (restless legs syndrome) Status: Chronic (4) T2DM (type 2 diabetes mellitus) Status: Chronic - Plan Plan: This is a 73 yo male with a pmh of HTN, DM2, recent pacemaker placement, HFrEF, self reported crohns disease Symptomatic anemia -S/p 2 units -Initial Hgb 7.9, pending repeat -Darker stool, melana vs Iron -Consult GI for evaluation -Pending FOBT here -NPO now Hx of Crohns per patient -Sounds more like an ischemic event leading to bowel disease, pt reports Humira GRACE on CKD -Baseline cr appears 1.15 -Pending repeat morning BMP HFrEF -Echo on 11/21/18 shows EF of 20-25% with E/A reversal suggestive of diastolic dysfunction -Strict I&Os -BNP 66 -Monitor for fluid overload with blood products Restless leg syndrome -Continue home meds 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 Louis I agree with the History, Examination, Assessment and Plan documented above with any addition or exceptions noted below. 73 yo [place] presents with weakness with PMHX [facility] with DX Crohns on Humira states he was due for routine surveillance colonoscopy in 2019 recent anemia started on FeSO4 with reported guiac positive stool at outlying ER. PMHX DENAE, CAD s/p CABG Hx pacemaker . Patient denies melena or hematemesis. rectal exam no mass no hemorrhoids per Dr Rm exam will consult GI for any further recommendations Patient s/p transfusion 2 units PRBCs for symptomatic anemia.
[2019-03-25] MEDS ORDERED: guaiFENesin ER 600 MG TAB PO PRN (05:58)
[2019-03-25] MEDS ORDERED: Cyclobenzaprine 10 MG TAB PO PRN (05:58)
[2019-03-25] MEDS ORDERED: traMADol HCl 50 MG TAB PO PRN (05:58)
[2019-03-25] MEDS ORDERED: Non-Formulary Item 1 EACH (Ranitidine Hcl [Zantac 75] 75 MG) PO SCH (06:00)
[2019-03-25] MEDS ORDERED: Famotidine 20 MG TAB PO PRN (06:14)
[2019-03-25 06:37] LABS: #Basophils 0.1 thou/uL (0.0-0.2); #Lymphocytes 2.2 thou/uL (1.20-3.40); #Monocytes 0.3 thou/uL (0.11-0.59); #Neutrophils 9.1 thou/uL (1.40-6.50); %Basophils 0.5 % (0.0-1.0); %Eosinophils 0.3 % (0.0-10.0); %Lymphocytes 19.2 % (21.0-51.0); %Monocytes 2.4 % (0.0-10.0); %Neutrophils 77.7 % (42.0-75.0); Hemoglobin 10.5 g/dL (14.0-18.0); Mean Corpuscular HGB CONC 30.4 g/dL (32.0-36.0); Mean Corpuscular Hemoglobin 24.2 pg (27.0-31.0); Mean Corpuscular Volume 79.6 fL (78.0-98.0); Mean Platelet Volume 11.7 fL (7.4-10.4); Red Blood Cell (RBC) Count 4.35 mill/uL (4.70-6.10); White Blood Cell (WBC) Count 11.7 thou/uL (4.8-10.8)
[2019-03-25 07:07] LABS: Anion Gap 18 mmol/L (10-20); BUN (Urea Nitrogen) 26 mg/dL (8.4-25.7); Calc. Creatinine Clearance 62 mL/min (70-130); Calcium 9.1 mg/dL (7.8-10.44); Carbon Dioxide 16 mmol/L (23-31); Chloride 109 mmol/L (98-107); Estimated GFR-MDRD 40; Glucose 382 mg/dL (83-110); Potassium 4.5 mmol/L (3.5-5.1); Sodium 138 mmol/L (136-145)
[2019-03-25 07:25] LABS: Platelet Count 244 thou/uL (130-400)
[2019-03-25] MEDS: Insulin Glargine 30 UNITS in Pre-Filled Syringe SC SCH (08:26)
[2019-03-25] MEDS: Sacubitril 24.5 MG/Valsartan 25.5 MG TABLET PO SCH ×2 (08:27→21:13)
[2019-03-25] MEDS: Multivitamin W/ Minerals 1 TAB PO SCH (08:27)
[2019-03-25] MEDS: Carvedilol 3.125 MG TAB PO SCH ×2 (08:27→21:11)
[2019-03-25] MEDS: Aspirin 81 mg Enteric Coated Tablet PO SCH (08:27)
[2019-03-25] MEDS: Loratadine 10 MG TAB PO SCH (08:27)
[2019-03-25] MEDS: Tamsulosin HCl 0.4 MG CAP PO SCH (08:27)
[2019-03-25] MEDS ORDERED: Non-Formulary Item 1 EACH (Cetirizine Hcl [Zyrtec] 10 MG) PO SCH (09:00)
[2019-03-25] MEDS ORDERED: Non-Formulary Item 1 EACH (Multivit-Min/Fa/Lycopen/Lutein [Centrum Silver Tablet] 1 EACH) PO SCH (09:00)
[2019-03-25] MEDS ORDERED: Carvedilol 6.25 MG TAB PO SCH (09:00)
[2019-03-25] MEDS ORDERED: Non-Formulary Item 1 EACH (Sacubitril/Valsartan [Entresto 24 Mg-26 Mg Tablet] 1 EACH) PO SCH (09:00)
[2019-03-25] MEDS ORDERED: Aspirin 325 mg Enteric Coated Tablet PO SCH (09:00)
[2019-03-25] MEDS ORDERED: GoLYTELY 4,000 ml Bottle PO SCH ×2 (16:00→18:00)
[2019-03-25] MEDS ORDERED: Non-Formulary Item 1 EACH (Trazodone Hcl [Trazodone Hcl] 1 TAB) PO SCH (21:00)
[2019-03-25] MEDS ORDERED: rOPINIRole HCl 1 MG TAB PO SCH (21:00)
[2019-03-25] MEDS ORDERED: Atorvastatin Calcium 40 MG TAB PO SCH (21:00)
[2019-03-25] MEDS ORDERED: Gabapentin 300 MG CAP PO SCH (21:00)
[2019-03-25] MEDS ORDERED: Non-Formulary Item 1 EACH (Gabapentin [Gabapentin] 600 MG) PO SCH (21:00)
[2019-03-25] MEDS ORDERED: traZODone HCl 50 MG TAB PO SCH (21:00)
[2019-03-25] MEDS: Pantoprazole 40 MG VIAL IVP SCH (21:10)
--- NOTE | 2019-03-25 21:46 | CON ---
DATE OF CONSULTATION: 03/25/2019 REASON FOR CONSULT: Iron deficiency anemia, requested endoscopy. HISTORY OF PRESENT ILLNESS: Mr. Herndon is a 73-year-old gentleman with multiple medical problems who recently underwent coronary artery bypass grafting at this hospital for unstable angina and three-vessel disease in November 2018. After that hospitalization, he was discharged home on aspirin, ibuprofen, Naprosyn, iron. No ulcer prophylaxis. Apparently, now he is seeing a recreation worker in [facility] and he has been started on Plavix. As an outpatient, his hemoglobin apparently was dropping. He was going to have an outpatient evaluation. He was going to see a gastrologist in [facility], but we are are waiting for old records from the [facility] and from our office where he had been seen in the past, no endoscopy had been set up. In the meantime, he became more short of breath and dyspneic and came to the hospital yesterday evening for worsening shortness of breath and dyspnea and fatigue. He denied any chest pain. The patient reported he received a unit of blood about a month ago when he had his pacemaker placed in [place] and he felt like his blood count was getting lower. Apparently 2-3 weeks before admission, his hemoglobin was 8.8, here it was 7.9. He was admitted for further evaluation. Here, he has been given some blood and we have been asked to see him. He has had Hemoccult-positive stool. He denies any hematemesis, nausea, vomiting, melena, or hematochezia. His stool has been dark, but he has been on iron for the past month and that correlates the time the stool has been dark. He denies any weight loss, abdominal pain. He had a pacemaker and a defibrillator placed a month ago in [place] by his recreation worker there, previously was seeing Cardiology here. He reports as he was doing cardiac rehab down there and living with his sister it was easier for him to see doctors in that area. He reports he is on Humira and has been getting that from the [facility] for the past 11 years. Apparently, he states that a gastrologist here, I think it was Dr. Aragon had seen him and told him he had Crohn's. He states that Dr. Aragon started him on Humira at that time, although reviewing our chart record, I can only see that he has had a colonoscopy in 2010, at which time he had some ileal disease and a colonoscopy in 16, which was completely normal including the ileum. I do not have his office chart for me, we will have to review that to see if there has been any other details of Crohn's treatment, although the patient notes he has not seen Dr. Aragon since 2016 and he is being treated at the [facility]. REVIEW OF SYSTEMS: Negative for chest pain, shortness of breath at this time. He has had dyspnea on exertion at home. He has no overt peripheral edema. He denies any cough. Abdomen, no nausea, vomiting, change in appetite, change in weight. In the past, he has had right lower quadrant pain intermittently for many years. Since he started the Humira, he has not had a problem with that. It is unclear to me if he has had immunizations for hepatitis A or B or shingles or if he has had testing for TB since he is on Humira. MEDICATIONS: At home, 1. Trazodone. 2. Ropinirole. 3. Tramadol. 4. Mucinex. 5. Entresto. 6. Ranitidine. 7. Multivitamin. 8. Loperamide. 9. Insulin. 10. Gabapentin. 11. Iron. 12. Cyclobenzaprine. 13. Plavix. 14. Zyrtec. 15. Coreg. 16. Lipitor. 17. Aspirin 81 mg a day, and now he is taking ibuprofen and Aleve. Medications here; 1. Tylenol. 2. Aspirin. 3. Lipitor. 4. Tums. 5. Coreg. 6. Flexeril. 7. Gabapentin. 8. Insulin sliding scale. 9. Claritin. 10. Multivitamin. 11. Zofran p.r.n. 12. Zantac. 13. Requip. 14. Entresto. 15. Ultram. 16. Desyrel. PAST MEDICAL HISTORY: Coronary artery disease status post bypass grafting, anemia, chronic, possible inflammatory bowel disease/Crohn disease by patient history, hyperlipidemia, hypertension, osteoarthritis, anxiety and depression. PAST SURGICAL HISTORY: Left knee, right kidney removed, lymph nodes of left shoulder removed, hernia, abdominal cholecystectomy, CABG x4, previous colonoscopies. SOCIAL HISTORY: Drinks socially twice per month. Does not use drugs. He is a former smoker. Quit 10 years ago. PHYSICAL EXAMINATION: GENERAL: He is presently resting comfortably in bed. He is alert and oriented to person, place, and time. VITAL SIGNS: Temperature is 96, pulse 80, blood pressure 131/60. LUNGS: Clear. HEART: Regular rate and rhythm without clicks, rubs, or murmurs. ABDOMEN: Soft and nontender without hepatosplenomegaly. There is no rebound tenderness or guarding. There are no hernias palpated. There are no overt large scars. SKIN: On his chest, well-healed chest scar. EXTREMITIES: No clubbing, cyanosis, or edema. LABORATORY DATA: White count was 11.7 this morning, hemoglobin 10.5, it was 7.9 yesterday when he came. He has received 2 units of blood since his MCV was 75, platelet count was 252. INR 1.9, BUN and creatinine 26 and 1.68, they were 22 and 1.42 yesterday. Yesterday's labs, LFTs were normal. His BNP was 66. ASSESSMENT: Chronic anemia with microcytosis, likely iron deficiency. It is very likely there is some chronic component to this as his hemoglobin has been low dating back to 2014, different labs at this hospital. He has had some renal insufficiency and diabetes, which probably contributed, but more recently apparently he has had a transfusion about a month ago at an outside hospital and he has had a transfusion here at this hospital this admission, 2 units, 1 yesterday, 1 today. He has no signs of acute hemorrhage, but has been on Plavix and aspirin and NSAIDs and he is at high risk for ulcer disease. He has been on no ulcer prophylaxis apparently. Compounding this is a history of possible Crohn disease although there are no symptoms of disease for many years and he had a normal colonoscopy with normal ileoscopy in 2016 in our office. He reports he has had no endoscopy since that time. RECOMMENDATIONS: 1. We will obtain cardiac clearance. Apparently, he is going to have endoscopy as an outpatient in the [facility] and his recreation worker has given cardiac clearance to another gastrologist there, but they never really schedule any thing as they are waiting for some old records per the patient's report, mainly related to his previous GI endoscopies. 2. We will tentatively set up him for an EGD and colonoscopy tomorrow. We will start him on ulcer prophylaxis with PPI. Risks, benefits, and possible complications of endoscopy including risk of cardiac complications, perforation, bleeding, reaction to medication, and aspiration were discussed with the patient. We will see if we can get his recent cardiac records for [facility]. If we cannot, we will need to have a cardiac evaluation or at least some type of preoperative cardiac evaluation here in light of the fact that he has had a defibrillator placed recently and had bypass surgery just 5 months ago. Job ID: [id number]
--- NOTE | 2019-03-25 22:34 | CON ---
DATE OF CONSULTATION: 03/25/2019 INDICATION FOR CONSULTATION: A 73-year-old gentleman, who needs to undergo an EGD who has a significant past medical history. He underwent bypass surgery in November of this year. He also, about a month ago had a pacemaker insertion. He has been doing cardiac rehab and knows he was getting increasing shortness of breath and yesterday, he became so short of breath he felt he could walk across the room. He did receive a transfusion a couple of weeks ago after having been found to be anemic. He was scheduled to have an outpatient EGD, but apparently could not get there due to scheduling and has been placed too far out and he presented yesterday after he his shortness of breath became worse. He denies any chest pain. He has had no new cardiac complaints. He does have multiple risk factors for heart disease, but otherwise after bypass surgery, he has been doing quite well. That was performed here in November by Dr. Linares. PAST MEDICAL HISTORY: Significant for coronary artery disease, bypass surgery. He has had pacemaker insertion. He has hypertension, diabetes, hypercholesterolemia. He has had a nephrectomy, he has chronic kidney disease, history of Crohn disease, COPD, anxiety, depression, sleep apnea and restless legs syndrome. PAST SURGICAL HISTORY: His other operations other than bypass surgery include left total knee replacement. He had the prosthesis removed in October of 2015 due to infection. He had knee replacement in January of 2016. He has had cholecystectomy. He has had a right nephrectomy, left shoulder surgery, left femur surgery. MEDICATIONS: Include: 1. Atorvastatin. 2. Ropinirole. 3. Levemir. 4. Humira Pen. 5. Cyclobenzaprine. 6. Trazodone. 7. Tamsulosin. 8. Aspirin. 9. Coreg. 10. Gabapentin. 11. Iron tablets. 12. Please note he also takes NovoLog insulin and Zyrtec. FAMILY HISTORY: Noncontributory. REVIEW OF SYSTEMS: A 12-point review of systems was unremarkable except what was noted in history of present illness. He has been doing very well after his bypass surgery and doing rehab until he became more anemic. PHYSICAL EXAMINATION: GENERAL: Reveals a well-developed, well-nourished gentleman, who is in no acute distress. He is alert. He is oriented. VITAL SIGNS: Stable. His blood pressure is 131/60, heart rate is 80s and shows a sinus rhythm, actually he has a paced rhythm. He has atrial pacing and ventricular tracking. Occasionally, he has a ventricular pacing on the EKG. When he was admitted, he had sinus rhythm with underlying ventricular pacing. He is afebrile. Heart rate is 80 to 100, respiratory rate was 16 to 20. HEENT: Shows the head to be normocephalic and atraumatic. Carotid pulses are present. There were no significant bruits noted. CHEST: Clear to auscultation. CARDIOVASCULAR: Revealed a regular rhythm. He has a well-healed surgical incision after median sternotomy. He also has a well-healed surgical incision in the left infraclavicular area after a pacemaker insertion. ABDOMEN: Soft, nontender, and somewhat obese. Positive bowel sounds are present. EXTREMITIES: Show no clubbing, cyanosis, or edema. Pedal pulses are present. NEUROLOGICAL: The patient appears to be fully intact. LABORATORY DATA: Shows a hemoglobin of 10.5 and I believe he was given a transfusion. He has had 2 units of packed red blood cells infused and he is feeling better than when he was admitted. His creatinine is 1.68, BUN is 26, blood sugar is 382. Cardiac enzymes are unremarkable. EKG shows ventricular pacing. IMPRESSION AND PLAN: 1. An elderly gentleman, 73 years old, who has history of coronary artery disease, which appears to be stable after bypass surgery earlier this year. 2. History of pacemaker insertion. It appears that he has a Bi-V pacemaker. He originally thought he had a defibrillator placed, but this, by chest x-ray, appears to be most likely a biventricular pacemaker. It is difficult to fully visualize this as the leads on the chest x-ray is under exposed. 3. History of gastrointestinal bleed, uncertain as to the etiology of this. He may have underlying ulcerations. He wants to find out the etiology of his bleeding and hopefully, this can be corrected. He will undergo EGD tomorrow. He should be a reasonable candidate to proceed. I do not have any indication that he has a cardiomyopathy. He did have a severe decrease in left ventricular systolic function. Ejection fraction was 20%-25% and he certainly may have a defibrillator, but I cannot determine that by evaluation of the chest x-ray. At this time, I believe the patient would be a reasonable candidate to undergo an EGD. He does have either a biventricular ventricular pacemaker or he has a defibrillator. We will ask for a repeat chest x-ray to evaluate the distal leads or try to get records from his prior MD to see where the pacemaker was inserted to see whether or not he has a defibrillator or biventricular device before as he is relatively asymptomatic as far as his cardiac status is concerned and would advise that he undergo his EEG without further delay. Also on the CT of the chest, apparently he had a large thyroid mass. This will also need to be evaluated. 4. I have reviewed his medications and would agree with the present management of the patient. We will continue to follow the patient with you. Further recommendations will be by Dr. Tran when he visits with the patient tomorrow. Job ID: [id number] MTDD
[2019-03-26 06:19] LABS: #Basophils 0.1 thou/uL (0.0-0.2); #Eosinphils 0.2 thou/uL (0.0-0.7); #Lymphocytes 3.6 thou/uL (1.20-3.40); #Monocytes 0.8 thou/uL (0.11-0.59); #Neutrophils 8.3 thou/uL (1.40-6.50); %Eosinophils 1.3 % (0.0-10.0); %Lymphocytes 27.7 % (21.0-51.0); %Monocytes 5.9 % (0.0-10.0); %Neutrophils 64.2 % (42.0-75.0); Hemoglobin 9.8 g/dL (14.0-18.0); Mean Corpuscular HGB CONC 31.3 g/dL (32.0-36.0); Mean Corpuscular Hemoglobin 24.7 pg (27.0-31.0); Mean Platelet Volume 11.7 fL (7.4-10.4); Platelet Count 229 thou/uL (130-400); RBC Distribution Width 19.7 % (11.5-14.5); Red Blood Cell (RBC) Count 3.96 mill/uL (4.70-6.10); White Blood Cell (WBC) Count 12.9 thou/uL (4.8-10.8)
[2019-03-26 06:23] LABS: Anion Gap 16 mmol/L (10-20); BUN (Urea Nitrogen) 22 mg/dL (8.4-25.7); Calc. Creatinine Clearance 79 mL/min (70-130); Calcium 8.4 mg/dL (7.8-10.44); Carbon Dioxide 19 mmol/L (23-31); Chloride 107 mmol/L (98-107); Estimated GFR-MDRD 53; Glucose 163 mg/dL (83-110); Potassium 3.8 mmol/L (3.5-5.1); Sodium 138 mmol/L (136-145)
--- NOTE | 2019-03-26 06:28 | PDOC.FM ---
- Subjective Subjective: Pt denies abdominal pain, chest pain, sob, or other complaints. He reports being hungry. - Objective MAR Reviewed: Yes Vital Signs & Weight: Vital Signs (12 hours) Temp Pulse Resp BP BP Pulse Ox 03/26/19 05:42 94 L 03/26/19 04:45 98.8 F 85 16 136/61 97 03/25/19 23:43 62 20 120/56 L 94 L 03/25/19 19:16 98.0 F 79 16 138/65 98 Weight Weight 109.361 kg I&O: 03/24/19 03/25/19 03/26/19 06:59 06:59 06:59 Intake Total 1180 Output Total 1675 600 Balance -495 -600 Result Diagrams: 03/26/19 04:58 03/26/19 04:58 Phys Exam - Physical Examination Constitutional: NAD HEENT: moist MMs Neck: no JVD Respiratory: no wheezing, no rales, clear to auscultation bilateral Cardiovascular: RRR, no significant murmur, no rub Gastrointestinal: soft, non-tender, no distention, positive bowel sounds Musculoskeletal: no edema, pulses present Neurological: moves all 4 limbs Psychiatric: A&O x 3 Skin: cap refill <2 seconds Dx/Plan (1) HFrEF (heart failure with reduced ejection fraction) Code(s): I50.20 - UNSPECIFIED SYSTOLIC (CONGESTIVE) HEART FAILURE Status: Acute (2) Acute kidney injury superimposed on CKD Code(s): N17.9 - ACUTE KIDNEY FAILURE, UNSPECIFIED; N18.9 - CHRONIC KIDNEY DISEASE, UNSPECIFIED Status: Acute (3) RLS (restless legs syndrome) Status: Chronic (4) T2DM (type 2 diabetes mellitus) Status: Chronic - Plan Plan: This is a 73 yo male with a pmh of HTN, DM2, recent pacemaker placement, HFrEF, self reported crohns disease Symptomatic anemia -S/p 2 units -Initial Hgb 7.9, 10.5 s/p 2 units, 9.8 this AM -Darker stool, melana vs Iron -Consult GI for evaluation -FOBT positive here -Cardiology reports pt is a candidate for EGD, will likely be done today -NPO now Hx of Crohns per patient -Sounds more like an ischemic event leading to bowel disease, pt reports Humira GRACE on CKD -Baseline cr appears 1.15 -Improving, Cr 1.33 HFrEF -Echo on 11/21/18 shows EF of 20-25% with E/A reversal suggestive of diastolic dysfunction -Strict I&Os -BNP 66 -Monitor for fluid overload with blood products Restless leg syndrome -Continue home meds 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 Louis I agree with the History, Examination, Assessment and Plan documented above with any addition or exceptions noted below. S/p Endoscopy this am with erosive gastritis see official note per Dr Jennings patient is ok for dismissal this pm counseled to discontinue NSAIDS. Patient with fragmented care he desires for outpt GI f/u here.
--- NOTE | 2019-03-26 07:06 | EKG ---
Test Reason : Blood Pressure : / mmHG Vent. Rate : 084 BPM Atrial Rate : 084 BPM P-R Int : 182 ms QRS Dur : 146 ms QT Int : 448 ms P-R-T Axes : 069 068 -59 degrees QTc Int : 529 ms Electronic ventricular pacemaker When compared with ECG of 16-NOV-2018 12:46, Electronic ventricular pacemaker has replaced Sinus rhythm Confirmed by DR. Ez JIMÉNEZ ([id number]) on 03/26/2019 7:06:30 AM Referred By: KIM Confirmed By:DR. Ez JIMÉNEZ
[2019-03-26] MEDS: Insulin Glargine 30 UNITS in Pre-Filled Syringe SC SCH (08:20)
[2019-03-26] MEDS: Multivitamin W/ Minerals 1 TAB PO SCH (08:20)
[2019-03-26] MEDS: Loratadine 10 MG TAB PO SCH (08:20)
[2019-03-26 08:34] LABS: Burr Cells SLIGHT = 2-5 cells (100X) (0-1/hpf); Hypochromia SLIGHT = 6-15 cells (100X) (0-5/hpf); MDiff Complete? YES; Platelet Morphology Comment Appears Adequate; Polychromasia MODERATE = 3-4 cells (100X) (0-2/hpf)
[2019-03-26] MEDS ORDERED: PROPOFOL 200 MG/20 ML VIAL ONE (10:22)
[2019-03-26] MEDS ORDERED: Lidocaine 1% PF 5 ML VIAL ONE (10:22)
[2019-03-26] MEDS ORDERED: Promethazine HCl 25 MG/ML VIAL IM PRN (11:00)
[2019-03-26] MEDS ORDERED: Promethazine HCl 25 MG/ML VIAL SLOW IVP PRN (11:00)
[2019-03-26] MEDS ORDERED: Ondansetron HCl/PF 4 MG/2 ML Vial IVP PRN (11:00)
[2019-03-26] MEDS: Aspirin 81 mg Enteric Coated Tablet PO SCH (11:56)
[2019-03-26] MEDS: Carvedilol 3.125 MG TAB PO SCH (11:56)
[2019-03-26] MEDS: Tamsulosin HCl 0.4 MG CAP PO SCH (11:56)
[2019-03-26] MEDS: Sacubitril 24.5 MG/Valsartan 25.5 MG TABLET PO SCH (11:56)
[2019-03-26] MEDS: Pantoprazole 40 MG VIAL IVP SCH (11:57)
[2019-03-26 12:45] VITALS: BP 140/69; TEMP 98.2
--- NOTE | 2019-03-26 12:56 | OP ---
DATE OF PROCEDURE: 03/26/2019 PROCEDURES PERFORMED: Esophagogastroduodenoscopy with biopsy and colonoscopy. PREOPERATIVE DIAGNOSES: 1. Iron deficiency anemia and reportedly heme-positive stool requiring outpatient transfusions in [place] and transfusions here. 2. Chronic antiplatelet therapy use. 3. Recent chronic nonsteroidal anti-inflammatory drugs use. ANESTHESIA: TIVA. POSTOPERATIVE DIAGNOSES: 1. Gastritis in the antrum, erosive, consistent with nonsteroidal anti-inflammatory drugs gastritis. Differential diagnosis includes include Crohn's that would favor nonsteroidal anti-inflammatory drugs gastritis, biopsied. Otherwise normal esophagogastroduodenoscopy. 2. Colonoscopy normal. 3. He has bland-appearing ileal stricture with one small erosion at about 30 cm proximal to the ileocecal valve. This is consistent with history of Crohn's. RECOMMENDATIONS: 1. PPIs. 2. Avoid all NSAIDs. 3. He can resume his anticoagulation. If his hemoglobin continue to drop, then he will probably need to stop his anticoagulation. 4. Follow up with primary GI. Apparently, he has been seeing them at the [place]. PROCEDURE IN DETAIL: The patient was informed of the risks, benefits, and possible complications of endoscopy including perforation, reaction to medication, and aspiration, informed consent was obtained. The patient was brought to endoscopy suite, where he was sedated in gradual fashion. Once he was comfortable, a bite block was placed inside the orifice. The endoscope was advanced through the esophagus, stomach and second and third portions of the duodenum slowly removed. There was good visualization of the mucosa. The esophagus was normal in appearance. The stomach was normal proximally. Retroflexed views were normal proximally. Distally in the antrum, there were multiple small erosions with no stigmata of recent bleeding. These were chronic NSAID erosions. Biopsies were taken as he did have a history of Crohn disease remotely. The scope was advanced into the duodenum and second and third portions, and these were normal with no signs or stigmata of bleeding or lesions. The scope was removed. The patient was turned to the room and rectal examination was performed, which was normal. There was no evidence of perianal disease. The scope was then advanced to the colon and the cecum, which was identified by the ileocecal valve and appendiceal orifice. The terminal ileum was identified being normal, but at a distance of about 25 to 30 cm from the ileocecal valve, he had a small bland-appearing stricture with small aphthous erosions on it. Beyond this, more proximally, it seemed that the bowel appeared normal. We could not advance beyond the stricture. There was no other evidence of disease in the ileum. The scope was then brought back into the cecum and then slowly removed through remainder of the colon, which was normal. Retroflexed views normal. The scope was removed. The patient tolerated the procedure well. There were no complications. Job ID: [id number]
--- NOTE | 2019-03-29 08:13 | CON ---
DATE OF CONSULTATION: 03/25/2019 ADDENDUM: FINAL ASSESSMENT AND PLAN: The patient was asked to be seen due to preop clearance for EGD. He can proceed with the EGD from a cardiac standpoint. He should be stable for the EGD. He does have a biventricular AICD which was placed earlier this year and the function appears to be normal. Job ID: [id number]
== END 2019-03-26 14:10 | disposition home or self-care (01) ==
LOC: ERS 16:19 → 2SW 21:30
PROVIDERS: ADMIT Family Medicine; ATTEND Family Medicine
PROC: 0DB78ZX Excision of Stomach, Pylorus, Via Natural or Artificial Opening Endoscopic, Diagnostic (ICD-10-PCS; principal; 2019-03-26)
PROC: 0DJD8ZZ Inspection of Lower Intestinal Tract, Via Natural or Artificial Opening Endoscopic (ICD-10-PCS; 2019-03-26)
DX: D50.9 Iron deficiency anemia, unspecified (principal); K31.89 Other diseases of stomach and duodenum; K29.50 Unspecified chronic gastritis without bleeding; K25.7 Chronic gastric ulcer without hemorrhage or perforation; T39.395A Adverse effect of other nonsteroidal anti-inflammatory drugs [NSAID], initial encounter; K56.699 Other intestinal obstruction unspecified as to partial versus complete obstruction; E11.42 Type 2 diabetes mellitus with diabetic polyneuropathy; G25.81 Restless legs syndrome; E78.5 Hyperlipidemia, unspecified; I13.0 Hypertensive heart and chronic kidney disease with heart failure and stage 1 through stage 4 chronic kidney disease, or unspecified chronic kidney disease; E11.22 Type 2 diabetes mellitus with diabetic chronic kidney disease; N18.9 Chronic kidney disease, unspecified; I50.21 Acute systolic (congestive) heart failure; M19.90 Unspecified osteoarthritis, unspecified site; F41.9 Anxiety disorder, unspecified; F32.9 Major depressive disorder, single episode, unspecified; K50.90 Crohn's disease, unspecified, without complications; Z87.891 Personal history of nicotine dependence; Z79.02 Long term (current) use of antithrombotics/antiplatelets; Z79.4 Long term (current) use of insulin; Z79.899 Other long term (current) drug therapy; Z88.2 Allergy status to sulfonamides; Z95.810 Presence of automatic (implantable) cardiac defibrillator; Z95.1 Presence of aortocoronary bypass graft
CPT/HCPCS: 36415; 36416; 36430; 80048; 82274; 85025; 86850; 86900; 86901; 88305; 88312; 93005; 93010; 94760; 96374; 96375; 96376; C9113; G0378; J1825; J1940; J2001; J2704; J2930; P9016

== ENCOUNTER 2019-04-01 22:53 | Emergency (ER) | payer MEDICARE ==
[2019-04-01] MEDS ORDERED: Dexamethasone 10 MG/ML VIAL ONE (23:53)
[2019-04-01] MEDS ORDERED: diphenhydrAMINE 25 MG CAP ONE (23:53)
--- NOTE | 2019-04-02 08:30 | CT ---
PRELIMINARY REPORT/[facility]/EMERGENCY AFTER HOURS PROCEDURE: EXAM: CT Angiography Chest With Contrast EXAM DATE/TIME: 04/02/2019 1:37 AM CLINICAL HISTORY: 73 years old, male; Abnormal findings; Other: Dvt of lue; Patient HX: Er 8. Previous in pacs. 73 y/o m presents to ED via transfer from [facility] C/O lue pain. PT was prompted to go to other ED for ev aluation when his daughter made him aware of swelling to lue after PT had come inside from performing yardwork. PT also notes a few sites to lue prior to today similar to insect bites, with pu rulent discharge when PT expressed the sites. TECHNIQUE: Imaging protocol: Axial computed tomographic angiography images of the chest with intravenous contras t using CT angiography protocol. Coronal and sagittal reformatted images were created and reviewed. 3 D rendering: MIP reconstructed images were created and reviewed. COMPARISON: No relevant prior studies available. FINDINGS: Pulmonary arteries: Normal. No pulmonary emboli. Aorta: Normal. No aortic aneurysm. No aortic dissection. Great vessels off aortic arch: No discernible thrombosis of the left subclavian vein on CT. Contrast opacification is adequate. Finding of proximal subclavian venous thrombosis on ultrasound may be seco ndary to artifact. Thyroid: Left lobe of the thyroid gland is absent. Enlargement of the right lobe of the thyroid gland to 7 cm axial, likely with multiple nodules; however, evaluation is limited by streak artifact. Lungs: Lungs are clear allowing for expiratory phase imaging. Pleural space: Normal. No pneumothorax. No pleural effusion. Heart: Normal. No cardiomegaly. No pericardial effusion. Mediastinum: Esophagus is unremarkable. Spleen: Splenomegaly. Kidneys and ureters: Incidental left renal cyst. Lymph nodes: Unremarkable. No enlarged lymph nodes. Bones/joints: Unremarkable. No acute fracture. Soft tissues: Unremarkable. IMPRESSION: 1. Splenomegaly. 2. Left lobe of the thyroid gland is absent. Enlargement of the right lobe of the thyroid gland to 7 cm axial, likely with multiple nodules; however, evaluation is limited by streak artifact. 3. No discernible thrombosis of the left subclavian vein on CT. Contrast opacification is adequate. F inding of proximal subclavian venous thrombosis on ultrasound may be secondary to artifact. Thank you for allowing us to participate in the care of your patient. Dictated and Authenticated by: Jj Calvillo MD 04/02/2019 2:11 AM Central Time ([place] & [place]) FINAL REPORT CT ARTERIOGRAM CHEST WITH IV CONTRAST AND 3D MIP IMAGING: DATE: 04/02/2019. TIME: Performed on an emergency basis at 0140 hours. HISTORY: Chest pain. Dyspnea. COMPARISON: 03/24/2019. FINDINGS: Agree with the preliminary report by Dr. Calvillo from [facility]. No CT evidence of pulmonary embolus. Bovine origin of the great vessels at the aortic arch. No evidence of left subclavian thr ombosis. Right thyroid lobe remains enlarged. POS: TPC
--- NOTE | 2019-04-02 08:53 | ULT ---
PRELIMINARY REPORT/[facility]/EMERGENCY AFTER HOURS PROCEDURE: Addendum created by Jj Calvillo MD on 04/02/2019 1:12 AM Central Time ([place] & [place]) Findings discu ssed with VIVIENNE STUART MD at time of interpretation. Initial Report created on 04/02/2019 1:07 AM Ce ntral Time ([place] & [place]) EXAM: US Duplex Left Upper Extremity Veins, Limited EXAM DATE/TIME: 04/01/2019 11:54 PM CLINICAL HISTORY: 73 years old, male; Pain and signs and symptoms; Edema, localized; Upper extremity, left; Leg, upper and leg, lower; Prior surgery; Surgery date: 1-6 months; Surgery type: Defibrillator implant 02/2019, lt arm swelling/pain after mowing today TECHNIQUE: Imaging protocol: Real-time Duplex ultrasound of the Left Upper Extremity with 2-D meza scale, color Doppler flow and spectral waveform analysis. Limited exam focused on the left upper extremity veins. COMPARISON: No relevant prior studies available. FINDINGS: Left deep veins: Partially occlusive thrombosis of the proximal left subclavian vein and the distal l eft brachial vein. Remaining deep veins of the left upper extremity are patent. Left superficial veins: Unremarkable. Visualized cephalic and basilic veins are patent without thromb us. Soft tissues: Unremarkable. 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 Thank you for allowing us to participate in the care of your patient. Dictated and Authenticated by: Jj Calvillo MD 04/02/2019 1:07 AM Central Time ([place] & [place]) FINAL REPORT The final report is in agreement with the above-provided preliminary interpretation. Venous thrombosis of the subclavian and brachial veins of the left lower extremity are present. There is soft tissue edema. POS: NWK
== END 2019-04-02 02:27 | disposition home or self-care (01) ==
LOC: ERS 22:53
DX: I82.622 Acute embolism and thrombosis of deep veins of left upper extremity (principal); D64.9 Anemia, unspecified; E11.9 Type 2 diabetes mellitus without complications; E78.5 Hyperlipidemia, unspecified; F32.9 Major depressive disorder, single episode, unspecified; F41.9 Anxiety disorder, unspecified; I10 Essential (primary) hypertension; K50.90 Crohn's disease, unspecified, without complications; Z87.891 Personal history of nicotine dependence; Z79.4 Long term (current) use of insulin; Z79.82 Long term (current) use of aspirin; Z79.899 Other long term (current) drug therapy
CPT/HCPCS: 71275; J1100; Q0163

== ENCOUNTER 2019-04-18 11:53 | Inpatient (IN) | payer MEDICARE ==
[2019-04-18] MEDS ORDERED: Pantoprazole 40 MG VIAL ONE (12:09)
--- NOTE | 2019-04-18 12:14 | RAD ---
XR Chest 1 View Portable History: Hypotension Comparison: Radiograph March 24, 2019 Findings: Cardiac device is similar. Chronic increased extrapleural fat. No pneumothorax. No effusion. No airspace consolidation Impression: No acute intrathoracic abnormality. Chronic findings.
[2019-04-18 12:35] LABS: #Basophils 0.1 thou/uL (0.0-0.2); #Eosinphils 0.2 thou/uL (0.0-0.7); #Lymphocytes 1.7 thou/uL (1.20-3.40); #Monocytes 0.5 thou/uL (0.11-0.59); #Neutrophils 4.8 thou/uL (1.40-6.50); %Basophils 0.9 % (0.0-1.0); %Eosinophils 3.2 % (0.0-10.0); %Lymphocytes 23.2 % (21.0-51.0); %Monocytes 6.6 % (0.0-10.0); %Neutrophils 66.1 % (42.0-75.0); Hemoglobin 8.8 g/dL (14.0-18.0); Mean Corpuscular HGB CONC 30.5 g/dL (32.0-36.0); Mean Corpuscular Hemoglobin 24.8 pg (27.0-31.0); Mean Corpuscular Volume 81.3 fL (78.0-98.0); Mean Platelet Volume 11.7 fL (7.4-10.4); Platelet Count 145 thou/uL (130-400); Red Blood Cell (RBC) Count 3.53 mill/uL (4.70-6.10); White Blood Cell (WBC) Count 7.3 thou/uL (4.8-10.8)
[2019-04-18 12:51] LABS: INR-International Normal Ratio 1.2; Prothrombin Time 15.4 SEC (12.0-14.7)
[2019-04-18 12:57] LABS: PTT 21.2 SEC (22.9-36.1)
[2019-04-18 12:59] LABS: ALT (SGPT) 19 U/L (8-55); AST (SGOT) 27 U/L (5-34); Albumin 3.7 g/dL (3.4-4.8); Alkaline Phosphatase 86 U/L (40-150); Anion Gap 15 mmol/L (10-20); BUN (Urea Nitrogen) 17 mg/dL (8.4-25.7); Bilirubin, Total 0.3 mg/dL (0.2-1.2); CK (CPK) 27 U/L (30-200); Calc. Creatinine Clearance 0 mL/min (70-130); Calcium 8.2 mg/dL (7.8-10.44); Carbon Dioxide 19 mmol/L (23-31); Chloride 108 mmol/L (98-107); Estimated GFR-MDRD 47; Globulin 2.9 g/dL (2.4-3.5); Glucose 168 mg/dL (83-110); Lipase 14 U/L (8-78); Potassium 4.2 mmol/L (3.5-5.1); Protein, Total 6.6 g/dL (5.8-8.1); Sodium 138 mmol/L (136-145)
--- NOTE | 2019-04-18 14:21 | PDOC.FPRHP ---
- History of Present Illness Chief Complaint: lightheaded History of Present Illness: 73 yo M with PMHx stomach ulcerations and symptomatic anemia who presents after getting lightheaded at [employer]. He thought her had given himself too much insulin , EMS was called and his BG was reportedly fine but BP was very low. He has otherwise been feeling pretty well. PCP: [facility] Course: 2L fluid, 2 units pRBC - Allergies/Adverse Reactions Allergies Allergy/AdvReac Type Severity Reaction Status Date / Time Sulfa (Sulfonamide Allergy Verified 03/24/19 22:28 Antibiotics) - Home Medications Medication Instructions Recorded Confirmed Type Insulin Aspart [NovoLOG Vial] 20 unit SC TID PRN 12/14/14 04/18/19 History Insulin Detemir 100 UNITS/ML 30 units SC BID 12/14/14 04/18/19 History [Levemir] traMADol HCl [Tramadol HCl] 50 mg PO Q4H PRN 12/14/14 04/18/19 History Cyclobenzaprine [Flexeril] 10 mg PO TID PRN 11/05/15 04/18/19 History traZODone HCl 100 tab PO HS 11/05/15 04/18/19 History rOPINIRole HCl [Ropinirole HCl] 2 mg PO HS 11/09/15 04/18/19 History Ferrous Sulfate [Feosol] 325 mg PO QAM-WM #0 tab 03/09/16 04/18/19 Rx Loperamide HCl [Imodium] 2 mg PO ASDIR PRN 11/10/18 04/18/19 History Multivit-Min/FA/Lycopen/Lutein 1 each PO DAILY 11/10/18 04/18/19 History [Centrum Silver Tablet] Tamsulosin HCl 0.4 mg PO DAILY 11/10/18 04/18/19 History Atorvastatin Calcium [Lipitor] 40 mg PO HS #30 tab 11/22/18 04/18/19 Rx Aspirin [Ecotrin Regular Strength] 81 mg PO DAILY 03/24/19 04/18/19 History Carvedilol [Coreg] 3.125 mg PO BID 03/24/19 04/18/19 History Cetirizine HCl [Zyrtec] 10 mg PO DAILY 03/24/19 04/18/19 History Clopidogrel Bisulfate [Clopidogrel] 75 mg PO DAILY 03/24/19 04/18/19 History Gabapentin 600 mg PO HS 03/24/19 04/18/19 History Sacubitril/Valsartan [Entresto 24 1 each PO BID 03/24/19 04/18/19 History mg-26 mg Tablet] Pantoprazole [Protonix] 40 mg PO DAILY #30 tab 03/26/19 04/18/19 Rx - History PMHx: IDDM, gastric ulcers, restless leg syndrome, single kidney (CKD), Chron's disease, CHF, AICD/pacemaker in place, CAD (no stents) PSHx: Nephrectomy (benign growth), 4V CABG, AICD/pacemaker placement, knee surgery, cholecystectomy FHx: Dad with DM, Mother healthy (94) Social: Quit smoking almost 40 years ago (45 pk year history for 15 yrs prior to that), rare alcohol (1 glass scotch) use, no illegal drug use - Review of Systems General: denies: fever/chills, weight/appetite/sleep changes Eyes: denies: eye pain, vision changes ENT: denies: nasal congestion, rhinorrhea Respiratory: denies: cough, congestion Cardiovascular: denies: chest pain, palpitation Gastrointestinal: reports: nausea, vomiting. denies: diarrhea, constipation Genitourinary: denies: dysuria, polyuria Skin: denies: rashes, lesions Musculoskeletal: denies: pain, swelling Neurological: reports: weakness. denies: numbness, syncope - Vital signs BP: 142/73 HR: 78 RR: 100 Tmax: 99.5 Pox: 100% on RA Wt: 110kg - Physical Exam Constitutional: NAD, awake, alert and oriented HEENT: normocephalic and atraumatic, conjunctiva clear, MMM, oropharynx clear, other (conjunctival pallor) Neck: supple, trachea midline, no JVD Chest: no-tender to palpation, other (pacemaker in place in L chest) Heart: RRR, normal S1/S2, pulses present, no edema Lungs: CTAB, no respiratory distress Abdomen: soft, non-tender, bowel sounds present Musculoskeletal: normal structure, normal tone Neurological: no focal deficit Skin: no rash/lesions, other (pallor) Heme/Lymphatic: no petechia, other (rectal bleeding) Psychiatric: normal mood and affect, good judgment and insight, intact recent and remote memory FMR H&P: Results - Labs Result Diagrams: 04/18/19 12:09 04/18/19 12:09 Lab results: WBC 7.3 thou/uL (4.8-10.8) 04/18/19 12:09 Hgb 8.8 g/dL (14.0-18.0) L 04/18/19 12:09 Hct 28.7 % (42.0-52.0) L 04/18/19 12:09 MCV 81.3 fL (78.0-98.0) 04/18/19 12:09 Plt Count 145 thou/uL (130-400) 04/18/19 12:09 Neutrophils % 66.1 % (42.0-75.0) 04/18/19 12:09 Sodium 138 mmol/L (136-145) 04/18/19 12:09 Potassium 4.2 mmol/L (3.5-5.1) 04/18/19 12:09 Chloride 108 mmol/L (98-107) H 04/18/19 12:09 Carbon Dioxide 19 mmol/L (23-31) L 04/18/19 12:09 BUN 17 mg/dL (8.4-25.7) 04/18/19 12:09 Creatinine 1.48 mg/dL (0.7-1.3) H 04/18/19 12:09 Glucose 168 mg/dL (83-110) H 04/18/19 12:09 Calcium 8.2 mg/dL (7.8-10.44) 04/18/19 12:09 Total Bilirubin 0.3 mg/dL (0.2-1.2) 04/18/19 12:09 AST 27 U/L (5-34) 04/18/19 12:09 ALT 19 U/L (8-55) 04/18/19 12:09 Alkaline Phosphatase 86 U/L (40-150) 04/18/19 12:09 Creatine Kinase 27 U/L (30-200) L 04/18/19 12:09 B-Natriuretic Peptide 42.3 pg/mL (0-100) 04/18/19 12:09 Serum Total Protein 6.6 g/dL (5.8-8.1) 04/18/19 12:09 Albumin 3.7 g/dL (3.4-4.8) 04/18/19 12:09 Lipase 14 U/L (8-78) 04/18/19 12:09 - EKG Interpretation EKG: Rate (beats per minute): 80, atrial sensed ventricular paced rhythm, WA interval 178 ms QRS duration 150 ms. - Radiology Interpretation Chest x-ray Status: report reviewed by me Additional comment: Cardiac device. Chronic increased extrapleural fat. FMR H&P: A/P - Problem List (1) Anemia Current Visit: Yes Status: Acute Code(s): D64.9 - ANEMIA, UNSPECIFIED (2) GI bleed Current Visit: Yes Status: Acute Code(s): K92.2 - GASTROINTESTINAL HEMORRHAGE, UNSPECIFIED (3) CAD (coronary artery disease) Current Visit: No Status: Acute Code(s): I25.10 - ATHSCL HEART DISEASE OF [place] CORONARY ARTERY W/O ANG PCTRS (4) HFrEF (heart failure with reduced ejection fraction) Current Visit: No Status: Acute Code(s): I50.20 - UNSPECIFIED SYSTOLIC ( CONGESTIVE) HEART FAILURE (5) Left knee DJD Current Visit: No Status: Acute Code(s): M17.9 - OSTEOARTHRITIS OF KNEE, UNSPECIFIED (6) Microcytic anemia Current Visit: No Status: Acute Code(s): D50.9 - IRON DEFICIENCY ANEMIA, UNSPECIFIED (7) S/P CABG x 4 Current Visit: No Status: Acute (8) CKD (chronic kidney disease) Current Visit: No Status: Chronic Code(s): N18.9 - CHRONIC KIDNEY DISEASE, UNSPECIFIED (9) Crohns disease Current Visit: No Status: Chronic Code(s): K50.90 - CROHN'S DISEASE, UNSPECIFIED, WITHOUT COMPLICATIONS (10) Depression Current Visit: No Status: Chronic Code(s): F32.9 - MAJOR DEPRESSIVE DISORDER , SINGLE EPISODE, UNSPECIFIED (11) Diabetes Current Visit: No Status: Chronic Code(s): E11.9 - TYPE 2 DIABETES MELLITUS WITHOUT COMPLICATIONS Qualifiers: Diabetes mellitus type: type 2 Diabetes mellitus complication status: with hyperglycemia Qualified Code(s): E11.65 - Type 2 diabetes mellitus with hyperglycemia (12) HLD (hyperlipidemia) Current Visit: No Status: Chronic Code(s): E78.5 - HYPERLIPIDEMIA, UNSPECIFIED (13) HTN (hypertension) Current Visit: No Status: Chronic Code(s): I10 - ESSENTIAL (PRIMARY) HYPERTENSION Qualifiers: Hypertension type: essential hypertension Qualified Code(s): I10 - Essential (primary) hypertension (14) DENAE (obstructive sleep apnea) Current Visit: No Status: Chronic Code(s): G47.33 - OBSTRUCTIVE SLEEP APNEA (ADULT) (PEDIATRIC) (15) RLS (restless legs syndrome) Current Visit: No Status: Chronic - Plan 73yo male with pmh of Gastric erosions requiring transfusion presenting with symptomatic anemia Symptomatic anemia likely 2/2 GI bleed - Dizziness, SOB on exertion - Hgb 8.8 - s/p 2L in ED. Initially hypotensive but stable after fluid resuscitation - s/p 2U pRBCs in ED. H&H 4hrs post transfusion - GI, Dr Loyd consulted. Ordered tagged RBC scan - Clear liquid diet - Admit to medical DMII - Continue home insulin - SSI, hypoglycemic protocol, CC diet Crohns - Continue home meds - Reports it has been yrs since last flare HFrEF w/ AICD CAD - Continue home meds HLD - Continue home meds RLS - Continue home meds CKD - Cr 1.44, at baseline DVT ppx: SCDs Code Status: Chemical, compressions, shocks. No intubation [facility]CP: [facility] H&P: Upper Level - Pertinent history 73 yo M with PMHx gastric ulcers presents with cc of dizziness while at [employer]. Recent hospitalization for symptomatic anemia 2/2 gastric ulcers and possible Chron's flare. He is feeling much better after 2L of fluids, currently getting pRBCs. - Pertinent findings VSS, initially hypotensive CXR negative for acute process EKG paced, prolonged QTc Gen: awake, alert, oriented HEENT: NCAT, conjunctival pallor, trachea midline CV: RRR, no murmur, pacemaker in place RESP: CTAB ABD: soft, NTND, BS present EXT: no edema RECTAL per ERMD: dark red blood - Plan Date/Time: 04/18/19 1421 73 yo M with symptomatic anemia 2/2 suspected upper GI bleed 1. Symptomatic anemia likely 2/2 gastric ulcerations - VSS after 2L fluids - Will proceed with 2u pRBCs ordered in ED - Dr. Hinds consulted, recommends CLD and tagged RBC scan - Appreciate GI recs - Post-transfusion H&H Please see Dr. Mills's note for remainder of A/P I, Codi Hurtado MD, PGY-3, have evaluated this patient and agree with findings/ plan as outlined by auditor internal resident. Pertinent changes/additions are listed here.
[2019-04-18] MEDS ORDERED: Loperamide HCl 2 MG CAP PO PRN (16:27)
--- NOTE | 2019-04-18 19:42 | NM ---
NUCLEAR MEDICINE GI BLEEDING SCAN: 04/18/2019 HISTORY: 73-year-old male with GI bleeding. TECHNIQUE: 27.0 mCi technetium 99m-tagged erythrocytes injected IV. Anterior view dynamic scintigraphy of abdomen and pelvis for 90 minutes. FINDINGS: There is no evidence of active GI bleeding. IMPRESSION: Negative
[2019-04-18] MEDS ORDERED: Cyclobenzaprine 10 MG TAB PO PRN (21:00)
[2019-04-18] MEDS ORDERED: HumaLOG 300 UNITS/3 ML VIAL SC PRN (21:00)
[2019-04-18] MEDS ORDERED: Non-Formulary Item 1 EACH (Insulin Detemir 100 Units/Ml [Levemir] 30 UNITS) SC SCH (21:00)
[2019-04-18] MEDS: Atorvastatin Calcium 40 MG TAB PO SCH (21:15)
[2019-04-18] MEDS: Carvedilol 3.125 MG TAB PO SCH (21:16)
[2019-04-18] MEDS: Pantoprazole 40 MG VIAL IVP SCH (21:16)
[2019-04-18] MEDS: Gabapentin 300 MG CAP PO SCH (21:16)
[2019-04-18] MEDS: rOPINIRole HCl 1 MG TAB PO SCH (21:17)
[2019-04-18] MEDS: Sacubitril 24.5 MG/Valsartan 25.5 MG TABLET PO SCH (21:17)
[2019-04-18] MEDS: traZODone HCl 50 MG TAB PO SCH (21:17)
[2019-04-18] MEDS: Insulin Glargine 30 UNITS in Pre-Filled Syringe 1 EACH SC SCH (21:20)
[2019-04-18 22:18] VITALS: BMI 33.8
[2019-04-18 22:59] LABS: #Basophils 0.1 thou/uL (0.0-0.2); #Eosinphils 0.3 thou/uL (0.0-0.7); #Lymphocytes 2.2 thou/uL (1.20-3.40); #Monocytes 0.6 thou/uL (0.11-0.59); #Neutrophils 4.1 thou/uL (1.40-6.50); %Lymphocytes 29.9 % (21.0-51.0); %Monocytes 8.4 % (0.0-10.0); %Neutrophils 56.8 % (42.0-75.0); Hemoglobin 8.8 g/dL (14.0-18.0); Mean Corpuscular Hemoglobin 25.3 pg (27.0-31.0); Mean Corpuscular Volume 81.7 fL (78.0-98.0); Mean Platelet Volume 10.4 fL (7.4-10.4); Platelet Count 193 thou/uL (130-400); RBC Distribution Width 17.3 % (11.5-14.5); Red Blood Cell (RBC) Count 3.46 mill/uL (4.70-6.10); White Blood Cell (WBC) Count 7.2 thou/uL (4.8-10.8)
[2019-04-19 05:53] LABS: #Basophils 0.1 thou/uL (0.0-0.2); #Eosinphils 0.3 thou/uL (0.0-0.7); #Lymphocytes 1.9 thou/uL (1.20-3.40); #Monocytes 0.6 thou/uL (0.11-0.59); #Neutrophils 3.8 thou/uL (1.40-6.50); %Eosinophils 4.2 % (0.0-10.0); %Lymphocytes 28.7 % (21.0-51.0); %Monocytes 9.3 % (0.0-10.0); %Neutrophils 56.8 % (42.0-75.0); Hemoglobin 8.6 g/dL (14.0-18.0); Mean Corpuscular HGB CONC 30.8 g/dL (32.0-36.0); Mean Corpuscular Hemoglobin 25.2 pg (27.0-31.0); Mean Corpuscular Volume 81.8 fL (78.0-98.0); Mean Platelet Volume 10.7 fL (7.4-10.4); Platelet Count 193 thou/uL (130-400); RBC Distribution Width 17.7 % (11.5-14.5); White Blood Cell (WBC) Count 6.6 thou/uL (4.8-10.8)
[2019-04-19 06:04] LABS: Anion Gap 11 mmol/L (10-20); BUN (Urea Nitrogen) 14 mg/dL (8.4-25.7); Calc. Creatinine Clearance 79 mL/min (70-130); Calcium 8.2 mg/dL (7.8-10.44); Carbon Dioxide 21 mmol/L (23-31); Chloride 110 mmol/L (98-107); Estimated GFR-MDRD 53; Glucose 289 mg/dL (83-110); Potassium 4.3 mmol/L (3.5-5.1); Sodium 138 mmol/L (136-145)
[2019-04-19] MEDS: Carvedilol 3.125 MG TAB PO SCH ×2 (06:22→21:27)
[2019-04-19] MEDS ORDERED: Ketamine 50 MG/ML (10ML VIAL) ONE (08:24)
[2019-04-19] MEDS ORDERED: Midazolam HCl 2 mg/2 ml Vial ONE (08:27)
[2019-04-19] MEDS: Insulin Glargine 30 UNITS in Pre-Filled Syringe 1 EACH SC SCH ×2 (10:00→21:29)
[2019-04-19] MEDS: Pantoprazole 40 MG VIAL IVP SCH ×2 (10:01→21:29)
[2019-04-19] MEDS: Sacubitril 24.5 MG/Valsartan 25.5 MG TABLET PO SCH ×2 (10:01→21:27)
[2019-04-19] MEDS ORDERED: MD-Gastroview 120 ML BOT ONE (10:02)
--- NOTE | 2019-04-19 11:01 | PDOC.FM ---
- Subjective Subjective: Patient seen at bedside this morning resting comfortably. No new complaints. No acute events over night. Patient denies dizziness or palpitations. - Objective MAR Reviewed: Yes Vital Signs & Weight: Vital Signs (12 hours) Temp Pulse Resp BP Pulse Ox 04/19/19 09:33 98.1 F 79 16 145/79 H 93 L 04/19/19 08:00 95 04/19/19 07:17 97.9 F 82 20 108/63 95 04/19/19 03:58 98.0 F 90 18 119/69 93 L 04/19/19 00:00 98.1 F 93 18 113/70 95 Weight Weight 110 kg Result Diagrams: 04/19/19 05:29 04/19/19 05:29 Phys Exam - Physical Examination Constitutional: NAD HEENT: moist MMs Neck: no nodes Respiratory: clear to auscultation bilateral Cardiovascular: RRR, no significant murmur Gastrointestinal: soft, non-tender Musculoskeletal: no edema Neurological: non-focal, moves all 4 limbs Psychiatric: normal affect, A&O x 3 Skin: no rash Dx/Plan (1) Anemia Code(s): D64.9 - ANEMIA, UNSPECIFIED Status: Acute (2) GI bleed Code(s): K92.2 - GASTROINTESTINAL HEMORRHAGE, UNSPECIFIED Status: Acute (3) CAD (coronary artery disease) Code(s): I25.10 - ATHSCL HEART DISEASE OF [place] CORONARY ARTERY W/O ANG PCTRS Status: Acute (4) HFrEF (heart failure with reduced ejection fraction) Code(s): I50.20 - UNSPECIFIED SYSTOLIC (CONGESTIVE) HEART FAILURE Status: Acute (5) S/P CABG x 4 Status: Acute (6) CKD (chronic kidney disease) Code(s): N18.9 - CHRONIC KIDNEY DISEASE, UNSPECIFIED Status: Chronic (7) Crohns disease Code(s): K50.90 - CROHN'S DISEASE, UNSPECIFIED, WITHOUT COMPLICATIONS Status: Chronic - Plan Plan: 1. Symptomatic anemia - currently stable, s/p 1u PRBC - GI plans for EGD and small bowel follow through today to find possible source - tagged RBC study yesterday was negative - Will continue ASA per GI recommendation and continue PPI 2. DM2 - glucose reasonably well controlled, when he is restarted on a diet will restart home meds - accucheck achs 3. CAD - home meds, asa as above 4. HLD - home memds 5. CKD III - at baseline Dispo: patient doing well. Will continue to work to find source. Expect discharge 24-48 hours
--- NOTE | 2019-04-19 11:15 | CON ---
DATE OF CONSULTATION: 04/18/2019 REASON FOR CONSULTATION: History of black tarry stool, dizziness, and hypotension. HISTORY OF PRESENT ILLNESS: Mr. Vamsi Herndon is a very pleasant 73-year-old male, who has had bypass surgery in November of 2018. Subsequently, he has had AICD, pacemaker implant. The patient was apparently placed on Plavix, aspirin, naproxen, etc. The patient was hospitalized in March of 2019 because of iron-deficiency anemia. There is no history of overt GI bleeding at that time. No history of rectal bleeding, melena. The patient was hospitalized here in March of [address] Teodoro Jennings. He had an EGD and colonoscopy on 03/26/2019. The colonoscopy showed no pathology except for esophageal stricture and small erosion of the distal ileus. Otherwise, the mucosa appeared normal. The patient also had an EGD, which revealed no pathology except for some few tight small erosion of the gastric antrum. He was advised to stop taking the naproxen and also Plavix. He would take baby aspirin 81 mg once a day. He was transfused the last time when he was here. The patient tells me that recently he started having some black tarry stool every day. Unfortunately, he is also on iron supplement. I am really not very sure if the black tarry stool is from iron, not from intermittent bleeding. The patient was discharged today and he felt faint, dizzy, and had nausea, vomiting and he vomited one time. The vomiting was not bilious and was not having blood. He came to the ER because of the hypotension and history of black stools. The patient had 1 unit of packed RBCs. He felt slightly better. I advised him to have a stat GI bleeding scan which was done this afternoon. The GI bleeding scan shows no sign of active bleeding seen. Apparently, patient will be transfused at least 4 units for the last few weeks. At the present time, the patient feels fine. Does not feel dizzy. No abdominal pain. No nausea or vomiting anymore. He has normal stools. He tells me he has been losing weight. He lost about 60 pounds since the beginning of year after the bypass surgery. His past is interesting that he had insect bite or some injury into his left hand about 12 years ago and developed severe cellulitis, septic shock. He was found to have for several weeks. He received antibiotics and subsequently was sent home. He came back to the hospital several times with abdominal pain and severe constipation, almost like bowel obstruction. He tells me he was cleaned out and subsequently he was seen by Dr. Jarred Aragon in 2010. He had a colonoscopy and has had some ulcerations and was told to have Crohn's disease and was placed on Humira 40 once every 2 weeks. Prior to him placed on Humira, he has had no rectal bleeding. No diarrhea. He has more of what appears to be bowel obstruction. He tells me that following Humira, he never had anymore bowel problems. He has had no diarrhea and no abdominal pain. No fever or weight loss. He has no other relevant history. PAST MEDICAL HISTORY: 1. Insulin-dependent diabetes mellitus. 2. Restless legs syndrome. 3. Single kidney. 4. Crohn's disease in 2011 diagnosed. 5. Congestive heart failure. 6. Coronary artery disease, status post bypass graft. 7. AICD, pacemaker implanted recently. 8. EGD and colonoscopy in March of 2019. 9. Gastric erosions. ALLERGIES: SULFA. SOCIAL HISTORY: The patient does not smoke or drink alcohol. MEDICATIONS: List reviewed, which include; 1. Insulin. 2. Tramadol. 3. Cyclobenzaprine. 4. Trazodone. 5. Ropinirole. 6. Ferrous sulfate. 7. Loperamide. 8. Tamsulosin. 9. Atorvastatin. 10. Aspirin. 11. Carvedilol. 12. Cetrizine. 13. Gabapentin. 14. Sacubitril/Valsartan. The list says he is on clopidogrel, but says that he is not taking it anymore. PAST SURGICAL HISTORY: Includes nephrectomy for a benign growth, coronary artery bypass graft, knee surgery, cholecystectomy. He has had AICD and pacemaker implant. FAMILY HISTORY: Father, diabetes. Mother, healthy. His daughter had several cancers recently and had undergone hysterectomy at [facility]. REVIEW OF SYSTEMS: HEAD: No headache. No seizure disorder. EYES: No diplopia, no impaired vision. ENT: No ear pain, any discharge. No nose bleed. No sore throat. RESPIRATORY SYSTEM: No history of chronic cough, hemoptysis, or dyspnea. CARDIOVASCULAR SYSTEM: No chest pain. No palpitation. No dyspnea, orthopnea, PND. GASTROINTESTINAL: No abdominal pain, nausea, vomiting, but does have history of black tarry stool over the last 3 weeks. GENITOURINARY: No dysuria or hematuria. MUSCULOSKELETAL: Unremarkable. NEUROENDOCRINE: Unremarkable. PHYSICAL EXAMINATION: GENERAL: He is obese, appears very comfortable. VITAL SIGNS: He had temp max of 100 degrees in the ER, but now afebrile. Pulse is 78 and blood pressure 140/70. HEENT: Conjunctivae clear. NECK: Supple. No adenitis or thyromegaly noted. CARDIOVASCULAR SYSTEM: First and second heart sounds heard. LUNGS: Clear to auscultation. ABDOMEN: Soft. Abdomen is nontender. No organomegaly or masses. Bowel sounds normal. EXTREMITIES: Reveal no edema. CENTRAL NERVOUS SYSTEM: Grossly within normal limits. LABORATORY DATA: From today, CBC; WBC 7300, hemoglobin 8.8, hematocrit 28.7, platelet count 145,000, polymorphs 66, lymphocytes 23. Chem-7 is basically normal. His BUN is normal at 17, creatinine 1.48, glucose 168, calcium 8.2, bilirubin 0.3, AST 23, ALT 19, alkaline phosphatase 86, albumin 3.7. Lipase 14. His GI bleeding scan done today show no evidence of GI bleeding. IMPRESSION: 1. 73-year-old male with history of black tarry stool over the last week. He has mild anemia, but is not very severe to cause actually hypotension or dizziness. GI bleeding scan came back negative. 2. History of iron-deficiency anemia. Recent EGD showing gastric erosion and negative colonoscopy except for ileal stricture. 3. History of Crohn's disease since 2010 and has done well on Humira over the lost 8 years. 4. Obesity. 5. Hypertension. 6. Diabetes mellitus. 7. Hyperlipidemia. 8. Prostate hypertrophy. 9. Status post coronary artery bypass graft, November 2018. 10. Status post AICD and pacemaker placement. RECOMMENDATIONS: Heart healthy diet today and n.p.o. after midnight and we will plan for EGD tomorrow. This will be done by Dr. Aragon or one of his colleagues. Job ID: [id number]
--- NOTE | 2019-04-19 12:12 | RAD ---
Upper GI series with double contrast Small bowel follow-through series: DATE: 04/19/2019 HISTORY: 73-year-old male with GI bleeding and Crohn's disease. Status post endoscopy. TECHNIQUE: Operating Room Scheduler abdominal radiograph obtained. Upright administration of effervescent granules and thick liquid barium. Prone PIERRE straw administration of thin liquid barium. Additional barium mixed with Gastrografin. "Image save" fluoroscopic spot images. Overhead radiograph abdominal series to follow small intestine. FINDINGS: The esophagus has normal distensibility, but later develops multiple tertiary contractions, delaying emptying of the barium into the stomach. No definite fixed stricture identified. Suboptimal barium coating of stomach and duodenal bulb. No obvious mucosal lesion identified, but recommend correlation with findings on recent endoscopy. Small bowel transit time is normal. Most of the small bowel has normal caliber and fold pattern. However, there is a approximately 15 to 20 cm length of distal small intestine, probably the terminal ileum, which is conspicuously from adjacent small bowel loops, and is diffusely thin. IMPRESSION: 1. Abnormal distal ileal loop of bowel in the right lower quadrant, probably terminal ileum, which is consistent with terminal ileitis, Crohn's disease. 2. Presbyesophagus.
[2019-04-19] MEDS: Multivitamin W/ Minerals 1 TAB PO SCH (12:22)
[2019-04-19] MEDS: Ferrous Sulfate 325 MG TAB PO SCH (12:23)
[2019-04-19] MEDS: Loratadine 10 MG TAB PO SCH (12:23)
[2019-04-19] MEDS: Tamsulosin HCl 0.4 MG CAP PO SCH (12:23)
--- NOTE | 2019-04-19 12:58 | OP ---
DATE OF PROCEDURE: 04/19/2019 PROCEDURES PERFORMED: Esophagogastroduodenoscopy with biopsy. INDICATION FOR PROCEDURE: Symptomatic anemia. DESCRIPTION OF PROCEDURE: After the risks and benefits of the procedure were explained to the patient including risks of bleeding, infection, perforation, reactions to anesthesia, aspiration and/or pain, informed consent was obtained. The patient was then taken to the endoscopy suite, where deep sedation was administered via ketamine and anesthesia support. Once adequate sedation was achieved, the standard gastroscope was introduced into the mouth with intubation of the esophagus, stomach, and the proximal small intestines with the findings listed below. The patient tolerated the procedure well with no immediate perioperative complications. Upon conclusion of the procedure, all equipment was removed from the patient and he was transferred to PACU in satisfactory condition. FINDINGS: Esophagus: Normal-appearing mucosa was seen in the proximal, mid, and distal esophagus. There was no evidence of erosions, ulcerations, mass, lesions , or active/recent bleeding. Both the diaphragmatic pinch and GE junction were well seen at 46 cm past the incisors. Stomach: Increased mild mucosal erythema was seen throughout the entire stomach in the gastric cardia, fundus, body, greater curvature, antrum, and incisura. However, there were no associated erosions or ulcerations with this particular finding. Within the antrum, there was some edematous mucosa in the prepyloric region and extending into the pylorus itself, but again no evidence of ulcerations or active/recent bleeding. Biopsies were not taken during this evaluation due to the recent biopsies taken during the prior EGD on March 28, 2019. Duodenum: Multiple duodenal erosions were seen in the both the duodenal bulb and second portion of the duodenum. However, I did not see any further erosions extending into the third portion. Given the presence of these erosions and history of symptomatic anemia, multiple biopsies were taken for possible celiac sprue and placed in a specimen jar for evaluation. Otherwise, there was no overt ulcerations nor was there any evidence of active/recent bleeding. IMPRESSION: 1. Mild nonspecific gastropathy. 2. Multiple duodenal erosions concerning for nonsteroidal anti-inflammatory drug use versus possible celiac disease. RECOMMENDATIONS: 1. Would continue to trend H and H and transfuse as necessary to maintain H and H of 7/21. 2. Continue to monitor clinically for signs of active GI bleeding. 3. We will follow up on the biopsy results with further management guided by those results. 4. Would have the patient follow up in the GI Clinic as an outpatient for possible capsule endoscopy related to his symptomatic anemia. 5. Would attempt to avoid any NSAIDs; however, with this cardiac patient, I would recommend a PPI daily as part of a protective measure to protect the lining of the stomach/duodenum. Given his relatively stable H and H since admission, no evidence of overt GI bleeding, and normal colonoscopy during the previous admission, further endoscopy is not indicated. I would recommend the patient follow up in the GI Clinic within 1 to 2 weeks for further evaluation for this condition. We will sign off at this time. Please call with any questions. Job ID: [id number] MTDD
--- NOTE | 2019-04-19 13:59 | HP ---
ADDENDUM: Please see the note done by Dr. Olivares, for which I agree. The patient was seen, evaluated, discussed, and examined with the residents. HISTORY OF PRESENT ILLNESS: A 73-year-old gentleman, who apparently was just in the hospital about 3 to 4 weeks ago for symptomatic anemia and blood transfusion. At that time, it sounds like the scope showed erosions in the stomach and it sounds like he was sent on pantoprazole, but despite that he has been noticing melena. He is taking iron, but started feeling weaker and then started having symptomatic near syncope today. He is wondering if it was his diabetes leading to hypoglycemia, but his sugar was fine. Already getting units of blood in the ER. ALLERGIES: ALL PER THE RESIDENT'S HISTORY AND PHYSICAL FOR WHICH I AGREE. HOME MEDICATIONS: Per the resident's history and physical for which I agree. PAST MEDICAL HISTORY: Per the resident's history and physical for which I agree. PAST SURGICAL HISTORY: Per the resident's history and physical for which I agree. FAMILY HISTORY: Per the resident's history and physical for which I agree. SOCIAL HISTORY: Per the resident's history and physical for which I agree. REVIEW OF SYSTEMS: Per the resident's history and physical for which I agree. PHYSICAL EXAMINATION: VITAL SIGNS: Afebrile. Vital signs are stable currently. Blood pressure initially was apparently low when he initially came into the ER, but he is fine in the 110s/70s now in the room. GENERAL: Alert and orient x3. Appropriate. HEENT: Conjunctivae, not particularly pale. Anicteric. Moist mucosa. NECK: No lymphadenopathy, thyromegaly, or bruits. CHEST: Clear. HEART: Regular rate and rhythm without significant murmurs. ABDOMEN: Benign. EXTREMITIES: Show no edema. LABORATORY DATA: Initial blood workup is consistent with an iron-deficiency anemia, although the MCV is not too bad at 81. Hemoglobin is 8.8. Basic metabolic panel significant for sugar being high at 168 and creatinine 1.48. ASSESSMENT AND PLAN: 1. GI bleed, likely ulceration. 2. History of coronary artery disease including bypass surgery this year. 3. Crohn disease. 4. Congestive heart failure history, I believe it is a diastolic dysfunction, although maybe not as he has an AICD in place, but not sure what his ejection fraction is. Plan is to admit, continue 2 units of packed red blood cells, IV Protonix. GI is involved. They recommend doing a tagged red blood cell scan. We will continue all his home medicines otherwise including a sliding scale insulin as I am sure he is going to be n.p.o. after midnight. Otherwise, we will resume home medications and I believe if he becomes symptomatic, we can get GI to scope him, but for now, seems stable. Job ID: [id number]
--- NOTE | 2019-04-19 15:59 | PRG ---
DATE OF SERVICE: 04/19/2019 ADDENDUM: Please add this is an addendum to the note of Dr. Shakir Ware. Mr. Herndon is a very pleasant 73-year-old man, who evidently has had an occult GI bleed following CABG surgery several weeks ago. His hemoglobin slowly drops down in to the low 8 hemoglobin levels. He had a previous workup several days ago including a negative upper and lower endoscopy. It may be prudent to discuss with his science teacher the possibility of stopping his low-dose aspirin for several weeks to allow the PPI to do its job. Afterwards, he could be restarted with caution. Job ID: [id number]
[2019-04-19] MEDS: traZODone HCl 50 MG TAB PO SCH (21:28)
[2019-04-19] MEDS: rOPINIRole HCl 1 MG TAB PO SCH (21:28)
[2019-04-19] MEDS: Gabapentin 300 MG CAP PO SCH (21:28)
[2019-04-19] MEDS: Atorvastatin Calcium 40 MG TAB PO SCH (21:28)
[2019-04-20] MEDS: traMADol HCl 50 MG TAB PO PRN ×2 (00:19→14:27)
[2019-04-20 06:07] LABS: #Basophils 0.1 thou/uL (0.0-0.2); #Eosinphils 0.3 thou/uL (0.0-0.7); #Lymphocytes 2.6 thou/uL (1.20-3.40); #Monocytes 0.7 thou/uL (0.11-0.59); #Neutrophils 3.9 thou/uL (1.40-6.50); %Basophils 1.1 % (0.0-1.0); %Eosinophils 4.1 % (0.0-10.0); %Lymphocytes 34.3 % (21.0-51.0); %Monocytes 8.7 % (0.0-10.0); %Neutrophils 51.8 % (42.0-75.0); Hemoglobin 8.6 g/dL (14.0-18.0); Mean Corpuscular HGB CONC 31.5 g/dL (32.0-36.0); Mean Corpuscular Hemoglobin 25.8 pg (27.0-31.0); Mean Corpuscular Volume 81.8 fL (78.0-98.0); Mean Platelet Volume 10.6 fL (7.4-10.4); Platelet Count 201 thou/uL (130-400); RBC Distribution Width 17.9 % (11.5-14.5); Red Blood Cell (RBC) Count 3.35 mill/uL (4.70-6.10); White Blood Cell (WBC) Count 7.5 thou/uL (4.8-10.8)
[2019-04-20 06:24] LABS: Anion Gap 12 mmol/L (10-20); BUN (Urea Nitrogen) 11 mg/dL (8.4-25.7); Calc. Creatinine Clearance 79 mL/min (70-130); Calcium 8.6 mg/dL (7.8-10.44); Carbon Dioxide 24 mmol/L (23-31); Chloride 108 mmol/L (98-107); Estimated GFR-MDRD 53; Glucose 146 mg/dL (83-110); Potassium 4.2 mmol/L (3.5-5.1); Sodium 140 mmol/L (136-145)
[2019-04-20] MEDS: Carvedilol 3.125 MG TAB PO SCH (08:54)
[2019-04-20] MEDS: Tamsulosin HCl 0.4 MG CAP PO SCH (08:54)
[2019-04-20] MEDS: Multivitamin W/ Minerals 1 TAB PO SCH (08:54)
[2019-04-20] MEDS: Ferrous Sulfate 325 MG TAB PO SCH (08:54)
[2019-04-20] MEDS: Loratadine 10 MG TAB PO SCH (08:55)
[2019-04-20] MEDS: Pantoprazole 40 MG VIAL IVP SCH (08:55)
[2019-04-20] MEDS: Insulin Glargine 30 UNITS in Pre-Filled Syringe 1 EACH SC SCH (08:58)
[2019-04-20] MEDS: Sacubitril 24.5 MG/Valsartan 25.5 MG TABLET PO SCH (09:02)
--- NOTE | 2019-04-20 09:23 | PDOC.FM ---
- Subjective Subjective: Seen at bedside this morning resting comfortably. States that yesterday when he walked around he had more energy and felt better than he has in months. EGD yesterday did not find source of bleeding. SB follow through showed signs of Crohns. No acute events over night - Objective MAR Reviewed: Yes Vital Signs & Weight: Vital Signs (12 hours) Temp Pulse Resp BP Pulse Ox 04/20/19 07:25 98.4 F 75 18 107/63 93 L Weight Weight 110 kg I&O: 04/19/19 04/20/19 04/21/19 06:59 06:59 06:59 Intake Total 1780 Balance 1780 Result Diagrams: 04/20/19 05:37 04/20/19 05:37 Phys Exam - Physical Examination Constitutional: NAD HEENT: moist MMs Neck: no nodes Respiratory: clear to auscultation bilateral Cardiovascular: RRR, no significant murmur Gastrointestinal: soft, non-tender, no distention Musculoskeletal: no edema Neurological: moves all 4 limbs Psychiatric: normal affect, A&O x 3 Skin: no rash Dx/Plan (1) Anemia Code(s): D64.9 - ANEMIA, UNSPECIFIED Status: Acute (2) GI bleed Code(s): K92.2 - GASTROINTESTINAL HEMORRHAGE, UNSPECIFIED Status: Acute (3) CAD (coronary artery disease) Code(s): I25.10 - ATHSCL HEART DISEASE OF [place] CORONARY ARTERY W/O ANG PCTRS Status: Acute (4) HFrEF (heart failure with reduced ejection fraction) Code(s): I50.20 - UNSPECIFIED SYSTOLIC (CONGESTIVE) HEART FAILURE Status: Acute (5) S/P CABG x 4 Status: Acute (6) CKD (chronic kidney disease) Code(s): N18.9 - CHRONIC KIDNEY DISEASE, UNSPECIFIED Status: Chronic (7) Crohns disease Code(s): K50.90 - CROHN'S DISEASE, UNSPECIFIED, WITHOUT COMPLICATIONS Status: Chronic - Plan Plan: 1. Symptomatic anemia - currently stable and doing well, s/p 1u PRBC - GI has concern that this may be more chronic in nature an possibly related to Celiac's based on EGD findings yesterday. Path and TTG pending - tagged RBC study negative - Will continue ASA per GI recommendation and continue PPI 2. DM2 - glucose reasonably well controlled, when he is restarted on a diet will restart home meds - accucheck achs 3. CAD - home meds, asa as above 4. HLD - home memds 5. CKD III - at baseline Dispo: patient doing well. Patient will likely be ready to complete work up outpatient pending GI recommendations today or tomorrow. Addendum - Attending - Attending Attestation Date/Time: 04/20/19 1210 I personally evaluated the patient and discussed the management with Dr. Ware. I agree with the History, Examination, Assessment and Plan documented above with any addition or exceptions noted below.
[2019-04-20 18:30] VITALS: BP 133/76; TEMP 98.3
[2019-04-21 17:56] LABS: EliA Celiac New Method **** NEW METHOD ****; t-Transglutaminase (tTG) IgA 0.7 EliAU/mL (<7 Negative); t-Transglutaminase (tTG) IgG Less than 0.6 EliAU/mL (<7 Negative)
--- NOTE | 2019-04-22 02:28 | DIS ---
DATE OF ADMISSION: 04/18/2019 DATE OF DISCHARGE: 04/20/2019 ADMITTING ATTENDING: Alvin Pierre MD. DISCHARGE ATTENDING: Samuel Catherine MD. RESIDENT: Shakir Ware DO. CONSULTS: FOSTER James. PROCEDURES: Chest x-ray on 04/18; finding, no acute intrathoracic abnormality. Tagged red blood cell scan on 04/18, finding, no evidence of GI bleed. Upper GI and small bowel follow-through on 04/19, finding, abnormal distal ileal loop of bowel in the right lower quadrant, probably terminal ileum, which is consistent with terminal ileitis or Crohn disease and presbyesophagus. EGD on 04/[address] Marlow, finding, mild gastropathy and multiple duodenal erosions concerning for NSAID drug use or celiacs. DIAGNOSIS: Symptomatic anemia. SECONDARY DIAGNOSES: 1. Upper GI bleed. 2. Coronary artery disease. 3. Heart failure with reduced ejection fraction. 4. Left knee arthritis. 5. Microcytic anemia. 6. Chronic kidney disease. 7. Crohn disease. 8. Depression. 9. Diabetes. 10. Hyperlipidemia. 11. Hypertension. 12. Obstructive sleep apnea. 13. Restless legs syndrome. HOSPITAL COURSE: This is a 73-year-old male who was admitted with symptomatic anemia secondary to a suspected upper GI bleed. At home the patient had become lightheaded and he was initially concerned overdoing insulin. However, when EMS arrived, they found that he had a low blood pressure and was immediately given intravenous fluids, which improved his blood pressure and symptoms. Hemoglobin on admission was 8.8, but due to his symptoms, he was given 1 unit of packed red cells and hemoglobin remained stable throughout the course of the hospitalization. Of note, vital signs throughout the hospitalization also were stable. The patient was never tachycardic or hypotensive. He did have a history of concern for GI bleed and recently did have an upper and lower endoscopy which did not find a source of bleeding. Exhaustive workup in the inpatient setting did not reveal source of the anemia. However, at the time of discharge, the patient stated that he felt better than he had in a long time and was asymptomatic, walking around the halls unaided. Further outpatient workup was discussed and planned by GI with the possibility of a capsule endoscopy. The patient was discharged home with instructions to follow up with both PCP and GI for completion of outpatient workup. There was some concern for possible celiac disease identified on endoscopy. Biopsy results and TTG are pending at the time of discharge. DISCHARGE INSTRUCTIONS: 1. Location: Home. 2. Diet: Low carb, heart healthy. 3. Activity: Ad deepthi. 4. Follow up with PCP in one week and with GI, Dr. Aragon in one week. Job ID: [id number] MTDD
== END 2019-04-20 19:30 | disposition home or self-care (01) | DRG 378 ==
LOC: ERS 11:53 → T4-A 15:04
PROVIDERS: ADMIT Family Medicine; ATTEND Family Medicine
PROC: 30233N1 Transfusion of Nonautologous Red Blood Cells into Peripheral Vein, Percutaneous Approach (ICD-10-PCS; 2019-04-18)
PROC: 0DB98ZX Excision of Duodenum, Via Natural or Artificial Opening Endoscopic, Diagnostic (ICD-10-PCS; principal; 2019-04-19)
DX: K26.4 Chronic or unspecified duodenal ulcer with hemorrhage (principal); I13.0 Hypertensive heart and chronic kidney disease with heart failure and stage 1 through stage 4 chronic kidney disease, or unspecified chronic kidney disease; I50.22 Chronic systolic (congestive) heart failure; K50.90 Crohn's disease, unspecified, without complications; D64.9 Anemia, unspecified; E11.22 Type 2 diabetes mellitus with diabetic chronic kidney disease; D63.1 Anemia in chronic kidney disease; I25.10 Atherosclerotic heart disease of native coronary artery without angina pectoris; G25.81 Restless legs syndrome; F32.9 Major depressive disorder, single episode, unspecified; N18.3 Chronic kidney disease, stage 3 (moderate); E66.9 Obesity, unspecified; Z95.1 Presence of aortocoronary bypass graft; Z95.810 Presence of automatic (implantable) cardiac defibrillator; Z87.891 Personal history of nicotine dependence; Z90.49 Acquired absence of other specified parts of digestive tract; Z79.4 Long term (current) use of insulin; Z79.899 Other long term (current) drug therapy; Z88.2 Allergy status to sulfonamides; Z79.82 Long term (current) use of aspirin; Z79.01 Long term (current) use of anticoagulants; Z68.33 Body mass index [BMI] 33.0-33.9, adult
CPT/HCPCS: 36415; 36416; 36430; 71045; 74245; 78278; 80048; 80053; 82010; 82550; 83516; 83690; 83880; 84484; 85025; 85610; 85730; 86850; 86900; 86901; 88305; 93005; 96361; 96374; A9604; C9113; J1825; J2250; P9016

== ENCOUNTER 2019-08-31 13:35 | Outpatient (CLI) | payer MEDICARE ==
--- NOTE | 2019-08-31 14:52 | ULT ---
US Renal Bilateral STANDARD: 08/31/2019 12:00 AM CLINICAL HISTORY: Chronic kidney disease. 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 STUDY: Renal ultrasound COMPARISON: None. FINDINGS: Right kidney: Absent Left kidney: Echogenicity: Normal. Masses/cysts: Multiple anechoic cysts measuring up to 5.0 cm in size. Hydronephrosis: None. Calcifications: None. Length: 8.7 cm Limited visualization of the urinary bladder is unremarkable. IMPRESSION: Left renal cysts
== END 2019-08-31 13:36 | disposition home or self-care (01) ==
LOC: BICULT 13:35
PROVIDERS: ATTEND Internal Medicine Nephrology
DX: N18.3 Chronic kidney disease, stage 3 (moderate) (principal); N28.1 Cyst of kidney, acquired
CPT/HCPCS: 76770

== ENCOUNTER 2021-04-10 13:20 | Outpatient (CLI) | payer OTHER | END 2021-04-10 13:21 | disposition home or self-care (01) | LOC: BICRAD 13:20 | PROVIDERS: ATTEND Internal Medicine Critical Care Medicine | DX: R06.00 Dyspnea, unspecified (principal); R91.8 Other nonspecific abnormal finding of lung field; Z98.890 Other specified postprocedural states | CPT/HCPCS: 71046 ==

== ENCOUNTER 2021-08-09 20:22 | Inpatient (IN) | payer OTHER ==
[2021-08-09 20:49] LABS: #Basophils 0.1 thou/uL (0.0-0.2); #Eosinphils 0.2 thou/uL (0.0-0.7); #Lymphocytes 1.9 thou/uL (1.20-3.40); #Monocytes 0.8 thou/uL (0.11-0.59); #Neutrophils 5.4 thou/uL (1.40-6.50); %Basophils 0.6 % (0.0-1.0); %Eosinophils 2.4 % (0.0-10.0); %Lymphocytes 23.1 % (21.0-51.0); %Monocytes 9.6 % (0.0-10.0); %Neutrophils 64.4 % (42.0-75.0); Hemoglobin 10.4 g/dL (14.0-18.0); Mean Corpuscular HGB CONC 30.4 g/dL (32.0-36.0); Mean Corpuscular Hemoglobin 23.4 pg (27.0-31.0); Mean Corpuscular Volume 76.8 fL (78.0-98.0); Mean Platelet Volume 11.4 fL (7.4-10.4); Platelet Count 205 thou/uL (130-400); RBC Distribution Width 17.6 % (11.5-14.5); Red Blood Cell (RBC) Count 4.44 mill/uL (4.70-6.10); White Blood Cell (WBC) Count 8.3 thou/uL (4.8-10.8)
[2021-08-09 21:09] LABS: ALT (SGPT) 10 U/L (8-55); AST (SGOT) 8 U/L (5-34); Albumin 3.7 g/dL (3.4-4.8); Alkaline Phosphatase 110 U/L (40-110); Anion Gap 14 mmol/L (10-20); BUN (Urea Nitrogen) 41 mg/dL (8.4-25.7); Bilirubin, Total 0.4 mg/dL (0.2-1.2); Calc. Creatinine Clearance 0 mL/min (70-130); Calcium 8.1 mg/dL (7.8-10.44); Carbon Dioxide 20 mmol/L (23-31); Chloride 110 mmol/L (98-107); Globulin 3.3 g/dL (2.4-3.5); Glucose 239 mg/dL (83-110); Potassium 4.8 mmol/L (3.5-5.1); Sodium 139 mmol/L (136-145)
[2021-08-10 07:13] LABS: Bilirubin Negative (Negative); Blood, Urine Trace (Negative); Clarity Turbid (Clear); Glucose, Urine (Dipstick) Normal (Negative); Ketone, Urine Negative (Negative); Leukocyte 500 Leu/uL (Negative); Nitrite Negative (Negative); Protein, Urine (Dipstick) 20 mg/dL (Neg-Trace); RBC/HPF 0-3 HPF (0-3); Specific Gravity, Urine 1.014 (1.002-1.036); Squamous Epithelial 0-3 HPF (0-3); Urobilinogen Normal mg/dL (Less than 2); pH, Urine 5.5 (5.0-9.0)
[2021-08-10 07:14] LABS: Bacteria/HPF 1+ HPF (None Seen); WBC/HPF 21-50 HPF (0-3)
[2021-08-10 07:48] LABS: SARS-CoV-2 NAA Rapid Test Not Detected (NotDetected)
[2021-08-10 08:09] VITALS: BMI 39.2
[2021-08-10] MEDS ORDERED: Acetaminophen 325 MG TAB PO PRN (11:11)
[2021-08-10] MEDS: Sodium Chloride 0.9% 1,000 ML IV SCH ×2 (11:41→18:05)
[2021-08-10] MEDS ORDERED: NOVOLOG 100 UNIT/ML SC PRN (13:36)
[2021-08-10] MEDS ORDERED: TRAZODONE 100 MG TAB PO PRN (13:37)
[2021-08-10] MEDS ORDERED: Dextrose 5% in Water 1,000 ML IV PRN (13:38)
[2021-08-10] MEDS ORDERED: Dextrose 50% Abboject 50 ML SYRINGE SLOW IVP PRN (13:38)
[2021-08-10] MEDS ORDERED: HumaLOG 300 UNITS/3 ML VIAL SC PRN ×2 (13:38→18:55)
[2021-08-10] MEDS ORDERED: PROAIR 90 MCG INH PRN ×2 (13:39→18:29)
[2021-08-10] MEDS ORDERED: ACETAMINOPHEN/CODEINE #3 TAB PO PRN (13:41)
[2021-08-10] MEDS ORDERED: CYCLOBENZAPRINE 10 MG TAB PO PRN (13:45)
[2021-08-10] MEDS ORDERED: traMADol HCl 50 MG TAB PO PRN (13:45)
[2021-08-10] MEDS: ROPINIROLE 2 MG PO SCH (21:04)
[2021-08-10] MEDS: ENTRESTO PO SCH (21:05)
[2021-08-10] MEDS: GABAPENTIN 600 MG PO SCH (21:05)
[2021-08-10] MEDS: CARVEDILOL 25 MG TAB PO SCH (21:05)
[2021-08-10] MEDS: ATORVASTATIN 40 MG TAB PO SCH (21:05)
[2021-08-10] MEDS: LEVEMIR 100 UNIT/ML SC SCH (21:06)
[2021-08-11] MEDS: Sodium Chloride 0.9% 1,000 ML IV SCH ×2 (02:07→16:01)
[2021-08-11 05:48] LABS: #Eosinphils 0.3 thou/uL (0.0-0.7); #Lymphocytes 1.7 thou/uL (1.20-3.40); #Monocytes 0.6 thou/uL (0.11-0.59); #Neutrophils 3.9 thou/uL (1.40-6.50); %Basophils 0.6 % (0.0-1.0); %Lymphocytes 25.9 % (21.0-51.0); %Monocytes 9.2 % (0.0-10.0); %Neutrophils 59.3 % (42.0-75.0); Hemoglobin 9.5 g/dL (14.0-18.0); Mean Corpuscular HGB CONC 30.3 g/dL (32.0-36.0); Mean Platelet Volume 11.2 fL (7.4-10.4); Platelet Count 200 thou/uL (130-400); RBC Distribution Width 17.3 % (11.5-14.5); Red Blood Cell (RBC) Count 4.13 mill/uL (4.70-6.10); White Blood Cell (WBC) Count 6.5 thou/uL (4.8-10.8)
[2021-08-11 06:09] LABS: Anion Gap 11 mmol/L (10-20); BUN (Urea Nitrogen) 33 mg/dL (8.4-25.7); Calc. Creatinine Clearance 70 mL/min (70-130); Calcium 8.5 mg/dL (7.8-10.44); Carbon Dioxide 23 mmol/L (23-31); Chloride 112 mmol/L (98-107); Glucose 121 mg/dL (83-110); Potassium 4.4 mmol/L (3.5-5.1)
[2021-08-11 06:18] LABS: Sodium 142 mmol/L (136-145)
[2021-08-11] MEDS: Enoxaparin Sodium 40 MG/0.4 ML SYRINGE SC SCH (08:40)
[2021-08-11] MEDS: ASPIRIN EC 81 MG TAB PO SCH (08:45)
[2021-08-11] MEDS: CARVEDILOL 25 MG TAB PO SCH ×3 (08:47→20:33)
[2021-08-11] MEDS: FUROSEMIDE 40 MG TAB PO SCH (08:48)
[2021-08-11] MEDS: GLUCOSAMINE CHONDROITIN PO SCH (08:49)
[2021-08-11] MEDS: ENTRESTO PO SCH ×2 (08:49→20:33)
[2021-08-11] MEDS: TAMSULOSIN 0.4 MG CAP PO SCH (08:50)
[2021-08-11] MEDS: LEVEMIR 100 UNIT/ML SC SCH ×2 (08:54→20:30)
[2021-08-11] MEDS ORDERED: Loperamide HCl 2 MG CAP PO PRN (18:48)
[2021-08-11] MEDS: ROPINIROLE 2 MG PO SCH (20:32)
[2021-08-11] MEDS: GABAPENTIN 600 MG PO SCH (20:33)
[2021-08-11] MEDS: ATORVASTATIN 40 MG TAB PO SCH (20:33)
[2021-08-12] MEDS: Sodium Chloride 0.9% 1,000 ML IV SCH (03:51)
[2021-08-12] MEDS: ASPIRIN EC 81 MG TAB PO SCH (09:17)
[2021-08-12] MEDS: Enoxaparin Sodium 40 MG/0.4 ML SYRINGE SC SCH (09:17)
[2021-08-12] MEDS: GLUCOSAMINE CHONDROITIN PO SCH (09:18)
[2021-08-12] MEDS: TAMSULOSIN 0.4 MG CAP PO SCH (09:18)
[2021-08-12] MEDS: ENTRESTO PO SCH (09:18)
[2021-08-12] MEDS: CARVEDILOL 25 MG TAB PO SCH (09:18)
[2021-08-12] MEDS: LEVEMIR 100 UNIT/ML SC SCH (09:18)
[2021-08-12] MEDS: FUROSEMIDE 40 MG TAB PO SCH (09:18)
[2021-08-12 11:02] VITALS: BP 118/70; TEMP 97.6
[2021-08-13] MEDS ORDERED: FLU VACC QS2021-22(65YR UP)/PF 240 MCG/0.7 ML SYRINGE IM ONE (09:45)
== END 2021-08-12 13:17 | disposition home or self-care (01) | DRG 948 ==
LOC: ERS 20:22 → ERHOLD 08-10 00:24 → 3SE 08-10 07:38 → OBSVTOIN 08-10 13:34
PROVIDERS: ADMIT Student in an Organized Health Care Education/Training Program; ATTEND Internal Medicine
DX: R41.0 Disorientation, unspecified (principal); N17.9 Acute kidney failure, unspecified; E11.9 Type 2 diabetes mellitus without complications; I10 Essential (primary) hypertension; E78.5 Hyperlipidemia, unspecified; I25.10 Atherosclerotic heart disease of native coronary artery without angina pectoris; Z20.822 Contact with and (suspected) exposure to COVID-19; D63.8 Anemia in other chronic diseases classified elsewhere; R53.1 Weakness; Z88.2 Allergy status to sulfonamides; Z79.4 Long term (current) use of insulin; Z79.899 Other long term (current) drug therapy; Z90.49 Acquired absence of other specified parts of digestive tract; Z95.1 Presence of aortocoronary bypass graft; Z98.890 Other specified postprocedural states
CPT/HCPCS: 36415; 36416; 70450; 71045; 80048; 80053; 81003; 81015; 84484; 85025; 90471; 90732; 93005; 93306; 93880; G0009; J1650; J7050; U0002

== ENCOUNTER 2022-04-29 13:55 | Outpatient (CLI) | payer OTHER | END 2022-04-29 13:56 | disposition home or self-care (01) | LOC: LABBT 13:55 | PROVIDERS: ATTEND Internal Medicine Gastroenterology | DX: N18.9 Chronic kidney disease, unspecified (principal); K50.00 Crohn's disease of small intestine without complications; R31.9 Hematuria, unspecified; D50.9 Iron deficiency anemia, unspecified; Z20.822 Contact with and (suspected) exposure to COVID-19 | CPT/HCPCS: U0003; U0005 ==